=== PATIENT | female | born 1950 | race Caucasian/White ===

== ENCOUNTER → 2016-04-01 | Outpatient (CLI) | payer OTHER ==
--- NOTE | 2016-04-01 13:18 | XR ---
EXAMINATION TYPE: XR chest 2V DATE OF EXAM: 04/01/2016 11:51 AM COMPARISON: Chest x-ray February 13, 2016 HISTORY: Abnormal lung findings per order. Abnormal x-ray with fluid in lungs per patient. TECHNIQUE: Frontal and lateral views of the chest are obtained. FINDINGS: Low lung volumes with mild central vascular congestion is felt still present. There is no n ew focal air space opacity, pleural effusion, or pneumothorax seen bilaterally on current study. Poor visualization of right heart border is unchanged from 2010 study. The cardiac silhouette size is sta ble and mildly enlarged. Some atherosclerotic change in aortic knob is present. Postsurgical change l ower cervical spine is partially imaged. IMPRESSION: Low lung volumes redemonstrated unchanged from 2010 study. There is mild cardiomegaly wi th suspected mild central vascular congestion, CHF exacerbation cannot be excluded. Clinical correlat ion advised. No significant change from most recent x-ray noted.
== END | disposition home or self-care (01) ==
LOC: RADXRMAIN 11:37
PROVIDERS: ATTEND Family Medicine
DX: I51.7 Cardiomegaly (principal)
CPT/HCPCS: 71020

== ENCOUNTER → 2016-05-15 | Outpatient (CLI) | payer OTHER ==
--- NOTE | 2016-05-16 14:33 | MM ---
Reason for exam: screening (asymptomatic). Last mammogram was performed 1 year ago. History: Patient is postmenopausal and has history of endometrial cancer at age 23. Family history of breast cancer in sister at age 62. Took hormonal contraceptives for 2 years beginning at age 28. Physical Findings: A clinical breast exam by your physician is recommended on an annual basis and results should be correlated with mammographic findings. MG Screening Mammo w CAD Bilateral CC and MLO view(s) were taken. Prior study comparison: May 09, 2015, bilateral MG screening mammo w CAD. December 01, 2012, bilateral digital screening mammo w/CAD. There are scattered fibroglandular densities. No significant changes when compared with prior studies. ASSESSMENT: Benign, BI-RAD 2 RECOMMENDATION: Routine screening mammogram of both breasts in 1 year.
== END ==
LOC: RADMAMWWP 11:03
PROVIDERS: ATTEND Family Medicine
DX: Z12.31 Encounter for screening mammogram for malignant neoplasm of breast (principal)

== ENCOUNTER → 2018-02-13 | Outpatient (CLI) | payer MEDICARE ==
--- NOTE | 2018-02-13 16:57 | XR ---
EXAMINATION TYPE: XR chest 2V DATE OF EXAM: 02/13/2018 COMPARISON: 04/01/2016 HISTORY: Chest pain for months TECHNIQUE: Frontal and lateral views of the chest are obtained. FINDINGS: Minimal pulmonary vascular congestion is seen as appreciated on the prior exam in 2017. Ag ain there is mild cardiomegaly. No sizable pleural effusion or pneumothorax. No focal consolidation. Postsurgical changes of the cervical spine are partially visualized. IMPRESSION: Similar-appearing mild pulmonary vascular congestion and cardiomegaly in comparison to t he exam of 2017 suggest cardiogenic fluid overload/CHF exacerbation.
== END | disposition home or self-care (01) ==
LOC: RADXRMAIN 16:27
PROVIDERS: ATTEND Family Medicine
DX: R07.89 Other chest pain (principal)
CPT/HCPCS: 71046

== ENCOUNTER → 2018-07-02 | Outpatient (CLI) | payer MEDICARE ==
--- NOTE | 2018-07-03 13:31 | MM ---
Reason for exam: screening (asymptomatic). Last mammogram was performed 2 years and 2 months ago. History: Patient is postmenopausal and has history of endometrial cancer at age 23. Family history of breast cancer in sister at age 62. Took hormonal contraceptives for 2 years beginning at age 28. Physical Findings: A clinical breast exam by your physician is recommended on an annual basis and results should be correlated with mammographic findings. MG Screening Mammo w CAD Bilateral CC and MLO view(s) were taken. Prior study comparison: May 15, 2016, bilateral MG screening mammo w CAD. May 09, 2015, bilateral MG screening mammo w CAD. There are scattered fibroglandular densities. No suspicious abnormality. No significant changes when compared with prior studies. ASSESSMENT: Negative, BI-RAD 1 RECOMMENDATION: Routine screening mammogram of both breasts in 1 year.
== END | disposition home or self-care (01) ==
LOC: RADMAMWWP 12:53
PROVIDERS: ATTEND Family Medicine
DX: Z12.31 Encounter for screening mammogram for malignant neoplasm of breast (principal)
CPT/HCPCS: 77067

== ENCOUNTER → 2020-01-17 | Outpatient (CLI) | payer MEDICARE ==
--- NOTE | 2020-01-17 15:19 | XR ---
EXAMINATION TYPE: XR chest 2V DATE OF EXAM: 01/17/2020 COMPARISON: CXR from 02/13/2018. HISTORY: Cough. TECHNIQUE: Frontal and lateral views of the chest are obtained. FINDINGS: There is no focal air space opacity, pleural effusion, or pneumothorax seen. The cardiac silhouette size is stable and mildly enlarged. Surgical change cervical spine partially imaged.. IMPRESSION: Cardiomegaly without acute pulmonary process. No significant change from prior.
== END | disposition home or self-care (01) ==
LOC: RADXRMAIN 14:07
PROVIDERS: ATTEND Family Medicine
DX: I51.7 Cardiomegaly (principal)
CPT/HCPCS: 71046

== ENCOUNTER → 2020-02-21 | Outpatient (CLI) | payer MEDICARE ==
--- NOTE | 2020-02-21 12:46 | FL ---
MODIFIED SWALLOW / DEGLUTITION STUDY DATE OF EXAM: 02/21/2020 CLINICAL HISTORY: 69-year-old female R13.10, dysphagia, recent cervical fusion, trouble swallowing. TECHNIQUE: Deglutition study is performed utilizing thin liquid barium, honey and nectar thick liqui d barium, barium thick applesauce, and barium coated cracker. COMPARISON: None. Total fluoroscopy time: 1 minute 53 seconds. Total images: None. Real-time fluoroscopy support was provided to speech pathology. FINDINGS: Status post C3-C6 posterior cervical fusion. There is pronounced cervical kyphosis. Some prevertebral soft tissue thickening likely positional. The oral and pharyngeal phases show satisfactory initiation and propagation with all modalities teste d. Normal mastication is seen with solid modalities tested. There is no evidence of penetration or aspiration with any modality tested. Mild CP spasm is noted. No significant pharyngeal residue was appreciated. IMPRESSION: Normal oropharyngeal phase. Mild CP spasm. Please refer to speech therapist notes for further details if necessary.
== END | disposition home or self-care (01) ==
LOC: RADFLMAIN 11:34
PROVIDERS: ATTEND Otolaryngology
DX: R13.10 Dysphagia, unspecified (principal)
CPT/HCPCS: 74230

== ENCOUNTER → 2020-05-04 | Outpatient (CLI) | payer MEDICARE ==
--- NOTE | 2020-05-05 14:10 | MM ---
Reason for exam: screening (asymptomatic). Last mammogram was performed 1 year and 10 months ago. History: Patient is postmenopausal and has history of endometrial cancer at age 23. Family history of breast cancer in sister at age 62. Took hormonal contraceptives for 2 years beginning at age 28. Physical Findings: A clinical breast exam by your physician is recommended on an annual basis and results should be correlated with mammographic findings. MG Screening Mammo w CAD Bilateral CC and MLO view(s) were taken. Prior study comparison: July 02, 2018, bilateral MG screening mammo w CAD. May 15, 2016, bilateral MG screening mammo w CAD. There are scattered fibroglandular densities. There is no discrete abnormality. No significant changes when compared with prior studies. ASSESSMENT: Negative, BI-RAD 1 RECOMMENDATION: Routine screening mammogram of both breasts in 1 year.
== END | disposition home or self-care (01) ==
LOC: RADMAMWWP 09:57
PROVIDERS: ATTEND Family Medicine
DX: Z12.31 Encounter for screening mammogram for malignant neoplasm of breast (principal)
CPT/HCPCS: 77067

== ENCOUNTER → 2020-05-15 | Outpatient (CLI) | payer MEDICARE ==
--- NOTE | 2020-05-15 14:37 | XR ---
EXAMINATION TYPE: XR elbow limited LT DATE OF EXAM: 05/15/2020 CLINICAL HISTORY: Pain. TECHNIQUE: Frontal and lateral images of the left elbow are obtained. COMPARISON: None FINDINGS: There is no acute fracture/dislocation evident in the left elbow. No abnormal fat pad sig ns are seen. The overlying soft tissue appears unremarkable. IMPRESSION: As above.
== END ==
LOC: RADXRMAIN 14:14
PROVIDERS: ATTEND Family Medicine
DX: M25.522 Pain in left elbow (principal)

== ENCOUNTER → 2021-01-19 | Outpatient (CLI) | payer MEDICARE ==
[2021-01-19 15:17] LABS: HCT 42.5 % (37.2-46.3); HGB 13.2 g/dL (12.0-15.0); MCHC 31.1 g/dL (32.0-37.0); MCV 99.8 fL (80.0-97.0); Platelet Count 234 X 10*3/uL (140-440); RBC 4.26 X 10*6/uL (4.10-5.20); RDW 14.3 % (11.5-14.5); WBC 7.69 X 10*3/uL (4.50-10.00)
[2021-01-19 16:14] LABS: African American GFR (CKD) 56.2 (60.0-200.0); Anion Gap 11.4 mmol/L (4.00-12.00); BUN/Creat Ratio 20.43 Ratio (12.00-20.00); Blood Urea Nitrogen 23.5 mg/dL (9.0-27.0); Non-African American GFR(CKD) 48.5 (60.0-200.0); Potassium 5.3 mmol/L (3.5-5.5)
== END | disposition home or self-care (01) ==
LOC: LABWHC1 10:20
PROVIDERS: ATTEND Internal Medicine Cardiovascular Disease
DX: R60.0 Localized edema (principal)
CPT/HCPCS: 36415; 80048; 83880; 84443; 85027

== ENCOUNTER → 2021-02-06 | Outpatient (CLI) | payer MEDICARE ==
--- NOTE | 2021-02-06 15:57 | XR ---
EXAMINATION TYPE: XR knee limited LT DATE OF EXAM: 02/06/2021 CLINICAL HISTORY: Chronic pain. TECHNIQUE: Frontal and lateral views of the left knee are obtained. COMPARISON: Bilateral leg x-rays January 11, 2010 FINDINGS: There is no acute fracture/dislocation evident in left knee. Mild to moderate narrowing wi th mild spurring patellofemoral compartment. Mild narrowing medial tibiofemoral compartment. Focal c alcification near MCL insertion consistent with a Tim Stieda lesion noted. Meniscal calcificat ion laterally is seen. Overlying clothing material is present. IMPRESSION: As above.
== END | disposition home or self-care (01) ==
LOC: RADXRMAIN 15:27
PROVIDERS: ATTEND Family Medicine
DX: M17.12 Unilateral primary osteoarthritis, left knee (principal)

== ENCOUNTER → 2021-08-14 | Outpatient (CLI) | payer MEDICARE ==
--- NOTE | 2021-08-14 12:24 | XR ---
EXAMINATION TYPE: XR lumbar spine 2 or 3V DATE OF EXAM: 08/14/2021 CLINICAL HISTORY: Intervertebral disc degeneration. TECHNIQUE: Frontal and lateral images of the lumbar spine are obtained. COMPARISON: MRI lumbar spine 2013 FINDINGS: There are 5 lumbar type vertebral bodies identified. There is dextroconvex scoliosis cente red at L2-L3 level. There is grade 1 anterolisthesis L4 on L5 and slight grade 1 retrolisthesis L5 on S1. There is grade 1 retrolisthesis L1 on L2 and L2 on L3. Findings were prominent from prior MRI. T here is severe disc space narrowing with vacuum disc phenomenon at L5-S1 level with endplate sclerosi s. There is moderate to severe disc space narrowing L1-L2 level. Moderate multilevel anterior and lat eral spurring in the lower thoracic and upper lumbar spine. Moderate to severe overlying arterial vas cular calcification. IMPRESSION: As above.
== END | disposition home or self-care (01) ==
LOC: RADXRMAIN 11:30
PROVIDERS: ATTEND Family Medicine
DX: M51.37 Other intervertebral disc degeneration, lumbosacral region (principal)
CPT/HCPCS: 72100

== ENCOUNTER 2021-10-18 08:17 | Day surgery (SDC) | payer MEDICARE ==
--- NOTE | 2021-10-18 08:04 | P.GSHP ---
History of Present Illness H&P Date: 10/18/21 CHIEF COMPLAINT: Colon screen HISTORY OF PRESENT ILLNESS: The patient is a 70-year-old female who presents for colon screen. Lower endoscopy was offered for further evaluation and management. PAST MEDICAL HISTORY: Please see list. PAST SURGICAL HISTORY: Please see list. MEDICATIONS: Please see list. ALLERGIES: Please see list. SOCIAL HISTORY: No illicit drug use FAMILY HISTORY: No reports of Crohn disease or ulcerative colitis. REVIEW OF ORGAN SYSTEMS: CONSTITUTIONAL: No reports of fevers or chills. PHYSICAL EXAM: VITAL SIGNS: Stable GENERAL: Well-developed pleasant in no acute distress. HEENT: No scleral icterus. Extraocular movements grossly intact. Moist buccal mucosa. NECK: Supple without lymphadenopathy. CHEST: Unlabored respirations. Equal bilateral excursions. CARDIOVASCULAR: Regular rate and rhythm. Distal 2+ pulses. ABDOMEN: Soft, nontender, nondistended. MUSCULOSKELETAL: No clubbing, cyanosis, or edema. ASSESSMENT: 1. Colon screen. PLAN: 1. Recommend proceeding with a lower endoscopy Past Medical History Past Medical History: COPD, GERD/Reflux, Hyperlipidemia, Hypertension, Memory Impairment, Osteoarthritis (OA), Thyroid Disorder Additional Past Medical History / Comment(s): urinary incontinence, crushed tailbone-hard to walk, herniated discs History of Any Multi-Drug Resistant Organisms: None Reported Past Surgical History: Appendectomy, Section, Heart Catheterization Additional Past Surgical History / Comment(s): NECK FUSION, colonoscopy Past Anesthesia/Blood Transfusion Reactions: No Reported Reaction, Motion Sickness Smoking Status: Current every day smoker - Past Family History Mother Family Medical History: Cancer Father Family Medical History: Cancer Additional Family Medical History / Comment(s): PROSTATE Brother(s) Family Medical History: Cancer Additional Family Medical History / Comment(s): ESOPHAGUS CANCER Sister(s) Family Medical History: Cancer Additional Family Medical History / Comment(s): BREAST Medications and Allergies Home Medications Medication Instructions Recorded Confirmed Type Cholecalciferol [Vitamin D3] 2,000 unit PO DAILY 08/29/15 10/17/21 History Levothyroxine Sodium [Synthroid] 50 mcg PO DAILY 08/29/15 10/17/21 History Oxybutynin Chloride [Ditropan] 5 mg PO TID 08/29/15 10/17/21 History Pregabalin [Lyrica] 200 mg PO TID 08/29/15 10/17/21 History Simvastatin [Zocor] 40 mg PO HS 08/29/15 10/17/21 History Acetaminophen [Tylenol Arthritis] 650 mg PO BID PRN 10/24/15 10/17/21 History Aspirin EC [Ecotrin] 81 mg PO DAILY 10/24/15 10/17/21 History Donepezil HCl [Aricept] 10 mg PO HS 10/17/21 10/17/21 History Furosemide [Lasix] 20 mg PO DAILY 10/17/21 10/17/21 History Ginkgo Biloba [place] Extract [Ginkgo 40 mg PO DAILY 10/17/21 10/17/21 History Biloba] HYDROcodone/APAP 5-325MG [[place] 2 tab PO TID 10/17/21 10/17/21 History 5-325] Metoprolol Succinate (ER) [Toprol 12.5 mg PO HS 10/17/21 10/17/21 History Xl] Omeprazole 20 mg PO HS 10/17/21 10/17/21 History PARoxetine [Paxil] 60 mg PO DAILY 10/17/21 10/17/21 History Potassium Chloride [Klor-Con 8] 8 meq PO DAILY 10/17/21 10/17/21 History buPROPion HCL [buPROPion HCL SR] 150 mg PO Q12HR 10/17/21 10/17/21 History Allergies Allergy/AdvReac Type Severity Reaction Status Date / Time Penicillins Allergy Rash/Hives Verified 10/17/21 10:42 venom-honey bee Allergy Swelling Verified 10/17/21 10:03 [bee venom (honey bee)]
[~2021-10-18 08:17] MED LIST: LACTATED RINGERS 1,000 ML IV SCH
[2021-10-18 08:50] VITALS: TEMP 97.1
[2021-10-18] MEDS ORDERED: PROPOFOL 10 MG/ML 20 ML VIAL IV ONE (09:10)
[2021-10-18] MEDS ORDERED: LIDOCAINE 2% INJ 20 MG/ML (2 ML VIAL) ONE (09:10)
--- NOTE | 2021-10-18 09:35 | P.PCN ---
Date of Procedure: 10/18/21 Description of Procedure: PREOPERATIVE DIAGNOSIS: Personal history of colon polyps Colonoscopy screening POSTOPERATIVE DIAGNOSIS: Tubular adenoma transverse colon Internal hemorrhoids, grade 2 OPERATION: Colonoscopy to the ileocecal valve and appendiceal orifice, cecum Colonoscopy with hot snare polypectomy SURGEON: Lissa Yu MD. ANESTHESIA: MAC. INDICATIONS: The patient is an 70-year-old female who presents personal history of colon polyps. Last colonoscopy less than 5 years. Benefits and risks were described and informed consent was obtained. DESCRIPTION OF PROCEDURE: The patient had undergone Sutab prep. The patient had been brought into the operating room and laid in the left lateral decubitus position. After adequate intravenous sedation, the rectum was examined with 2% lidocaine jelly. External hemorrhoids were encountered. The rectal tone was within normal limits. No lesions were palpated in the rectal vault. An Olympus colonoscope was advanced until the cecum, ileocecal valve and appendiceal orifice were clearly viewed. The prep was excellent. No sigmoid diverticulosis was encountered. Colonic polyps were found and removed. No evidence of focal colitis was found. Retroflexion of the scope demonstrated grade 2 internal hemorrhoids without active bleeding or inflammation. The colon was desufflated. The patient had tolerated the procedure well. Withdrawal time was over 6 minutes. FINDINGS: Aronchick preparation quality scale 1 (1-5) Internal hemorrhoids, grade 2 External hemorrhoids, grade 2. No arteriovenous malformations. No sigmoid diverticulosis Removal of 1 polyps: - Snare polypectomy transverse colon, 12 mm flat villous adenoma polyp. No focal colitis. RECOMMENDATIONS: Repeat colonoscopy in 2 years, 2023 Plan - Discharge Summary Discharge Rx Participant: No New Discharge Prescriptions: Continue Cholecalciferol [Vitamin D3 (25 Mcg = 1000 Iu)] 2,000 unit PO DAILY Simvastatin [Zocor] 40 mg PO HS Oxybutynin Chloride [Ditropan] 5 mg PO TID Pregabalin [Lyrica] 200 mg PO TID Levothyroxine Sodium [Synthroid] 50 mcg PO DAILY Aspirin EC [Ecotrin Low Dose] 81 mg PO DAILY Acetaminophen [Tylenol Arthritis] 650 mg PO BID PRN PRN Reason: Pain Omeprazole 20 mg PO HS PARoxetine [Paxil] 60 mg PO DAILY HYDROcodone/APAP 5-325MG [Hy[place] 5-325] 2 tab PO TID Furosemide [Lasix] 20 mg PO DAILY Donepezil HCl [Aricept] 10 mg PO HS Metoprolol Succinate (ER) [Toprol XL] 12.5 mg PO HS buPROPion HCL [buPROPion HCL SR] 150 mg PO Q12HR Potassium Chloride [Klor-Con 8] 8 meq PO DAILY Ginkgo Biloba [place] Extract [Ginkgo Biloba] 40 mg PO DAILY Discharge Medication List Cholecalciferol [Vitamin D3 (25 Mcg = 1000 Iu)] 2,000 unit PO DAILY 08/29/15 [History] Levothyroxine Sodium [Synthroid] 50 mcg PO DAILY 08/29/15 [History] Oxybutynin Chloride [Ditropan] 5 mg PO TID 08/29/15 [History] Pregabalin [Lyrica] 200 mg PO TID 08/29/15 [History] Simvastatin [Zocor] 40 mg PO HS 08/29/15 [History] Acetaminophen [Tylenol Arthritis] 650 mg PO BID PRN 10/24/15 [History] Aspirin EC [Ecotrin Low Dose] 81 mg PO DAILY 10/24/15 [History] Donepezil HCl [Aricept] 10 mg PO HS 10/17/21 [History] Furosemide [Lasix] 20 mg PO DAILY 10/17/21 [History] Ginkgo Biloba [place] Extract [Ginkgo Biloba] 40 mg PO DAILY 10/17/21 [History] HYDROcodone/APAP 5-325MG [[place] 5-325] 2 tab PO TID 10/17/21 [History] Metoprolol Succinate (ER) [Toprol XL] 12.5 mg PO HS 10/17/21 [History] Omeprazole 20 mg PO HS 10/17/21 [History] PARoxetine [Paxil] 60 mg PO DAILY 10/17/21 [History] Potassium Chloride [Klor-Con 8] 8 meq PO DAILY 10/17/21 [History] buPROPion HCL [buPROPion HCL SR] 150 mg PO Q12HR 10/17/21 [History] Follow up Appointment(s)/Referral(s): Lissa Yu MD [STAFF PHYSICIAN] - As Needed Patient Instructions/Handouts: *[facility] - (Anesthesia) Endoscopy Discharge Instructions, Colonoscopy (DC), Colorectal Polyps (GEN) Activity/Diet/Wound Care/Special Instructions: Repeat colonoscopy in 3 years, 2024 Discharge Disposition: HOME SELF-CARE
[2021-10-18 09:51] VITALS: BP 136/70; PULSE 58; RESP 18
== END 2021-10-18 10:04 | disposition home or self-care (01) ==
LOC: ORWHC2ENDO 08:17
PROVIDERS: ATTEND Surgery Plastic and Reconstructive Surgery
DX: Z12.11 Encounter for screening for malignant neoplasm of colon (principal); K63.5 Polyp of colon; K64.1 Second degree hemorrhoids; Z86.010 Personal history of colon polyps; I10 Essential (primary) hypertension; E78.5 Hyperlipidemia, unspecified; J44.9 Chronic obstructive pulmonary disease, unspecified; F17.200 Nicotine dependence, unspecified, uncomplicated; E03.9 Hypothyroidism, unspecified; K21.9 Gastro-esophageal reflux disease without esophagitis; M19.90 Unspecified osteoarthritis, unspecified site; F41.9 Anxiety disorder, unspecified; F32.A Depression, unspecified; Z88.0 Allergy status to penicillin; Z91.030 Bee allergy status; Z90.49 Acquired absence of other specified parts of digestive tract; Z80.42 Family history of malignant neoplasm of prostate; Z80.3 Family history of malignant neoplasm of breast; Z80.0 Family history of malignant neoplasm of digestive organs; Z79.890 Hormone replacement therapy; Z79.899 Other long term (current) drug therapy; Z79.82 Long term (current) use of aspirin; Z79.891 Long term (current) use of opiate analgesic
CPT/HCPCS: 88305; 45385; J2704; J2001

== ENCOUNTER → 2021-10-31 | Outpatient (CLI) | payer MEDICARE ==
--- NOTE | 2021-11-01 18:50 | MM ---
Reason for Exam: Screening (asymptomatic). Last mammogram was performed 1 year(s) and 6 month(s) ago. Patient History: Menarche at age 16. First Full-Term at age 26. Postmenopausal. Endometrial cancer, age 23. Hormonal Contraceptives for 2 years from age 28 until age 30. Sister had breast cancer, age 62. Risk Values: Stephanie 5 year model risk: 3.1%. NCI Lifetime model risk: 9.3%. Prior Study Comparison: 05/15/2016 Bilateral Screening Mammogram, [facility]. 07/02/2018 Bilateral Screening Mammogram, [facility]. 05/04/2020 Bilateral Screening Mammogram, [facility]. Tissue Density: There are scattered fibroglandular densities. Findings: Analyzed By CAD. No significant change from prior exams. Overall Assessment: Negative, BI-RAD 1 Management: Screening Mammogram of both breasts in 1 year. 1. Patient should continue monthly self breast exams. 2. A clinical breast exam by your physician is recommended on an annual basis. 3. This exam should not preclude additional follow-up of suspicious palpable abnormalities. Electronically signed and approved by: Suha Doyle M.D. Radiologist
== END | disposition home or self-care (01) ==
LOC: RADMAMWWP 11:23
PROVIDERS: ATTEND Family Medicine
DX: Z12.31 Encounter for screening mammogram for malignant neoplasm of breast (principal)
CPT/HCPCS: 77063; 77067

== ENCOUNTER → 2023-01-07 | Outpatient (CLI) | payer MEDICARE ==
--- NOTE | 2023-01-07 15:51 | XR ---
EXAMINATION TYPE: XR chest 2V DATE OF EXAM: 01/07/2023 3:45 PM CLINICAL INDICATION:Female, 72 years old with history of R06.02 SHORTNESS OF BREATH; COMPARISON: Chest radiographs from 01/17/2020 TECHNIQUE: XR chest 2V Frontal and lateral views of the chest. FINDINGS: Lungs/Pleura: Prominent interstitial lung markings are seen scattered throughout the lungs. No eviden ce of focal consolidation, pneumothorax or pleural effusion. Pulmonary vascularity: Unremarkable. Heart/mediastinum: Cardiomediastinal silhouette is prominent in size. Musculoskeletal: No acute osseous pathology. There is fixation hardware in the lower cervical spine. IMPRESSION: No acute process similar exam to prior.
== END | disposition home or self-care (01) ==
LOC: RADXRMAIN 15:30
PROVIDERS: ATTEND Family Medicine
DX: R06.02 Shortness of breath (principal)
CPT/HCPCS: 71046

== ENCOUNTER → 2023-04-17 | Outpatient (CLI) | payer MEDICARE ==
--- NOTE | 2023-04-17 13:08 | MR ---
EXAMINATION TYPE: MR lumbar spine wo con DATE OF EXAM: 04/17/2023 10:29 AM CLINICAL INDICATION:Female, 72 years old with history of M47.817 RADICULOPATHY; PHH, Severe back pain x15 years travels down both legs COMPARISON: None TECHNIQUE: Multi planar, multi sequence imaging was performed utilizing: T1-weighted, T2-weighted, a nd turbo inversion recovery imaging of the lumbar spine. IV Contrast: cc . (None if empty) FINDINGS: Alignment: The lumbar vertebral bodies have preserved heights and with scoliosis alignment. Grade 2 a nterolisthesis of L4 and L5. Cord: The conus medullaris and the distal spinal cord appear unremarkabl e with regards to their signal intensity and morphology. Bones/Discs: Multilevel disc degeneration changes with osteophyte formation, disc space narrowing, Sc hmorl's nodes, and facet joint arthropathy. No abnormal inversion recovery signal to suggest bony dayna ma. Multilevel disc desiccation is present. Pseudoarthrosis of the spinous processes. T12-L1: Disc bulge and facet joint arthropathy result in mild spinal canal and mild to moderate left and moderate right neural foraminal stenosis. L1-L2: Disc bulge and facet joint arthropathy result in mild spinal canal and severe left and moderat e right neural foraminal stenosis. L2-L3: Disc bulge and facet joint arthropathy result in moderate spinal canal and severe left and mod erate right neural foraminal stenosis. L3-L4: Disc bulge and facet joint arthropathy result in severe spinal canal and moderate to severe bi lateral neural foraminal stenosis. L4-L5: Disc uncovering from grade 2 anterolisthesis and facet joint arthropathy with severe spinal ca nal stenosis and severe right and moderate to severe left bilateral neural foraminal stenosis. L5-S1: Large disc bulge is present centrally which results in mild spinal canal stenosis. Additionall y there is facet joint arthropathy with severe bilateral neural foraminal stenosis. No significant spinal canal or neural foraminal stenosis in the remainder of the visualized levels. Other findings: None. IMPRESSION: 1. Severe L3-L4 and L4-L5 spinal canal stenosis. At L4-L5 secondary to Grade 2 anterolisthesis of L4 and L5. 2. Severe disc degeneration with associated osteoarthritic changes with multilevel neural foraminal stenosis or neural foraminal stenosis worse at L5-S1 with bilateral severe, severe right L4-L5, moder ate to severe bilateral L3-L4, severe left L2-L3, severe left L1-L2. 3. Findings suggesting Baastrup's disease.
== END | disposition home or self-care (01) ==
LOC: RADMRIMAIN 09:09
PROVIDERS: ATTEND Orthopaedic Surgery Orthopaedic Surgery of the Spine
DX: M51.16 Intervertebral disc disorders with radiculopathy, lumbar region (principal); M47.27 Other spondylosis with radiculopathy, lumbosacral region; M48.061 Spinal stenosis, lumbar region without neurogenic claudication; M43.16 Spondylolisthesis, lumbar region; M99.73 Connective tissue and disc stenosis of intervertebral foramina of lumbar region; M41.86 Other forms of scoliosis, lumbar region; M62.830 Muscle spasm of back; M16.12 Unilateral primary osteoarthritis, left hip
CPT/HCPCS: 72148

== ENCOUNTER → 2023-06-09 | Outpatient (CLI) | payer MEDICARE ==
--- NOTE | 2023-06-09 14:26 | FL ---
COMPARISON: NONE DATE OF EXAM: 06/09/2023 HISTORY: Dysphagia A number of thin and thick substances were ingested under the care of the department of speech pathol ogy. There is no evidence of aspiration or penetration. There is no evidence of obstruction. FL TI ME- 1.0 RM3 NO DAP. IMPRESSION: 1. No evidence of aspiration or penetration.
== END | disposition home or self-care (01) ==
LOC: RADFLMAIN 11:03
PROVIDERS: ATTEND Otolaryngology
DX: R13.13 Dysphagia, pharyngeal phase (principal)
CPT/HCPCS: 74230

== ENCOUNTER → 2023-06-09 | Outpatient (CLI) | payer MEDICARE ==
--- NOTE | 2023-06-12 08:56 | MM ---
Reason for Exam: Screening (asymptomatic). Last mammogram was performed 1 year(s) and 7 month(s) ago. Patient History: Menarche at age 16. First Full-Term at age 26. Postmenopausal. Endometrial cancer, age 23. Hormonal Contraceptives for 2 years from age 28 until age 30. Sister had breast cancer, age 62. Sister had breast cancer, age 53. Risk Values: Stephanie 5 year model risk: 5.5%. NCI Lifetime model risk: 14.5%. Prior Study Comparison: 07/02/2018 Bilateral Screening Mammogram, [facility]. 05/04/2020 Bilateral Screening Mammogram, [facility]. 10/31/2021 Bilateral MG 3D screening mammo w/cad, [facility]. Tissue Density: There are scattered areas of fibroglandular density. Findings: Analyzed By CAD. There is no suspicious group of microcalcifications or new suspicious mass in either breast. Benign calcification. Overall Assessment: Benign, BI-RAD 2 Management: Screening Mammogram of both breasts in 1 year. . Patient should continue monthly self-breast exams. A clinical breast exam by your physician is recommended on an annual basis. This exam should not preclude additional follow-up of suspicious palpable abnormalities. Note on Stephanie scores and lifetime risk: 1. A Stephanie score greater than 3% is considered moderate risk. If this is the case, consider specialist referral to assess eligibility for a risk reducing agent. 2. If overall lifetime risk for the development of breast cancer is 20% or higher, the patient may qualify for future screening with alternating mammogram and breast MRI. Electronically signed and approved by: Villa Marinelli M.D. Radiologis
== END | disposition home or self-care (01) ==
LOC: RADMAMWWP 10:39
PROVIDERS: ATTEND Family Medicine
DX: Z12.31 Encounter for screening mammogram for malignant neoplasm of breast (principal); Z80.3 Family history of malignant neoplasm of breast; Z78.0 Asymptomatic menopausal state
CPT/HCPCS: 77063; 77067

== ENCOUNTER → 2023-12-04 | Outpatient (CLI) | payer MEDICARE ==
--- NOTE | 2023-12-15 22:57 | CTL ---
EXAMINATION TYPE: CT Low Dose Lung DATE OF EXAM ORDERED: 12/04/2023 HISTORY: 73-year-old female current smoker with 50 pack-year history. Lung cancer screening. Z12.2 E NCNTR SCREEN F, F17.[address] DLP: 78.[address] CTDI: 2.4 mGy Automated exposure control for dose reduction was used. SCREENING VISIT: Baseline COMPARISON: Radiograph 01/07/2023 TECHNIQUE: Low dose computed tomography scan was performed through the chest at 1 mm thick sections a nd reconstructed images in multiple planes at 1 mm and [address] DIAGNOSTIC QUALITY: Satisfactory FINDINGS: The heart is upper limits of normal in size without pericardial effusion. Scattered three-vessel nicolas nary artery calcifications are present. Ectatic ascending aorta 3.7 cm. Mild atherosclerotic arch calcifications. Conventional arch vessel br anching anatomy. No thoracic lymphadenopathy by CT size criteria. There is scattered mild groundglass change, possibly mosaic attenuation. No kristi consolidation or pl eural effusion. A few scattered pulmonary nodules measuring up to 7 mm, right upper lobe axial image 64, image 89, an d image 91. 4 mm pulmonary nodule left upper lobe, axial image 84. Visualized upper abdomen shows no gross abnormality. There is motion limitation in assessment. Bones: Moderate degenerative disc disease throughout the thoracic spine. No osseous destructive proce ss. IMPRESSION: 1. LungRADS Category 3 (probably benign, 1-2% chance of malignancy). A few scattered pulmonary nodule s measuring up to 7 mm on baseline screening. 2. Additional scattered groundglass change, possible mosaic attenuation. Consider small airways disea se or an interstitial pneumonitis such as NSIP or DIP. Consider pulmonary medicine evaluation if any chronic respiratory symptoms. 3. Scattered coronary artery calcifications. CT LUNG RAD AND CT CHEST RECOMMENDATION: Lung-Rad 3 Probably Benign: 6 month follow-up LDCT. S Modifier (other clinically significant findings): None [facility], , 12/15/2023 10:55 PM
== END | disposition home or self-care (01) ==
LOC: RADCTMAIN 14:08
PROVIDERS: ATTEND Family Medicine
DX: Z12.2 Encounter for screening for malignant neoplasm of respiratory organs (principal); F17.210 Nicotine dependence, cigarettes, uncomplicated; R91.8 Other nonspecific abnormal finding of lung field; I25.10 Atherosclerotic heart disease of native coronary artery without angina pectoris; I70.90 Unspecified atherosclerosis
CPT/HCPCS: 71271

== ENCOUNTER → 2024-01-02 | Outpatient (CLI) | payer MEDICARE ==
--- NOTE | 2024-01-02 10:41 | CT ---
EXAMINATION TYPE: CT brain wo con DATE OF EXAM: 01/02/2024 COMPARISON: 10/24/2015 HISTORY: memory deficit, dizziness CT DLP: 1064 mGycm Automated exposure control for dose reduction was used. FINDINGS: The ventricles, basal cisterns and sulci over the convexities are moderately enlarged consistent with moderate age-appropriate atrophy. There is been interval development of a small lacunar infarct in the region of the posterior limb of the internal capsule on the right. There is no mass effect or shift in midline structures. There is no acute intra or extra-axial hemorrhage. The posterior fossa is grossly normal. The intraorbital contents appear normal symmetric. Visualized paranasal sinuses and mastoid air cells are well aerated. Impression: 1. Moderate age-appropriate atrophy. 2. No acute bleed or mass effect. 3. 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
== END | disposition home or self-care (01) ==
LOC: RADCTMAIN 09:56
PROVIDERS: ATTEND Psychiatry & Neurology Neurology
CPT/HCPCS: 70450

== ENCOUNTER 2024-02-04 05:34 | Emergency (ER) | payer MEDICARE ==
[2024-02-04] MEDS: KETOROLAC 15 MG/ML 1 ML VIAL IVP STA (06:30)
[2024-02-04] MEDS: SODIUM CHLORIDE 0.9% 500 ML 500 ML IV STA (06:30)
[2024-02-04] MEDS: MORPHINE SULFATE 4 MG/ML SYRINGE IVP STA (06:30)
--- NOTE | 2024-02-04 06:31 | ED ---
Fall HPI - General Chief Complaint: Fall Stated Complaint: Fall Time Seen by Provider: 02/04/24 05:57 Source: patient, RN notes reviewed Mode of arrival: EMS Limitations: no limitations - History of Present Illness Initial Comments: This is a 73-year-old female who presents to the emergency department for a fall. Patient states that this morning she lost her balance and fell. Currently has pain over the left hip and right shoulder. She has been able to ambulate since she fell. Denies hitting her head or any loss of consciousness. Not taking any blood thinners. States that she does lose her balance every now and then and this is not abnormal for her. Denies any dizziness, chest pain, or shortness of breath. MD Complaint: fall - Related Data Home Medications Medication Instructions Recorded Confirmed Cholecalciferol [Vitamin D3 (25 2,000 unit PO DAILY 08/29/15 09/25/22 Mcg = 1000 Iu)] Levothyroxine Sodium [Synthroid] 50 mcg PO DAILY 08/29/15 09/25/22 Pregabalin [Lyrica] 200 mg PO TID 08/29/15 09/25/22 Simvastatin [Zocor] 40 mg PO HS 08/29/15 09/25/22 oxyBUTYnin chloride [Ditropan] 5 mg PO TID 08/29/15 09/25/22 Acetaminophen [Tylenol Arthritis] 650 mg PO BID PRN 10/24/15 09/25/22 Aspirin EC [Ecotrin Low Dose] 81 mg PO DAILY 10/24/15 09/25/22 Donepezil HCl [Aricept] 10 mg PO HS 10/17/21 09/25/22 Furosemide [Lasix] 20 mg PO DAILY 10/17/21 09/25/22 HYDROcodone/APAP 5-325MG [[place] 2 tab PO TID 10/17/21 09/25/22 5-325] Omeprazole 20 mg PO HS 10/17/21 09/25/22 PARoxetine [Paxil] 60 mg PO DAILY 10/17/21 09/25/22 Potassium Chloride [Klor-Con 8] 8 meq PO DAILY 10/17/21 09/25/22 buPROPion HCL [buPROPion HCL SR] 150 mg PO Q12HR 10/17/21 09/25/22 Metoprolol Succinate (ER) [Toprol 25 mg PO DAILY 09/27/22 09/27/22 Xl] Umeclidinium Brea [Incruse 1 puff INHALATION PRN 09/27/22 Ellipta] Allergies Allergy/AdvReac Type Severity Reaction Status Date / Time Penicillins Allergy Rash/Hives Verified 02/04/24 05:37 venom-honey bee Allergy Swelling Verified 02/04/24 05:37 [bee venom (honey bee)] Review of Systems ROS Statement: Those systems with pertinent positive or pertinent negative responses have been documented in the HPI. ROS Other: All systems not noted in ROS Statement are negative. Past Medical History Past Medical History: COPD, GERD/Reflux, Hyperlipidemia, Hypertension, Memory Impairment, Osteoarthritis (OA), Thyroid Disorder Additional Past Medical History / Comment(s): urinary incontinence, crushed tailbone, herniated discs History of Any Multi-Drug Resistant Organisms: None Reported Past Surgical History: Appendectomy, Section, Heart Catheterization Additional Past Surgical History / Comment(s): NECK FUSION, colonoscopy Past Anesthesia/Blood Transfusion Reactions: No Reported Reaction, Motion Sickness Past Psychological History: Anxiety, Depression Smoking Status: Former smoker Past Alcohol Use History: Rare Past Drug Use History: None Reported - Past Family History Mother Family Medical History: Cancer Father Family Medical History: Cancer Additional Family Medical History / Comment(s): PROSTATE Brother(s) Family Medical History: Cancer Additional Family Medical History / Comment(s): ESOPHAGUS CANCER Sister(s) Family Medical History: Cancer Additional Family Medical History / Comment(s): BREAST General Exam Limitations: no limitations General appearance: alert, in no apparent distress Head exam: Present: atraumatic, normocephalic, normal inspection Respiratory exam: Present: normal lung sounds bilaterally. Absent: respiratory distress, wheezes, rales, rhonchi, stridor Cardiovascular Exam: Present: regular rate, normal rhythm, normal heart sounds. Absent: systolic murmur, diastolic murmur, rubs, gallop, clicks Extremities exam: Present: other (No shortening or rotation of the left lower extremity. Range of motion limited by pain. 2+ DP and PT pulses. Mild tenderness over the right shoulder and clavicle. Full range of motion. 2+ radial pulses) Neurological exam: Present: alert, oriented X3, CN II-XII intact Psychiatric exam: Present: normal affect, normal mood Skin exam: Present: warm, dry, intact, normal color. Absent: rash Course Vital Signs 02/04/24 05:37 Temperature 96.8 F L Pulse Rate 42 L Respiratory 18 Rate Blood Pressure 135/66 O2 Sat by Pulse 96 Oximetry Medical Decision Making - Medical Decision Making This is a 73-year-old female who presents to the emergency department for a fall. Was pt. sent in by a medical professional or institution? @ -No Did you speak to anyone other than the patient for history? @ -No Did you review nursing and triage notes? @ -Yes, and I agree, it is accurate with regards to the patient's symptoms. Were old charts reviewed? @ -No Differential Diagnosis? @ -Differential Musculoskeletal Muscular strain, contusion, ligament sprain, fracture, arthritis, septic arthritis, bursitis, cellulitis, muscle spasm, nerve compression, DVT, arterial occlusion, herpes zoster, electrolyte abnormality, tumor.... This is not meant to be in all inclusive list EKG interpreted by me (3pts min.)? @ -Not obtained X-rays interpreted by me (1pt min.)? @ -X-ray of the left hip and AP pelvis obtained. My interpretation identifies no acute fractures. X-ray of the right shoulder obtained. My interpretation identifies no acute fractures. CT interpreted by me (1pt min.)? @ -Not obtained U/S interpreted by me (1pt. min.)? @ -Not obtained What testing was considered but not performed? (CT, X-rays, U/S, labs)? Why? @ -None What meds were considered but not given? Why? @ -None Did you discuss the management of the patient with other professionals? @ -No Did you reconcile home meds? @ -No Was smoking cessation discussed for >3mins.? @ -I discussed smoking cessation for greater than 3 minutes. The risk of smoking were discussed with the patient including but not limited to risks of cancer, stroke, coronary artery disease and COPD. Also discussed with patient were multiple methods of quitting smoking. Lastly we discussed the financial cost of smoking. Was critical care preformed (if so, how long)? @ -No Were there social determinants of health that impacted care today? How? (Homelessness, low income, unemployed, alcoholism, drug addiction, transportation, low edu. Level, literacy, decrease access to med. care, usp, rehab)? @ -No Was there de-escalation of care discussed even if they declined? (Discuss DNR or withdrawal of care, Hospice)? @ -No What co-morbidities impacted this encounter? (DM, HTN, Smoking, COPD, CAD, Cancer, CVA, Hep., AIDS, mental health diagnosis, sleep apnea, morbid obesity)? @ -Smoking, osteoarthritis Was patient admitted / discharged? @ -Discharged. X-rays of the left hip and AP pelvis as well as the right shoulder obtained revealing no acute fractures. Pain was managed in the emergency department. She was able to ambulate afterwards and overall felt much better. Advised ibuprofen and Tylenol as needed for pain relief. She does also state that she takes Vicodin at home, but has been without this and needs to follow-up with her PCP for a refill. Advised she do that as well. Patient discharged home in stable condition. Case discussed with ED attending Dr. Willams. Return precautions reviewed in depth, the patient is instructed to return to the emergency department with any new, worsening, or concerning symptoms. Patient verbalized understanding. Undiagnosed new problem with uncertain prognosis? @ -None Drug Therapy requiring intensive monitoring for toxicity (Heparin, Nitro, Insulin, Cardizem)? @ -None Were any procedures done? @ -None Diagnosis/symptom? @ -Fall, left hip pain, right shoulder pain Acute, or Chronic, or Acute on Chronic? @ -Acute Uncomplicated (without systemic symptoms) or Complicated (systemic symptoms)? @ -Uncomplicated Side effects of treatment? @ -None Exacerbation, Progression, or Severe Exacerbation] @ -Not applicable Poses a threat to life or bodily function? @ -No - Radiology Data Radiology results: report reviewed, image reviewed Disposition Clinical Impression: Fall, Left hip pain, Right shoulder pain Disposition: HOME SELF-CARE Instructions (If sedation given, give patient instructions): Fall Prevention for Older Adults (ED) Additional Instructions: Return to the emergency department with any new, worsening, or concerning symptoms. Follow up with your primary care provider to get a refill on your pain medication. Otherwise alternate with ibuprofen and Tylenol. Is patient prescribed a controlled substance at d/c from ED?: No Referrals: Maylin Yu MD [Primary Care Provider] - 1-2 days Time of Disposition: 08:15
--- NOTE | 2024-02-04 06:32 | XR ---
EXAMINATION TYPE: XR shoulder complete RT DATE OF EXAM: 02/04/2024 CLINICAL HISTORY: Fall with pain TECHNIQUE: Three views of the right shoulder are obtained. COMPARISON: None. FINDINGS: There is no acute fracture/dislocation evident in the right shoulder. Moderate narrowing a t the acromioclavicular joint. Glenohumeral joint is preserved. The visualized ribs are intact and un remarkable. IMPRESSION: There is no acute fracture or dislocation in the right shoulder. [facility], , 02/04/2024 6:30 AM
--- NOTE | 2024-02-04 06:34 | XR ---
EXAMINATION TYPE: XR Hip LT and AP Pelvis DATE OF EXAM: 02/04/2024 COMPARISON: NONE HISTORY: Fall with pain TECHNIQUE: A single AP view of the pelvis is obtained. Two views of the left hip are obtained. FINDINGS: There is no acute fracture/dislocation evident in the pelvis or left hip. Advanced degener ative change in the left hip is seen with marked superior joint space loss along with endplate sclero sis. Mild to moderate axial joint space loss right hip is seen. Pubic symphysis is intact. Overlying soft tissues are unremarkable IMPRESSION: There is no acute fracture or dislocation in the pelvis or left hip. [facility], , 02/04/2024 6:32 AM
[2024-02-04] MEDS: KETOROLAC 15 MG/ML 1 ML VIAL IM STA (06:44)
[2024-02-04] MEDS: MORPHINE SULFATE 4 MG/ML SYRINGE IM STA (06:45)
[2024-02-04] MEDS: traMADol 50 MG STARTER PACK 3 TAB BTL PO STA (08:27)
[2024-02-04 08:34] VITALS: BP 135/60; PULSE 44; RESP 19; TEMP 97.6
== END 2024-02-04 08:35 | disposition home or self-care (01) ==
LOC: EC 05:34
DX: M25.552 Pain in left hip (principal); M25.511 Pain in right shoulder; Z87.891 Personal history of nicotine dependence; Z88.0 Allergy status to penicillin; Z91.030 Bee allergy status; W01.0XXA Fall on same level from slipping, tripping and stumbling without subsequent striking against object, initial encounter
CPT/HCPCS: 73502; 73030; 99284; 96372 ×2; J2270; J1885

== ENCOUNTER 2024-02-10 16:32 | Inpatient (IN) | payer MEDICARE ==
--- NOTE | 2024-02-10 16:56 | ED ---
Arrhythmia/Palpitations HPI - General Chief Complaint: Arrhythmia/Palpitations Stated Complaint: heart rate low Time Seen by Provider: 02/10/24 16:50 Source: patient, RN notes reviewed Mode of arrival: wheelchair Limitations: no limitations - History of Present Illness Initial Comments: 73-year-old female with history of hypertension, hyperlipidemia, and COPD presenting to the ER for evaluation of bradycardia. Patient was at [facility] facing baster Dr. Garrett office today where they noted her heart rate was 37. Patient denies chest pain. States she does have shortness of breath but states this is chronic due to her COPD. She takes daily low-dose aspirin, denies blood thinners. She takes metoprolol daily however was told by Dr. Garrett today to discontinue the metoprolol, last dose was this morning. Patient notes that she was evaluated in the ER a week ago for a mechanical fall and noted her blood pressure to be in the 40s at this time. - Related Data Home Medications Medication Instructions Recorded Confirmed Levothyroxine Sodium [Synthroid] 50 mcg PO DAILY 08/29/15 02/10/24 Simvastatin [Zocor] 40 mg PO HS 08/29/15 02/10/24 oxyBUTYnin chloride [Ditropan] 5 mg PO DAILY 08/29/15 02/10/24 Acetaminophen [Tylenol Arthritis] 650 mg PO BID 10/24/15 02/10/24 Aspirin EC [Ecotrin Low Dose] 81 mg PO DAILY 10/24/15 02/10/24 Donepezil HCl [Aricept] 10 mg PO HS 10/17/21 02/10/24 Omeprazole 20 mg PO DAILY 10/17/21 02/10/24 buPROPion HCL [buPROPion HCL SR] 150 mg PO Q12HR 10/17/21 02/10/24 Albuterol Inhaler [Ventolin Hfa 2 puff INHALATION RT-Q6H PRN 02/10/24 02/10/24 Inhaler] Ascorbic Acid [Vitamin C] 1,000 mg PO DAILY 02/10/24 02/10/24 Cholecalciferol [Vitamin D3 (25 50 mcg PO DAILY 02/10/24 02/10/24 Mcg = 1000 Iu)] Cyanocobalamin (Vitamin B-12) 1,000 mcg PO DAILY 02/10/24 02/10/24 [Vitamin B-12] FLUoxetine HCL 40 mg PO DAILY 02/10/24 02/10/24 Ferrous Sulfate [Feosol] 325 mg PO BID 02/10/24 02/10/24 Furosemide [Lasix] 40 mg PO DAILY 02/10/24 02/10/24 HYDROcodone/APAP 10-325MG [[place] 1 tab PO BID PRN 02/10/24 02/10/24 10-325] Memantine [Namenda] 5 mg PO BID 02/10/24 02/10/24 Multivitamins, Thera [Multivitamin 1 tab PO DAILY 02/10/24 02/10/24 (formulary)] Naloxone HCl [Narcan] 4 mg NASAL ONCE PRN 02/10/24 02/10/24 Potassium Chloride [Klor-Con M10] 10 meq PO DAILY 02/10/24 02/10/24 Pregabalin [Lyrica] 200 mg PO TID 02/10/24 02/10/24 Allergies Allergy/AdvReac Type Severity Reaction Status Date / Time Penicillins Allergy Rash/Hives Verified 02/10/24 18:23 venom-honey bee Allergy Swelling Verified 02/10/24 18:23 [bee venom (honey bee)] Review of Systems ROS Statement: Those systems with pertinent positive or pertinent negative responses have been documented in the HPI. ROS Other: All systems not noted in ROS Statement are negative. Past Medical History Past Medical History: COPD, GERD/Reflux, Hyperlipidemia, Hypertension, Memory Impairment, Osteoarthritis (OA), Thyroid Disorder Additional Past Medical History / Comment(s): urinary incontinence, crushed ta ilbone, herniated discs History of Any Multi-Drug Resistant Organisms: None Reported Past Surgical History: Appendectomy, Section, Heart Catheterization Additional Past Surgical History / Comment(s): NECK FUSION, colonoscopy Past Anesthesia/Blood Transfusion Reactions: No Reported Reaction, Motion Sickness Past Psychological History: Anxiety, Depression Smoking Status: Former smoker Past Alcohol Use History: Rare Past Drug Use History: None Reported - Past Family History Mother Family Medical History: Cancer Father Family Medical History: Cancer Additional Family Medical History / Comment(s): PROSTATE Brother(s) Family Medical History: Cancer Additional Family Medical History / Comment(s): ESOPHAGUS CANCER Sister(s) Family Medical History: Cancer Additional Family Medical History / Comment(s): BREAST General Exam Limitations: no limitations General appearance: alert, in no apparent distress Head exam: Present: atraumatic, normocephalic, normal inspection Eye exam: Present: normal appearance, PERRL, EOMI. Absent: scleral icterus, conjunctival injection, periorbital swelling Neck exam: Present: normal inspection. Absent: tenderness, meningismus, lymphadenopathy Respiratory exam: Present: normal lung sounds bilaterally. Absent: respiratory distress, wheezes, rales, rhonchi, stridor Cardiovascular Exam: Present: normal rhythm, bradycardia, normal heart sounds. Absent: systolic murmur, diastolic murmur, rubs, gallop, clicks GI/Abdominal exam: Present: soft, normal bowel sounds. Absent: distended, tenderness, guarding, rebound, rigid Neurological exam: Present: alert, oriented X3 Psychiatric exam: Present: normal affect, normal mood Skin exam: Present: warm, dry, intact, normal color. Absent: rash Course Vital Signs 02/10/24 02/10/24 02/10/24 16:34 16:54 17:52 Temperature 97.6 F 97.7 F Pulse Rate 39 L 37 L 37 L Respiratory 18 16 14 Rate Blood Pressure 121/67 115/64 119/60 O2 Sat by Pulse 96 96 97 Oximetry 02/10/24 02/10/24 02/10/24 18:01 18:34 19:25 Temperature Pulse Rate 36 L 32 L 52 L Respiratory 14 14 19 Rate Blood Pressure 129/60 139/72 123/91 O2 Sat by Pulse 98 99 95 Oximetry EKG Findings - EKG Results: EKG: interpreted by ERMD (EKG reveals sinus bradycardia with nonspecific T wave abnormality. Ventricular rate 36 bpm, AL interval not calculated, QRS duration 89, QT/QTc 367/273) Medical Decision Making - Medical Decision Making Was pt. sent in by a medical professional or institution (, PA, LEAD TEACHER, urgent ca re, hospital, or longterm...) When possible be specific @ -Sent by Dr. Garrett's office for bradycardia Did you speak to anyone other than the patient for history (EMS, parent, family, police, friend...)? What history was obtained from this source @ -Daughter supplemented history Did you review nursing and triage notes (agree or disagree)? Why? @ -I reviewed and agree with nursing and triage notes Were old charts reviewed (outside hosp., previous admission, EMS record, old EKG, old radiological studies, urgent care reports/EKG's, longterm records)? Report findings @ -Vital signs reviewed from previous ER visit and was found to be 42 to 44 bpm Differential Diagnosis (chest pain, altered mental status, abdominal pain women, abdominal pain men, vaginal bleeding, weakness, fever, dyspnea, syncope, headache, dizziness, GI bleed, back pain, seizure, CVA, palpatations, mental health, musculoskeletal)? @ -Differential Palpitations Ventricular arrhythmias, atrial arrhythmias, myocardial infarction, anemia, thyrotoxicosis, electrolyte imbalance, hypokalemia, pulmonary embolism, pulmo nary disease, drugs, alcohol, anxiety, stress.... This is not meant to be an all-inclusive list. EKG interpreted by me (3pts min.). @ -As above X-rays interpreted by me (1pt min.). @ -Chest x-ray reveals no acute process CT interpreted by me (1pt min.). @ -None done U/S interpreted by me (1pt. min.). @ -None done What testing was considered but not performed or refused? (CT, X-rays, U/S, labs)? Why? @ -None What meds were considered but not given or refused? Why? @ -None Did you discuss the management of the patient with other professionals (professionals i.e. , PA, LEAD TEACHER, lab, RT, psych nurse, social director, line dancer, teacher, psychological operations officer, medical case worker)? Give summary @ -I spoke with David from [facility] who accepts admission with cardiology consultation, Dr. García was consulted by Dr. Trejo Was smoking cessation discussed for >3mins.? @ -No Was critical care preformed (if so, how long)? @ -Yes, 45 minutes Were there social determinants of health that impacted care today? How? (Homelessness, low income, unemployed, alcoholism, drug addiction, transportation, low edu. Level, literacy, decrease access to med. care, correction, rehab)? @ -No Was there de-escalation of care discussed even if they declined (Discuss DNR or withdrawal of care, Hospice)? DNR status @ -No What co-morbidities impacted this encounter? (DM, HTN, Smoking, COPD, CAD, Cancer, CVA, ARF, Chemo, Hep., AIDS, mental health diagnosis, sleep apnea, morbid obesity)? @ -None Was patient admitted / discharged? Hospital course, mention meds given and route, prescriptions, significant lab abnormalities, going to OR and other pertinent info. @ -Admitted. This is a 73-year-old female sent by Dr. Garrett's office for evaluation of bradycardia. Patient denies chest pain, is asymptomatic. Patient is bradycardic at 39 bpm, blood pressure 121/67, satting 96% on room air. EKG reveals sinus bradycardia with nonspecific ST changes. Lab work remarkable for hyperkalemia at 5.6, hyponatremia 130, TSH 5.28, creatinine 1.29, BUN 28. Chest x-ray reveals no acute process. Patient was started on IV dopamine drip per cardiology. She was also started on hyperkalemia protocol including calcium gluconate, dextrose, insulin, and Lokelma. Patient was admitted to [facility] with consultation to cardiology. Case was discussed with my ED attending Dr. Trejo. Undiagnosed new problem with uncertain prognosis? @ -No Drug Therapy requiring intensive monitoring for toxicity (Heparin, Nitro, Insulin, Cardizem)? @ -No Were any procedures done? @ -No Diagnosis/symptom? @ -Bradycardia, hyperkalemia Acute, or Chronic, or Acute on Chronic? @ -Acute Uncomplicated (without systemic symptoms) or Complicated (systemic symptoms)? @ -Uncomplicated Side effects of treatment? @ -No Exacerbation, Progression, or Severe Exacerbation? @ -No Poses a threat to life or bodily function? How? (Chest pain, USA, ND, pneumonia, PE, COPD, DKA, ARF, appy, cholecystitis, CVA, Diverticulitis, Homicidal, Suicidal, threat to staff... and all critical care pts) @ -Yes - Lab Data Result diagrams: 02/10/24 17:27 02/10/24 17:27 Lab Results 02/10/24 02/10/24 02/10/24 Range/Units 17:27 17: 17:27 WBC 9.4 (3.8-10.6) k/uL RBC 4.60 (3.80-5.40) m/uL Hgb 14.2 (11.4-16.0) gm/dL Hct 44.1 (34.0-46.0) % MCV 96.0 (80.0-100.0) fL MCH 31.0 (25.0-35.0) pg MCHC 32.3 (31.0-37.0) g/dL RDW 13.3 (11.5-15.5) % Plt Count 243 (150-450) k/uL MPV 9.0 Neutrophils % 62 % Lymphocytes % 27 % Monocytes % 6 % Eosinophils % 2 % Basophils % 0 % Neutrophils # 5.8 (1.3-7.7) k/uL Lymphocytes # 2.6 (1.0-4.8) k/uL Monocytes # 0.5 (0-1.0) k/uL Eosinophils # 0.2 (0-0.7) k/uL Basophils # 0.0 (0-0.2) k/uL PT 11.0 (10.0-12.5) sec INR 1.0 (<1.2) APTT 24.8 (22.0-30.0) sec Sodium 130 L (137-145) mmol/L Potassium 5.6 H (3.5-5.1) mmol/L Chloride 94 L (98-107) mmol/L Carbon Dioxide 29 (22-30) mmol/L Anion Gap 7 mmol/L BUN 28 H (7-17) mg/dL Creatinine 1.29 H (0.52-1.04) mg/dL Est GFR (CKD-EPI)AfAm 48 (>60 ml/min/1.73 sqM) Est GFR (CKD-EPI)NonAf 42 (>60 ml/min/1.73 sqM) Glucose 89 (74-99) mg/dL Plasma Lactic Acid Carlton (0.7-2.0) mmol/L Calcium 10.1 (8.4-10.2) mg/dL Magnesium 1.9 (1.6-2.3) mg/dL Total Bilirubin 0.4 (0.2-1.3) mg/dL AST 31 (14-36) U/L ALT 25 (4-34) U/L Alkaline Phosphatase 59 (38-126) U/L Troponin I (0.000-0.034) ng/mL Total Protein 8.6 H (6.3-8.2) g/dL Albumin 5.0 (3.5-5.0) g/dL TSH 5.280 H (0.465-4.680) mIU/L Free T4 0.95 (0.78-2.19) ng/dL 02/10/24 02/10/24 Range/Units 17:27 17:27 WBC (3.8-10.6) k/uL RBC (3.80-5.40) m/uL Hgb (11.4-16.0) gm/dL Hct (34.0-46.0) % MCV (80.0-100.0) fL MCH (25.0-35.0) pg MCHC (31.0-37.0) g/dL RDW (11.5-15.5) % Plt Count (150-450) k/uL MPV Neutrophils % % Lymphocytes % % Monocytes % % Eosinophils % % Basophils % % Neutrophils # (1.3-7.7) k/uL Lymphocytes # (1.0-4.8) k/uL Monocytes # (0-1.0) k/uL Eosinophils # (0-0.7) k/uL Basophils # (0-0.2) k/uL PT (10.0-12.5) sec INR (<1.2) APTT (22.0-30.0) sec Sodium (137-145) mmol/L Potassium (3.5-5.1) mmol/L Chloride (98-107) mmol/L Carbon Dioxide (22-30) mmol/L Anion Gap mmol/L BUN (7-17) mg/dL Creatinine (0.52-1.04) mg/dL Est GFR (CKD-EPI)AfAm (>60 ml/min/1.73 sqM) Est GFR (CKD-EPI)NonAf (>60 ml/min/1.73 sqM) Glucose (74-99) mg/dL Plasma Lactic Acid Carl[place] 1.1 (0.7-2.0) mmol/L Calcium (8.4-10.2) mg/dL Magnesium (1.6-2.3) mg/dL Total Bilirubin (0.2-1.3) mg/dL AST (14-36) U/L ALT (4-34) U/L Alkaline Phosphatase (38-126) U/L Troponin I <0.012 (0.000-0.034) ng/mL Total Protein (6.3-8.2) g/dL Albumin (3.5-5.0) g/dL TSH (0.465-4.680) mIU/L Free T4 (0.78-2.19) ng/dL Disposition Clinical Impression: Bradycardia, Hyperkalemia Disposition: ADMITTED IP TO THIS HOSP Referrals: Maylin Yu MD [Primary Care Provider] - 1-2 days Time of Disposition: 20:05
[2024-02-10 17:44] LABS: ALT 25 U/L (4-34); AST 31 U/L (14-36); African American GFR (CKD) 48 (>60 ml/min/1.73 sqM); Alkaline Phosphatase 59 U/L (38-126); Anion Gap 7 mmol/L; Blood Urea Nitrogen 28 mg/dL (7-17); Calcium 10.1 mg/dL (8.4-10.2); Carbon Dioxide 29 mmol/L (22-30); Chloride 94 mmol/L (98-107); Glucose 89 mg/dL (74-99); Magnesium 1.9 mg/dL (1.6-2.3); Non-African American GFR(CKD) 42 (>60 ml/min/1.73 sqM); Potassium 5.6 mmol/L (3.5-5.1); Sodium 130 mmol/L (137-145); Total Bilirubin 0.4 mg/dL (0.2-1.3); Total Protein 8.6 g/dL (6.3-8.2)
[2024-02-10 17:50] LABS: Basophils % (A) 0 %; Eosinophils # (A) 0.2 k/uL (0-0.7); Eosinophils % (A) 2 %; HCT 44.1 % (34.0-46.0); HGB 14.2 gm/dL (11.4-16.0); Lymphocytes # (A) 2.6 k/uL (1.0-4.8); Lymphocytes % (A) 27 %; MCHC 32.3 g/dL (31.0-37.0); Monocytes # (A) 0.5 k/uL (0-1.0); Monocytes % (A) 6 %; Neutrophils # (A) 5.8 k/uL (1.3-7.7); Neutrophils % (A) 62 %; Platelet Count 243 k/uL (150-450); RDW 13.3 % (11.5-15.5); WBC 9.4 k/uL (3.8-10.6)
[2024-02-10 18:02] LABS: Partial Thromboplastin Time 24.8 sec (22.0-30.0)
[2024-02-10] MEDS: HYDROcodone/APAP 5-325MG 1 EACH TAB PO STA (18:02)
--- NOTE | 2024-02-10 18:26 | XR ---
EXAMINATION TYPE: XR chest 2V DATE OF EXAM: 02/10/2024 6:03 PM COMPARISON: Prior chest radiograph, most recently dated 01/07/2023. CLINICAL INDICATION: Female, 73 years old with history of bradycardia; [facility] TECHNIQUE: XR chest 2V Frontal and lateral views of the chest. FINDINGS: Cardiac silhouette and bony vasculature appear prominent, possibly in part related to low lung volume s/technique factors. No acute focal consolidation. No pleural effusion. No pneumothorax. No acute osseous abnormality. Partially visualized cervical spinal fusion hardware. IMPRESSION: No acute cardiopulmonary disease/process. [facility], , 02/10/2024 6:23 PM
[2024-02-10] MEDS: DOPamine DRIP 800 MG in DEXTROSE/WATER 1 250ML.BAG IV ONE (18:42)
[2024-02-10 19:33] LABS: T4, Free (Free Thyroxine) 0.95 ng/dL (0.78-2.19)
[2024-02-10] MEDS ORDERED: NALOXONE 0.4 MG/ML 1 ML VIAL IV PRN (19:59)
--- NOTE | 2024-02-10 20:06 | P.CRDCN ---
History of Present Illness History of present illness: This is Dr. García dictating a consult on this patient The patient was interviewed and examined IMPRESSION / ASSESSMENT: Bradycardia with junctional rhythm, mildly elevated potassium, mildly elevated BUN/creatinine and a mildly elevated TSH Symptomatic bradycardia, twelve-lead EKG shows a junctional rhythm in the 30s Patient was on low-dose metoprolol which has been discontinued Hypertension Dyslipidemia PLAN: Stop oral potassium Continue simvastatin Increase the dose of levothyroxine to 75 mcg p.o. daily IV dopamine low-dose Wait 48 hours and if after that, upon stopping dopamine sheath remains bradycardic then she will need permanent pacing/conduction system pacing/BiV pacing Tentatively I will plan for Friday morning unless she responds and her heart rate normalizes Avoid EKG patches over the left pectoral area, daily Hibiclens bath HPI Called by Dr. Kim who is sending a patient from the office to the ER for low heart rate. This is a 73-year-old female who has been complaining of mild shortness of breath on exertion for the last several days. She did take a fall recently and hurt her hip She denies any chest pain no stroke syncopal spell She looks comfortable at this time. Her first twelve-lead EKG showed a junctional rhythm at 36 beats a minute narrow QRS Potassium is 5.6 sodium 130 BUN 28 and creatinine 1.29 TSH was 5.3 liver function tests are normal white count normal ROS: No fever chills or rigors, no cough, phlegm or expectoration, no nausea, vomiting or diarrhea, no hematuria, dysuria, no musculoskeletal complaints, no strokes or seizures, no skin lesions. EXAMINATION: Pulse rate in the 30s upon admission blood pressure 115/64 mmHg Afebrile Breath sounds are clear no rhonchi no crackles Heart sounds are soft No JVD REVIEW OF LABS, ECG & MEDICAL DATA TSH 5.3 Potassium 5.6 BUN/creatinine mildly elevated Home medications include oral potassium Zocor levothyroxine 50 mcg p.o. daily aspirin and Toprol XL Past Medical History Past Medical History: COPD, GERD/Reflux, Hyperlipidemia, Hypertension, Memory Impairment, Osteoarthritis (OA), Thyroid Disorder Additional Past Medical History / Comment(s): urinary incontinence, crushed tailbone, herniated discs History of Any Multi-Drug Resistant Organisms: None Reported Past Surgical History: Appendectomy, Section, Heart Catheterization Additional Past Surgical History / Comment(s): NECK FUSION, colonoscopy Past Anesthesia/Blood Transfusion Reactions: No Reported Reaction, Motion Sickness Past Psychological History: Anxiety, Depression Smoking Status: Former smoker Past Alcohol Use History: Rare Past Drug Use History: None Reported - Past Family History Mother Family Medical History: Cancer Father Family Medical History: Cancer Additional Family Medical History / Comment(s): PROSTATE Brother(s) Family Medical History: Cancer Additional Family Medical History / Comment(s): ESOPHAGUS CANCER Sister(s) Family Medical History: Cancer Additional Family Medical History / Comment(s): BREAST Medications and Allergies Home Medications Medication Instructions Recorded Confirmed Type Levothyroxine Sodium [Synthroid] 50 mcg PO DAILY 08/29/15 02/10/24 History Simvastatin [Zocor] 40 mg PO HS 08/29/15 02/10/24 History oxyBUTYnin chloride [Ditropan] 5 mg PO DAILY 08/29/15 02/10/24 History Acetaminophen [Tylenol Arthritis] 650 mg PO BID 10/24/15 02/10/24 History Aspirin EC [Ecotrin Low Dose] 81 mg PO DAILY 10/24/15 02/10/24 History Donepezil HCl [Aricept] 10 mg PO HS 10/17/21 02/10/24 History Omeprazole 20 mg PO DAILY 10/17/21 02/10/24 History buPROPion HCL [buPROPion HCL SR] 150 mg PO Q12HR 10/17/21 02/10/24 History Albuterol Inhaler [Ventolin Hfa 2 puff INHALATION RT-Q6H PRN 02/10/24 02/10/24 History Inhaler] Ascorbic Acid [Vitamin C] 1,000 mg PO DAILY 02/10/24 02/10/24 History Cholecalciferol [Vitamin D3 (25 50 mcg PO DAILY 02/10/24 02/10/24 History Mcg = 1000 Iu)] Cyanocobalamin (Vitamin B-12) 1,000 mcg PO DAILY 02/10/24 02/10/24 History [Vitamin B-12] FLUoxetine HCL 40 mg PO DAILY 02/10/24 02/10/24 History Ferrous Sulfate [Feosol] 325 mg PO BID 02/10/24 02/10/24 History Furosemide [Lasix] 40 mg PO DAILY 02/10/24 02/10/24 History HYDROcodone/APAP 10-325MG [[place] 1 tab PO BID PRN 02/10/24 02/10/24 History 10-325] Memantine [Namenda] 5 mg PO BID 02/10/24 02/10/24 History Multivitamins, Thera [Multivitamin 1 tab PO DAILY 02/10/24 02/10/24 History (formulary)] Naloxone HCl [Narcan] 4 mg NASAL ONCE PRN 02/10/24 02/10/24 History Potassium Chloride [Klor-Con M10] 10 meq PO DAILY 02/10/24 02/10/24 History Pregabalin [Lyrica] 200 mg PO TID 02/10/24 02/10/24 History Allergies Allergy/AdvReac Type Severity Reaction Status Date / Time Penicillins Allergy Rash/Hives Verified 02/10/24 18:23 venom-honey bee Allergy Swelling Verified 02/10/24 18:23 [bee venom (honey bee)] Physical Exam Vitals: Vital Signs Temp Pulse Resp BP Pulse Ox 02/10/24 19:25 52 L 19 123/91 95 02/10/24 18:34 32 L 14 139/72 99 02/10/24 18:01 36 L 14 129/60 98 02/10/24 17:52 97.7 F 37 L 14 119/60 97 02/10/24 16:54 37 L 16 115/64 96 02/10/24 16:34 97.6 F 39 L 18 121/67 96 Intake and Output 02/10/24 02/10/24 02/10/24 06:59 14:59 22:59 Other: Weight 89.811 kg Results 02/10/24 17:27 02/10/24 17:27 Cardiac Enzymes 02/10/24 02/10/24 Range/Units 17:27 17:27 AST 31 (14-36) U/L Troponin I <0.012 (0.000-0.034) ng/mL Coagulation 02/10/24 Range/Units 17:27 PT 11.0 (10.0-12.5) sec APTT 24.8 (22.0-30.0) sec CBC 02/10/24 Range/Units 17:27 WBC 9.4 (3.8-10.6) k/uL RBC 4.60 (3.80-5.40) m/uL Hgb 14.2 (11.4-16.0) gm/dL Hct 44.1 (34.0-46.0) % Plt Count 243 (150-450) k/uL Comprehensive Metabolic Panel 02/10/24 Range/Units 17:27 Sodium 130 L (137-145) mmol/L Potassium 5.6 H (3.5-5.1) mmol/L Chloride 94 L (98-107) mmol/L Carbon Dioxide 29 (22-30) mmol/L BUN 28 H (7-17) mg/dL Creatinine 1.29 H (0.52-1.04) mg/dL Glucose 89 (74-99) mg/dL Calcium 10.1 (8.4-10.2) mg/dL AST 31 (14-36) U/L ALT 25 (4-34) U/L Alkaline Phosphatase 59 (38-126) U/L Total Protein 8.6 H (6.3-8.2) g/dL Albumin 5.0 (3.5-5.0) g/dL Current Medications Generic Name Dose Route Start Last Admin Trade Name Freq PRN Reason Stop Dose Admin Acetaminophen 650 mg 02/10/24 19:59 Acetaminophen Tab 325 Mg Tab PO Q6HR PRN Mild Pain or Fever > 100.5 Dopamine HCl/Dextrose 800 mg/ 250 mls @ 5.052 mls/hr 02/10/24 17:28 02/10/24 18:42 IV Solution IV 02/11/24 17:27 3 mcg/kg/min .Q24H ONE 5.052 mls/hr Administration Protocol 3 MCG/KG/MIN Dextrose/Water 500 ml/ IV 500 mls @ 50 mls/hr 02/10/24 19:15 Solution IV 02/11/24 00:14 .Q10H JENNIFER Sodium Chloride 1,000 mls @ 50 mls/hr 02/12/24 20:15 Saline 0.9% IV .Q20H JENNIFER Sodium Chloride 1,000 mls @ 50 mls/hr 02/12/24 20:15 Saline 0.9% IV .Q20H JENNIFER Cefazolin Sodium 2 gm/ Sodium 50 mls @ 100 mls/hr 02/13/24 07:00 Chloride IVPB ONCE PRN Pre-Op Naloxone HCl 0.2 mg 02/10/24 19:59 Naloxone 0.4 Mg/Ml 1 Ml Vial IV Q2M PRN Opioid Reversal Intake and Output 02/10/24 02/10/24 02/10/24 06:59 14:59 22:59 Other: Weight 89.811 kg Patient Weight 02/11/24 06:59 Weight 89.811 kg 02/10/24 17:27 02/10/24 17:27
[2024-02-10] MEDS: DEXTROSE 50% SYRINGE 50 ML IVP ONE (20:45)
[2024-02-10] MEDS: INSULIN REGULAR 100 UNIT/ML VIAL (IV) IV ONE (20:47)
[2024-02-10] MEDS: CALCIUM GLUCONATE IN NACL 1 GM in SALINE 1 100ML.BAG IVPB ONE (20:48)
[2024-02-10] MEDS: SODIUM ZIRCONIUM CYCLOSILICATE 10 GM PACKET PO ONE (20:48)
[2024-02-10] MEDS: DEXTROSE 10% IN WATER 500 ML in EMPTY BAG 1 BAG IV SCH (20:49)
[2024-02-10 21:05] LABS: Glucose,Whole Blood 125 mg/dL (70-110)
[2024-02-10 21:35] LABS: African American GFR (CKD) 55 (>60 ml/min/1.73 sqM); Anion Gap 8 mmol/L; Blood Urea Nitrogen 27 mg/dL (7-17); Calcium 9.9 mg/dL (8.4-10.2); Carbon Dioxide 29 mmol/L (22-30); Chloride 94 mmol/L (98-107); Glucose 127 mg/dL (74-99); Non-African American GFR(CKD) 48 (>60 ml/min/1.73 sqM); Potassium 4.8 mmol/L (3.5-5.1); Sodium 131 mmol/L (137-145)
[2024-02-11] MEDS: ACETAMINOPHEN TAB 325 MG TAB PO PRN (06:11)
[2024-02-11] MEDS ORDERED: ALBUTEROL NEBULIZED 2.5 MG/3 ML INHALATION PRN (09:29)
--- NOTE | 2024-02-11 11:23 | P.PN ---
Subjective HISTORY OF PRESENT ILLNESS: This is a 73-year-old female who was sent to the hospital by her medical i d sales, Dr. Garrett, for bradycardia. Patient was on low-dose metoprolol which has since been discontinued. She was started on IV dopamine which is infusing at 3 mcg/kg/min. Telemetry reveals heart rate in the 50s. Patient currently denies chest pain or pressure. She denies shortness of breath. PHYSICAL EXAM: VITAL SIGNS: Reviewed. GENERAL: Well-developed in no acute distress. NECK: Supple. No JVD or thyromegaly LUNGS: Respirations even and unlabored. Lungs essentially clear to auscultation bilaterally. HEART: Bradycardic regular rate and rhythm. S1 and S2 heard. EXTREMITIES: Normal range of motion. No clubbing or cyanosis. Peripheral pulses intact. No lower extremity edema ASSESSMENT: Bradycardia, EKG revealing junctional rhythm Hyperkalemia, resolved Mildly elevated TSH, Synthroid dose adjusted Hypertension Hyperlipidemia PLAN: Continue IV dopamine Avoid any AV madelin blocking agents Obtain 2D echo to assess cardiac structure and function Continue telemetry monitoring Increase activity as tolerated to assess response in heartrate Patient tentatively boarded for pacemaker implantation on 02/13/[address] García Further recommendations pending patient course Nurse practitioner note has been reviewed by physician. Signing provider agrees with the documented findings, assessment, and plan of care documented by [employer] as a scribe. Objective - Vital Signs Vital signs: Vital Signs Temp 97.4 F L 02/11/24 07:47 Pulse 55 L 02/11/24 10:00 Resp 11 L 02/11/24 10:00 BP 140/76 02/11/24 10:00 Pulse Ox 93 L 02/11/24 10:00 FiO2 Intake & Output 02/10/24 02/11/24 02/11/24 18:59 06:59 18:59 Weight 89.811 kg - Labs CBC & Chem 7: 02/10/24 17:27 02/10/24 22:58 Labs: Abnormal Lab Results - Last 24 Hours (Table) 02/10/24 02/10/24 02/10/24 Range/Units 17:27 20:51 21:03 Sodium 130 L 131 L (137-145) mmol/L Potassium 5.6 H (3.5-5.1) mmol/L Chloride 94 L 94 L (98-107) mmol/L BUN 28 H 27 H (7-17) mg/dL Creatinine 1.29 H 1.15 H (0.52-1.04) mg/dL Glucose 127 H (74-99) mg/dL POC Glucose (mg/dL) 125 H (70-110) mg/dL Total Protein 8.6 H (6.3-8.2) g/dL TSH 5.280 H (0.465-4.680) mIU/L
--- NOTE | 2024-02-11 15:01 | CA ---
Transthoracic Echo Report Name: Cindy Naylor Age: 73 Gender: F : 1950 Exam Date: 02/11/2024 13:09 Exam Location: [place] [facility] Ht (in): 62 Wt (lb): 198 Ordering Physician: Beverly Roe Attending/Referring Phys: [id number], Bhupinder Casting Operator Yulissa Asencio RDCS Procedure CPT: Indications: LV function, bradycardia Cardiac Hx: Technical Quality: Fair Contrast 1: Total Dose (mL): Contrast 2: Total Dose (mL): MEASUREMENTS (Male / Female) Normal Values 2D ECHO LV Diastolic Volume MOD BP 110.9 cm??? 67 - 155 / 56 - 104 cm??? LV Systolic Volume MOD BP 43.8 cm??? 22 - 58 / 19 - 49 cm??? LV Ejection Fraction MOD BP 60.5 % >= 55 % LV Cardiac Index MOD BP 1722.5 cm???/min???m??? LV Diastolic Volume MOD 4C 109.4 cm??? LV Systolic Volume MOD 4C 41.2 cm??? LV Ejection Fraction MOD 4C 62.3 % LV Cardiac Index MOD 4C 1749.8 cm???/min???m??? LV Diastolic Length 4C 7.7 cm LV Systolic Length 4C 6.3 cm LV Diastolic Volume MOD 2C 109.9 cm??? LV Systolic Volume MOD 2C 46.7 cm??? LV Ejection Fraction MOD 2C 57.5 % LV Cardiac Index MOD 2C 1620.9 cm???/min???m??? LV Diastolic Length 2C 7.9 cm LV Systolic Length 2C 6.3 cm LA Volume 62.6 cm??? 18 - 58 / 22 - 52 cm??? LA Volume Index 30.9 cm???/m??? 16 - 28 cm???/m??? DOPPLER AV Peak Velocity 118.0 cm/s AV Peak Gradient 5.6 mmHg AV Mean Velocity 78.9 cm/s AV Mean Gradient 2.8 mmHg AV Velocity Time Integral 26.9 cm LVOT Peak Velocity 113.5 cm/s LVOT Peak Gradient 5.2 mmHg LVOT Velocity Time Integral 24.9 cm MV Area PHT 2.9 cm??? Mitral E Point Velocity 59.7 cm/s Mitral A Point Velocity 58.3 cm/s Mitral E to A Ratio 1.0 MV Deceleration Time 260.3 ms FINDINGS Left Ventricle Left ventricular ejection fraction is estimated at 55-60 %. Mildly increased left ventricular diastolic volume. Left ventricular wall thickness normal. No obvious regional wall motion abnormalities. Right Ventricle Normal right ventricular size and function. Unable to estimate the right ventricular systolic pressure. Right Atrium Normal right atrial size. Left Atrium Mildly increased left atrial volume. Mitral Valve Structurally normal mitral valve. No evidence for mitral valve prolapse. No mitral stenosis. Mild mitral regurgitation.mitral annular calcification. Aortic Valve Aortic valve not well visualized. No aortic valve stenosis or regurgitation. Tricuspid Valve Structurally normal tricuspid valve. No tricuspid stenosis. No tricuspid regurgitation. Pulmonic Valve Pulmonic valve not well visualized. Pericardium No pericardial effusion. Aorta Aortic root and proximal ascending aorta not well visualized. CONCLUSIONS Technically difficult study. Normal left ventricular size and systolic function Mild mitral regurgitation Previewed by: Dr. Yani Jones MD (Electronically Signed) Final Date: 11 February 2024 15:00
--- NOTE | 2024-02-11 15:42 | P.HPIM ---
History of Present Illness H&P Date: 02/11/24 Chief Complaint: Palpitations Patient is a 73 year old female with past medical history of COPD, GERD, hyperlipidemia, hypertension, hypothyroidism who was sent to the ED by her hoisting engine operator for evaluation of bradycardia. She mentions first noticing the bradycardia when she was at the hospital recently. Upon being discharged she went to her primary care provider. At her primary care provider's office her heart rate was 39-41. Her PCP advised her to see a hoisting engine operator. The next day the patient went to see her hoisting engine operator who she regularly follows up with. Her heart rate was still low in the 30s which is when her hoisting engine operator advised her to come into the ER. The patient also mentions experiencing palpitations intermittently along with chest pain. The chest pain is a 2/10 severity without any radiation. She also admits to experiencing dizziness due to which she had a fall a week ago and had presented to the ED for evaluation. She was discharged home from the ED as there was no fracture. She still complains of the pain on on her left hip from the fall. She denies any fever, headache, shortness of breath, coughing, abdominal pain, nausea, vomiting, dysuria, hematuria, hematochezia, melena. ED documentation reviewed. In the ED patient was treated with dextrose, calcium gluconate, [place], insulin, Lokelma. Vitals on admission T 97.6 F, [place] 39 bpm, RR 18, BP 121/67, O2 sat 96% on room air EKG bradycardia with junctional rhythm, rate 36 bpm, QTc 273 ms CXR shows no acute cardiopulmonary disease/process Labs on admission show sodium 130, potassium 5.6, BUN 28, creatinine 1.29, TSH 5.080, free T40.95, troponin I <0.012, lactic acid 1.1, magnesium 1.9, WBC 9.4, hemoglobin 14.2, platelet 243, PT 11, INR 1 Review of systems: Pertinent positives and negatives as discussed in HPI, a complete review of systems was performed and all other systems are negative. PMH: COPD, GERD, hyperlipidemia, hypertension, hypothyroidism, osteoarthritis PSH:appendectomy, section, heart catheterization FMH: Prostate cancer Social history: Tobacco: Former smoker, quit 2 months ago Alcohol: Denies use Recreational drugs: Denies use Travel: No recent travel history Sick contacts: None Physical examination: Vital signs reviewed General: nontoxic, no distress, appears at stated age Derm: warm, dry, intact Head: atraumatic, normocephalic, symmetric Eyes: EOMI, anicteric sclera Mouth: no lip lesion, mucus membranes moist Cardiovascular: S1 S2 reg, no murmur Lungs: CTA bilateral, no rhonchi, no rales, no accessory muscle use Abdominal: soft, non-tender to palpation Extremities: No cyanosis, clubbing, or pedal edema. Neuro: Alert, Oriented, Gross neurological examination did not reveal any focal deficits. Psych: well appearing, appropriate affect Assessment/Plan: Patient is a 73-year-old female with past medical history of COPD, GERD, hyperlipidemia, hypertension who was sent to the ED by her hoisting engine operator for the evaluation of bradycardia. She has been admitted with a diagnosis of irineo ycardia with junctional rhythm and is being treated with IV dopamine. On Friday if she remains bradycardic upon stopping dopamine she will need permanent pacing/conduction system pacing/BiV pacing. Active: #. Bradycardia with junctional rhythm Continue IV dopamine 3 mcg/kg/min On Friday if she remains bradycardic upon stopping dopamine she will need permanent pacing/conduction system pacing/BiV pacing Obtain echocardiogram Continue telemetry monitoring Cardiology is following #. Hypothyroidism TSH 5.080, free T4 0.95 Increase levothyroxine 75 mcg p.o. daily Chronic: #. Hyperlipidemia Continue simvastatin 40 mg p.o. at bedtime #. COPD, not in acute exacerbation Continue albuterol 2 puffs every 6 hours as needed #. Anxiety/depression Continue bupropion 150 mg p.o. every 12 hours, fluoxetine 40 mg p.o. daily #. Cognitive decline Continue donepezil 10 mg p.o. at bedtime, memantine 5 mg p.o. twice daily #. Overactive bladder Continue oxybutynin 5 mg p.o. daily #. GERD Pantoprazole 40 mg PO daily #. Neuropathy Continue pregabalin 200 mg p.o. 3 times daily Resolved: #. Hyperkalemia Insulin, calcium gluconate, Lokel[place] administered in the ED F: 0.9 normal saline at 75 mL per hr E: Replete as required N: Heart healthy diet, n.p.o. after midnight A: GI prophylaxis: Pantoprazole 40 mg PO daily The patient is admitted with an anticipated more than 2 midnight stay for evaluation of bradycardia CODE STATUS: Full Code Discussed with: Patient Anticipated discharge place: Home Past Medical History Past Medical History: COPD, GERD/Reflux, Hyperlipidemia, Hypertension, Memory Impairment, Osteoarthritis (OA), Thyroid Disorder Additional Past Medical History / Comment(s): urinary incontinence, crushed tailbone, herniated discs History of Any Multi-Drug Resistant Organisms: None Reported Past Surgical History: Appendectomy, Section, Heart Catheterization Additional Past Surgical History / Comment(s): NECK FUSION, colonoscopy Past Anesthesia/Blood Transfusion Reactions: No Reported Reaction, Motion Sickness Past Psychological History: Anxiety, Depression Smoking Status: Former smoker Past Alcohol Use History: Rare Past Drug Use History: None Reported - Past Family History Mother Family Medical History: Cancer Father Family Medical History: Cancer Additional Family Medical History / Comment(s): PROSTATE Brother(s) Family Medical History: Cancer Additional Family Medical History / Comment(s): ESOPHAGUS CANCER Sister(s) Family Medical History: Cancer Additional Family Medical History / Comment(s): BREAST Medications and Allergies Home Medications Medication Instructions Recorded Confirmed Type Levothyroxine Sodium [Synthroid] 50 mcg PO DAILY 08/29/15 02/10/24 History Simvastatin [Zocor] 40 mg PO HS 08/29/15 02/10/24 History oxyBUTYnin chloride [Ditropan] 5 mg PO DAILY 08/29/15 02/10/24 History Acetaminophen [Tylenol Arthritis] 650 mg PO BID 10/24/15 02/10/24 History Aspirin EC [Ecotrin Low Dose] 81 mg PO DAILY 10/24/15 02/10/24 History Donepezil HCl [Aricept] 10 mg PO HS 10/17/21 02/10/24 History Omeprazole 20 mg PO DAILY 10/17/21 02/10/24 History buPROPion HCL [buPROPion HCL SR] 150 mg PO Q12HR 10/17/21 02/10/24 History Albuterol Inhaler [Ventolin Hfa 2 puff INHALATION RT-Q6H PRN 02/10/24 02/10/24 History Inhaler] Ascorbic Acid [Vitamin C] 1,000 mg PO DAILY 02/10/24 02/10/24 History Cholecalciferol [Vitamin D3 (25 50 mcg PO DAILY 02/10/24 02/10/24 History Mcg = 1000 Iu)] Cyanocobalamin (Vitamin B-12) 1,000 mcg PO DAILY 02/10/24 02/10/24 History [Vitamin B-12] FLUoxetine HCL 40 mg PO DAILY 02/10/24 02/10/24 History Ferrous Sulfate [Feosol] 325 mg PO BID 02/10/24 02/10/24 History Furosemide [Lasix] 40 mg PO DAILY 02/10/24 02/10/24 History HYDROcodone/APAP 10-325MG [[place] 1 tab PO BID PRN 02/10/24 02/10/24 History 10-325] Memantine [Namenda] 5 mg PO BID 02/10/24 02/10/24 History Multivitamins, Thera [Multivitamin 1 tab PO DAILY 02/10/24 02/10/24 History (formulary)] Naloxone HCl [Narcan] 4 mg NASAL ONCE PRN 02/10/24 02/10/24 History Potassium Chloride [Klor-Con M10] 10 meq PO DAILY 02/10/24 02/10/24 History Pregabalin [Lyrica] 200 mg PO TID 02/10/24 02/10/24 History Allergies Allergy/AdvReac Type Severity Reaction Status Date / Time Penicillins Allergy Rash/Hives Verified 02/10/24 18:23 venom-honey bee Allergy Swelling Verified 02/10/24 18:23 [bee venom (honey bee)] Physical Exam Vitals: Vital Signs Temp Pulse Resp BP Pulse Ox 02/11/24 07:47 97.4 F L 48 L 18 139/66 96 02/11/24 06:45 48 L 16 133/66 98 02/11/24 05:00 60 16 139/63 96 02/11/24 03:58 48 L 15 121/60 94 L 02/11/24 02:48 50 L 16 125/59 95 02/11/24 00:58 51 L 15 124/60 95 02/10/24 23:06 52 L 15 127/61 95 02/10/24 21:29 53 L 18 149/59 95 02/10/24 19:25 52 L 19 123/91 95 02/10/24 18:34 32 L 14 139/72 99 02/10/24 18:01 36 L 14 129/60 98 02/10/24 17:52 97.7 F 37 L 14 119/60 97 02/10/24 16:54 37 L 16 115/64 96 02/10/24 16:34 97.6 F 39 L 18 121/67 96 Intake and Output 02/10/24 02/11/24 02/11/24 22:59 06:59 14:59 Other: Weight 89.811 kg Results CBC & Chem 7: 02/10/24 17:27 02/10/24 22:58 Labs: Abnormal Lab Results - Last 24 Hours (Table) 02/10/24 02/10/24 02/10/24 Range/Units 17:27 20:51 21:03 Sodium 130 L 131 L (137-145) mmol/L Potassium 5.6 H (3.5-5.1) mmol/L Chloride 94 L 94 L (98-107) mmol/L BUN 28 H 27 H (7-17) mg/dL Creatinine 1.29 H 1.15 H (0.52-1.04) mg/dL Glucose 127 H (74-99) mg/dL POC Glucose (mg/dL) 125 H (70-110) mg/dL Total Protein 8.6 H (6.3-8.2) g/dL TSH 5.280 H (0.465-4.680) mIU/L
[2024-02-11] MEDS: PREGABALIN 100 MG CAP PO SCH (18:18)
[2024-02-11] MEDS: ATORVASTATIN 20 MG TAB PO SCH (21:52)
[2024-02-11] MEDS: DONEPEZIL 10 MG TAB PO SCH (21:52)
[2024-02-11] MEDS: MEMANTINE 5 MG TAB PO SCH (21:52)
[2024-02-11] MEDS: buPROPion SR 150 MG TABLET.ER PO SCH (22:02)
[2024-02-12] MEDS: PANTOPRAZOLE 40 MG TABLET PO SCH (05:55)
[2024-02-12] MEDS: LEVOTHYROXINE 75 MCG TAB PO SCH (05:55)
[2024-02-12] MEDS: FLUoxetine HCL 20 MG CAP PO SCH (08:50)
[2024-02-12] MEDS: oxyBUTYnin chloride 5 MG TAB PO SCH (08:50)
--- NOTE | 2024-02-12 09:20 | P.PN ---
Subjective Progress Note Date: 02/12/24 Principal diagnosis: Hospital course: Patient is a 73 year old female with past medical history of COPD, GERD, hyperlipidemia, hypertension, hypothyroidism who was sent to the ED by her fitness attendant for evaluation of bradycardia. She mentions first noticing the bradycardia when she was at the hospital recently. Upon being discharged she went to her primary care provider. At her primary care provider's office her heart rate was 39-41. Her PCP advised her to see a fitness attendant. The next day the patient went to see her fitness attendant who she regularly follows up with. Her heart rate was still low in the 30s which is when her fitness attendant advised her to come into the ER. The patient also mentions experiencing palpitations intermittently along with chest pain. The chest pain is a 2/10 severity without any radiation. She also admits to experiencing dizziness due to which she had a fall a week ago and had presented to the ED for evaluation. She was discharged home from the ED as there was no fracture. She still complains of the pain on on her left hip from the fall. She denies any fever, headache, shortness of breath, coughing, abdominal pain, nausea, vomiting, dysuria, hematuria, hematochezia, melena. ED documentation reviewed. In the ED patient was treated with dextrose, calcium gluconate, [place], insulin, Lokelma. Vitals on admission T 97.6 F, [place] 39 bpm, RR 18, BP 121/67, O2 sat 96% on room air EKG bradycardia with junctional rhythm, rate 36 bpm, QTc 273 ms CXR shows no acute cardiopulmonary disease/process Labs on admission show sodium 130, potassium 5.6, BUN 28, creatinine 1.29, TSH 5.080, free T40.95, troponin I <0.012, lactic acid 1.1, magnesium 1.9, WBC 9.4, hemoglobin 14.2, platelet 243, PT 11, INR 1 02/12/24: Patient seen and examined at bedside today. No new complaints today. Vitals today show pulse 50 and BP 128/63. Echocardiogram shows EF 55-60% and normal left ventricular size and systolic function with mild MR. Review of systems: Pertinent positives and negatives as discussed in HPI, a complete review of systems was performed and all other systems are negative. Vitals: Signs Reviewed Physical examination: General: nontoxic, no distress, appears at stated age Derm: warm, dry, intact Head: atraumatic, normocephalic, symmetric Eyes: EOMI, anicteric sclera Mouth: no lip lesion, mucus membranes moist Cardiovascular: S1 S2 reg, no murmur Lungs: CTA bilateral, no rhonchi, no rales, no accessory muscle use Abdominal: soft, non-tender to palpation Extremities: No cyanosis, clubbing, or pedal edema. Neuro: Alert, Oriented, Gross neurological examination did not reveal any focal deficits. Psych: well appearing, appropriate affect Assessment/Plan: Patient is a 73-year-old female with past medical history of COPD, GERD, hyperlipidemia, hypertension who was sent to the ED by her fitness attendant for the evaluation of bradycardia. She has been admitted with a diagnosis of bradycardia with junctional rhythm and is being treated with IV dopamine. On Friday if she remains bradycardic upon stopping dopamine she will need permanent pacing/conduction system pacing/BiV pacing. Active: #. Bradycardia with junctional rhythm Echocardiogram 02/11/24 shows EF 55-60% and normal left ventricular size and systolic function with mild MR. On Friday if she remains bradycardic upon stopping dopamine she will need permanent pacing/conduction system pacing/BiV pacing Continue telemetry monitoring Cardiology is following #. Hypothyroidism TSH 5.080, free T4 0.95 Continue levothyroxine 75 mcg p.o. daily Chronic: #. Hyperlipidemia Continue atorvastatin 40 mg p.o. at bedtime #. COPD, not in acute exacerbation Continue albuterol 2 puffs every 6 hours as needed #. Anxiety/depression Continue bupropion 150 mg p.o. every 12 hours, fluoxetine 40 mg p.o. daily #. Cognitive decline Continue donepezil 10 mg p.o. at bedtime, memantine 5 mg p.o. twice daily #. Overactive bladder Continue oxybutynin 5 mg p.o. daily #. GERD Continue Pantoprazole 40 mg PO daily #. Neuropathy Continue pregabalin 200 mg p.o. 3 times daily Resolved: #. Hyperkalemia Insulin, calcium gluconate, Lokelma administered in the ED F: 0.9 normal saline at 75 mL per hr E: Replete as required N: Heart healthy diet, n.p.o. after midnight A: GI prophylaxis: Pantoprazole 40 mg PO daily Objective - Vital Signs Vital signs: Vital Signs Temp 97.9 F 02/11/24 23:00 Pulse 60 02/12/24 04:00 Resp 15 02/12/24 04:00 BP 154/84 02/12/24 04:00 Pulse Ox 96 02/12/24 04:00 FiO2 Intake & Output 02/11/24 02/12/24 02/12/24 18:59 06:59 18:59 Output Total 100 Balance -100 Weight 89.8 kg Output: Urine 100 - Labs CBC & Chem 7: 02/10/24 17:27 02/10/24 22:58
[2024-02-12 09:23] LABS: HCT 44.5 % (34.0-46.0); HGB 14.8 gm/dL (11.4-16.0); MCH 32.2 pg (25.0-35.0); MCHC 33.2 g/dL (31.0-37.0); Mean Platelet Volume 8.9; Platelet Count 206 k/uL (150-450); RBC 4.59 m/uL (3.80-5.40); RDW 13.6 % (11.5-15.5); WBC 7.6 k/uL (3.8-10.6)
[2024-02-12 09:38] LABS: African American GFR (CKD) 64 (>60 ml/min/1.73 sqM); Anion Gap 9 mmol/L; Blood Urea Nitrogen 25 mg/dL (7-17); Calcium 9.6 mg/dL (8.4-10.2); Carbon Dioxide 26 mmol/L (22-30); Chloride 100 mmol/L (98-107); Glucose 100 mg/dL (74-99); Non-African American GFR(CKD) 56 (>60 ml/min/1.73 sqM); Potassium 4.5 mmol/L (3.5-5.1); Sodium 135 mmol/L (137-145)
--- NOTE | 2024-02-12 13:44 | P.PN ---
Subjective HISTORY OF PRESENT ILLNESS: This is a 73-year-old female who was sent to the hospital by her associate programmer analyst, Dr. Garrett, for bradycardia. Patient was on low-dose metoprolol which has since been discontinued. She was started on IV dopamine which is infusing at 3 mcg/kg/min. Telemetry reveals heart rate in the 50s. Patient currently denies chest pain or pressure. She denies shortness of breath. 02/12/2024 Patient examined this morning at the bedside. Patient currently denies chest pain or pressure. She denies shortness of breath. She does report feeling slightly dizzy. Telemetry reveals sinus mechanism with a heart in the 50s. Her dopamine was discontinued yesterday for unknown reason. Patient states she has not been out of bed yet as she has generalized pain and is requesting [place]. Echocardiogram completed revealing ejection fraction 55 to 60%, with mild MR PHYSICAL EXAM: VITAL SIGNS: Reviewed. GENERAL: Well-developed in no acute distress. NECK: Supple. No JVD or thyromegaly LUNGS: Respirations even and unlabored. Lungs essentially clear to auscultation bilaterally. HEART: Bradycardic regular rate and rhythm. S1 and S2 heard. EXTREMITIES: Normal range of motion. No clubbing or cyanosis. Peripheral pulses intact. No lower extremity edema ASSESSMENT: Bradycardia, EKG revealing junctional rhythm Hyperkalemia, resolved Mildly elevated TSH, Synthroid dose adjusted Hypertension Hyperlipidemia PLAN: Dopamine discontinued yesterday Avoid any AV madelin blocking agents Continue telemetry monitoring Increase activity as tolerated to assess response in heart rate NPO at midnight Patient tentatively boarded for pacemaker implantation on 02/13/[address] García Further recommendations pending patient course Nurse practitioner note has been reviewed by physician. Signing provider agrees with the documented findings, assessment, and plan of care documented by INTERNAL GRINDER SET UP OPERATOR as a scribe. Objective - Vital Signs Vital signs: Vital Signs Temp 97.7 F 02/12/24 11:47 Pulse 49 L 02/12/24 11:47 Resp 16 02/12/24 11:47 BP 122/70 02/12/24 11:47 Pulse Ox 96 02/12/24 11:47 FiO2 Intake & Output 02/11/24 02/12/24 02/12/24 18:59 06:59 18:59 Intake Total 138 Output Total 100 300 Balance -100 -162 Weight 89.8 kg Intake: IV 20 Invasive Line 1 10 Invasive Line 2 10 Oral 118 Output: Urine 100 300 Other: Voiding Method External Catheter - Labs CBC & Chem 7: 02/12/24 08:58 02/12/24 08:58 Labs: Abnormal Lab Results - Last 24 Hours (Table) 02/12/24 Range/Units 08:58 Sodium 135 L (137-145) mmol/L BUN 25 H (7-17) mg/dL Glucose 100 H (74-99) mg/dL
[2024-02-12] MEDS: SODIUM CHLORIDE 0.9% 1,000 ML IV SCH ×2 (23:44)
[2024-02-12] MEDS: MELATONIN 3 MG TABLET PO PRN (23:50)
[2024-02-13 06:26] LABS: African American GFR (CKD) 59 (>60 ml/min/1.73 sqM); Anion Gap 5 mmol/L; Blood Urea Nitrogen 27 mg/dL (7-17); Calcium 9.2 mg/dL (8.4-10.2); Carbon Dioxide 27 mmol/L (22-30); Chloride 101 mmol/L (98-107); Glucose 78 mg/dL (74-99); Non-African American GFR(CKD) 51 (>60 ml/min/1.73 sqM); Potassium 4.6 mmol/L (3.5-5.1); Sodium 133 mmol/L (137-145)
[2024-02-13 07:41] LABS: HGB 12.9 gm/dL (11.4-16.0); MCH 31.6 pg (25.0-35.0); MCV 95.9 fL (80.0-100.0); Mean Platelet Volume 9.7; Platelet Count 191 k/uL (150-450); RBC 4.07 m/uL (3.80-5.40); RDW 13.7 % (11.5-15.5); WBC 7.2 k/uL (3.8-10.6)
[2024-02-13] MEDS ORDERED: HYDROmorphone 0.5 MG/0.5 ML SYRINGE IVP PRN (08:38)
[2024-02-13] MEDS: VANCOMYCIN 1,250 MG in SODIUM CHLORIDE 0.9% 250 ML IVPB ONE (09:30)
[2024-02-13] MEDS ORDERED: VANCOMYCIN IV PER PHARMACY 1 EACH MISC MISCELLANE PRN (10:37)
[2024-02-13] MEDS ORDERED: fentaNYL (PF) 50 MCG/ML 2 ML AMP ONE (10:43)
[2024-02-13] MEDS ORDERED: MIDAZOLAM 2 MG/2 ML VIAL ONE (10:43)
[2024-02-13] MEDS ORDERED: PROPOFOL 10 MG/ML 20 ML VIAL IV ONE (10:43)
[2024-02-13] MEDS ORDERED: ACETAMINOPHEN TAB 325 MG TAB PO PRN (11:00)
[2024-02-13] MEDS: LIDOCAINE 1% INJ 10MG/ML (20 ML MDV) SQ ONE (11:16)
--- NOTE | 2024-02-13 12:18 | P.PN ---
Subjective Progress Note Date: 02/13/24 Principal diagnosis: Hospital course: Patient is a 73 year old female with past medical history of COPD, GERD, hyperlipidemia, hypertension, hypothyroidism who was sent to the ED by her global logistics manager for evaluation of bradycardia. She mentions first noticing the bradycardia when she was at the hospital recently. Upon being discharged she went to her primary care provider. At her primary care provider's office her heart rate was 39-41. Her PCP advised her to see a global logistics manager. The next day the patient went to see her global logistics manager who she regularly follows up with. Her heart rate was still low in the 30s which is when her global logistics manager advised her to come into the ER. The patient also mentions experiencing palpitations intermittently along with chest pain. The chest pain is a 2/10 severity without any radiation. She also admits to experiencing dizziness due to which she had a fall a week ago and had presented to the ED for evaluation. She was discharged home from the ED as there was no fracture. She still complains of the pain on on her left hip from the fall. She denies any fever, headache, shortness of breath, coughing, abdominal pain, nausea, vomiting, dysuria, hematuria, hematochezia, melena. ED documentation reviewed. In the ED patient was treated with dextrose, calcium gluconate, [place], insulin, Lokelma. Vitals on admission T 97.6 F, [place] 39 bpm, RR 18, BP 121/67, O2 sat 96% on room air EKG bradycardia with junctional rhythm, rate 36 bpm, QTc 273 ms CXR shows no acute cardiopulmonary disease/process Labs on admission show sodium 130, potassium 5.6, BUN 28, creatinine 1.29, TSH 5.080, free T40.95, troponin I <0.012, lactic acid 1.1, magnesium 1.9, WBC 9.4, hemoglobin 14.2, platelet 243, PT 11, INR 1 02/12/24: Patient seen and examined at bedside today. No new complaints today. Vitals today show pulse 50 and BP 128/63. Echocardiogram shows EF 55-60% and normal left ventricular size and systolic function with mild MR. 02/13/24: Patient evaluated at bedside. She mentions feeling lightheaded. Denies palpitations. Labs today show WBC 7.2, hemoglobin 12.9, sodium 133, potassium 4.6, BUN 27, creatinine 1.09. She will undergo the Biventricular device implantation today. Review of systems: Pertinent positives and negatives as discussed in HPI, a complete review of systems was performed and all other systems are negative. Vitals: Signs Reviewed Physical examination: General: nontoxic, no distress, appears at stated age Derm: warm, dry, intact Head: atraumatic, normocephalic, symmetric Eyes: EOMI, anicteric sclera Mouth: no lip lesion, mucus membranes moist Cardiovascular: S1 S2 reg, no murmur Lungs: CTA bilateral, no rhonchi, no rales, no accessory muscle use Abdominal: soft, non-tender to palpation Extremities: No cyanosis, clubbing, or pedal edema. Neuro: Alert, Oriented, Gross neurological examination did not reveal any focal deficits. Psych: well appearing, appropriate affect Assessment/Plan: Patient is a 73-year-old female with past medical history of COPD, GERD, hyperlipidemia, hypertension who was sent to the ED by her global logistics manager for the evaluation of bradycardia. She has been admitted with a diagnosis of bradycardia with junctional rhythm and is being treated with IV dopamine. She will undergo Biventricular device implantation today. Active: #. Bradycardia with junctional rhythm Echocardiogram 02/11/24 shows EF 55-60% and normal left ventricular size and systolic function with mild MR. Biventricular device implant today Continue telemetry monitoring Cardiology is following #. Hypothyroidism TSH 5.080, free T4 0.95 Continue levothyroxine 75 mcg p.o. daily Chronic: #. Hyperlipidemia Continue atorvastatin 40 mg p.o. at bedtime #. COPD, not in acute exacerbation Continue albuterol 2 puffs every 6 hours as needed #. Anxiety/depression Continue bupropion 150 mg p.o. every 12 hours, fluoxetine 40 mg p.o. daily #. Cognitive decline Continue donepezil 10 mg p.o. at bedtime, memantine 5 mg p.o. twice daily #. Overactive bladder Continue oxybutynin 5 mg p.o. daily #. GERD Continue Pantoprazole 40 mg PO daily #. Neuropathy Continue pregabalin 200 mg p.o. 3 times daily Resolved: #. Hyperkalemia F: 0.9 normal saline at 75 mL per hr E: Replete as required N: Heart healthy diet, n.p.o. after midnight A: GI prophylaxis: Pantoprazole 40 mg PO daily Objective - Vital Signs Vital signs: Vital Signs Temp 98.2 F 02/12/24 20:40 Pulse 54 L 02/13/24 04:30 Resp 16 02/13/24 04:30 BP 165/70 02/13/24 04:30 Pulse Ox 96 02/13/24 04:30 FiO2 Intake & Output 02/12/24 02/13/24 02/13/24 18:59 06:59 18:59 Intake Total 258 Output Total 775 1 Balance -517 -1 Weight 99.1 kg Intake: IV 20 Invasive Line 1 10 Invasive Line 2 10 Oral 238 Output: Urine 775 Stool 1 Other: Voiding Method External Catheter External Catheter - Labs CBC & Chem 7: 02/13/24 05:41 02/13/24 05:41 Labs: Abnormal Lab Results - Last 24 Hours (Table) 02/12/24 02/13/24 Range/Units 08:58 05:41 Sodium 135 L 133 L (137-145) mmol/L BUN 25 H 27 H (7-17) mg/dL Creatinine 1.09 H (0.52-1.04) mg/dL Glucose 100 H (74-99) mg/dL
--- NOTE | 2024-02-13 13:08 | P.EPPROC ---
- EP Procedure Note Electrophysiology Procedure Note: Diagnosis Junctional rhythm/severe bradycardia, symptomatic, initially treated with intravenous dopamine After dopamine and low-dose beta-blockers were discontinued, heart rates did not increase beyond 50 to 55 bpm in the wakeful state Underlying sick sinus syndrome/chronotropic incompetence despite discontinuation of beta-blockers Hypertension Procedure Dual-chamber pacemaker implantation with conduction system pacing (left bundle pacing) Left upper extremity venogram Details Patient was brought to the EP lab in a fasting state. Written informed consent was obtained prior to the procedure. Conscious sedation provided by STATEMENT SERVICES REPRESENTATIVE. Left upper extremity venogram revealed a patent left axillary and left subclavian venous system IV antibiotics administered. Local anesthesia administered. A 4 cm incision made in the pectoral area. Subfascial pocket made. Venous accesses obtained Venous sheaths placed. Leads placed in the right heart. 2 sets of pacing cables were used; one for backup temporary pacing and the other for assessment of current of injury and signal analysis. A 52 cm atrial pacing lead was first positioned in the RV apex for temporary pacing during mapping and conduction system pacing Thresholds were interrogated and backup high output pacing was provided This atrial lead was then removed from the right ventricle and later positioned in the right atrial appendage as a permanent atrial lead A deflected sheath was prepped. A coronary sinus decapolar catheter was placed within this sheath. The catheter along with the sheath was then passed into the right heart, the catheter was prolapsed across the tricuspid valve, into the right ventricle and then further into the right ventricular outflow tract across the pulmonic valve into the pulmonary artery. This sheath was slid over this decapolar catheter into the RVOT. Thereafter the catheter last sheath assembly was withdrawn from the RVOT along the septum to the mid septal area. The sheath was appropriately to to map the right ventricular aspect of the septum. The decapolar catheter was withdrawn, the sheath flushed again and the screw-in pacing lead placed within the sheath. Further detailed unipolar pace-mapping of the septum was performed and once the appropriate based morphology was obtained on lead V1, the lead was screwed into the septum. The lead was screwed in 4-5 returns at a time while monitoring the current of injury, the pacing impedance changes and the paced QRS morphology. The stimulus to peak of V6 QRS was measured at each step. Once a QR or rSR pattern of paced QRS in lead V1 was obtained, a left bundle signal was sought. Impedance was measured and thres holds were measured. An impedance drop of 100-200 ohms but above 550 ohms was targeted along with an unchanged vector of the current of injury signal. The final positioning was based on the QRS morphology in lead V1 and a short stimulus to peak of the V6 QRS of less than 90 ms. The sheath was withdrawn, stability of the pacing lead deep in the septum was confirmed on CARTY and CYMRO views and the sheath was slipped and an adequate heel was provided for the lead. Unipolar and bipolar electrogram morphology obtained Atrial lead positioned in the right atrial appendage. Sensing, thresholds and impedances measured following positioning and securing the lead in the right atrial appendage Left bundle lead parameters: Unipolar paced QRS with a right bundle branch block morphology, typical with a QRS width of 150-155 ms, stimulus-V6 peak equals 88 ms Threshold 0.5 V at 0.4 ms, pacing impedance 798 ohms and R waves 20 mV Atrial lead parameters P waves 3.9 mV, pacing impedance 532 ohms and pacing threshold 0.75 V at 0.4. High output l test negative Device coater hand BackType dual-chamber pacemaker generator along with a 52 cm atrial lead, model 5076 and 3830-lead for left bundle pacing Dual-chamber pacemaker device connected to the leads and placed in the subfascial pocket along with an antibiotic pouch Patient tolerated the procedure well without acute complications Pacemaker programming: AAIR-DDDR 50-130
[2024-02-13] MEDS: ACETAMINOPHEN IV (For NPO) 1,000 MG in EMPTY BAG 1 BAG IVPB ONE (14:07)
[2024-02-13] MEDS: LOSARTAN 25 MG TAB PO SCH (14:07)
[2024-02-13] MEDS: ceFAZolin 1,000 MG in SODIUM CHLORIDE 0.9% IRRIG BTL 250 ML IRRIGATION ONE (18:25)
[2024-02-13] MEDS: LACTATED RINGERS 1,000 ML IV SCH (18:27)
[2024-02-14 06:44] LABS: HCT 42.7 % (34.0-46.0); HGB 13.5 gm/dL (11.4-16.0); Hypochromasia Slight; MCH 31.5 pg (25.0-35.0); MCHC 31.7 g/dL (31.0-37.0); MCV 99.4 fL (80.0-100.0); Mean Platelet Volume 8.2; Platelet Count 173 k/uL (150-450); RDW 13.3 % (11.5-15.5)
[2024-02-14 07:01] LABS: African American GFR (CKD) 66 (>60 ml/min/1.73 sqM); Anion Gap 7 mmol/L; Blood Urea Nitrogen 22 mg/dL (7-17); Calcium 9.2 mg/dL (8.4-10.2); Carbon Dioxide 26 mmol/L (22-30); Chloride 102 mmol/L (98-107); Glucose 89 mg/dL (74-99); Non-African American GFR(CKD) 57 (>60 ml/min/1.73 sqM); Potassium 4.9 mmol/L (3.5-5.1); Sodium 135 mmol/L (137-145)
--- NOTE | 2024-02-14 07:33 | XR ---
2 view chest HISTORY: Lead placement check COMPARISON: 02/10/2024 TECHNIQUE: PA and lateral views chest obtained. FINDINGS: There has been interval placement of a 2-lead cardiac pacemaker which appears to be in satisfactory p osition. The lungs are clear of consolidative, interstitial or masslike opacity. There is no pleural effusion, pleural thickening or pneumothorax. The heart, pulmonary vasculature, mediastinum and javid are within normal limits. The osseous structures and soft tissues of the thorax are intact. IMPRESSION: Dual-lead cardiac pacemaker lead tips appear to be in satisfactory position. There is no acute cardio pulmonary disease. [facility], , 02/14/2024 7:31 AM
[2024-02-14 09:30] VITALS: RESP 18; TEMP 97.8
--- NOTE | 2024-02-14 11:13 | P.PN ---
Subjective HISTORY OF PRESENT ILLNESS: This is a 73-year-old female who was sent to the hospital by her installers mechanical, Dr. Garrett, for bradycardia. Patient was on low-dose metoprolol which has since been discontinued. She was started on IV dopamine which is infusing at 3 mcg/kg/min. Telemetry reveals heart rate in the 50s. Patient currently denies chest pain or pressure. She denies shortness of breath. 02/12/2024 Patient examined this morning at the bedside. Patient currently denies chest pain or pressure. She denies shortness of breath. She does report feeling slightly dizzy. Telemetry reveals sinus mechanism with a heart in the 50s. Her dopamine was discontinued yesterday for unknown reason. Patient states she has not been out of bed yet as she has generalized pain and is requesting Decker. Echocardiogram completed revealing ejection fraction 55 to 60%, with mild MR 02/14/2024 Patient is status post dual-chamber pacemaker implantation with Dr. García. Postop day #1. Patient examined this morning the bedside. Patient currently denies chest pain or pressure. She denies shortness of breath. Device has been interrogated and reviewed by Dr. García with appropriate function. Chest x-ray completed revealing appropriate lead placement with no evidence of pneumothorax. PHYSICAL EXAM: VITAL SIGNS: Reviewed. GENERAL: Well-developed in no acute distress. NECK: Supple. No JVD or thyromegaly LUNGS: Respirations even and unlabored. Lungs essentially clear to auscultation bilaterally. HEART: Bradycardic regular rate and rhythm. S1 and S2 heard. EXTREMITIES: Normal range of motion. No clubbing or cyanosis. Peripheral pu lses intact. No lower extremity edema ASSESSMENT: Bradycardia, EKG revealing junctional rhythm, status post dual-chamber pacemaker implantation Hyperkalemia, resolved Mildly elevated TSH, Synthroid dose adjusted Hypertension Hyperlipidemia PLAN: Continue current cardiac medications Patient is stable for discharge home today from a cardiac standpoint She is to follow-up postdischarge with Dr. Garrett Nurse practitioner note has been reviewed by physician. Signing provider agrees with the documented findings, assessment, and plan of care documented by EMBOSSING MACHINE OPERATOR as a scribe. Objective - Vital Signs Vital signs: Vital Signs Temp 97.8 F 02/14/24 09:27 Pulse 57 L 02/14/24 09:27 Resp 18 02/14/24 09:27 BP 137/78 02/14/24 09:27 Pulse Ox 95 02/14/24 09:27 FiO2 Intake & Output 02/13/24 02/14/24 02/14/24 18:59 06:59 18:59 Intake Total 50 540 128 Output Total 1700 600 Balance -1650 -60 128 Weight 91.3 kg Intake: IV 50 10 Invasive Line 3 10 Oral 540 118 Output: Urine 1700 600 Other: Voiding Method External Catheter External Catheter External Catheter - Labs CBC & Chem 7: 02/14/24 06:23 02/14/24 06:23 Labs: Abnormal Lab Results - Last 24 Hours (Table) 02/14/24 Range/Units 06:23 Sodium 135 L (137-145) mmol/L BUN 22 H (7-17) mg/dL
[2024-02-14 12:30] VITALS: BP 139/68; PULSE 58
--- NOTE | 2024-02-14 12:44 | P.DS ---
Providers Date of admission: 02/10/24 21:22 Expected date of discharge: 02/14/24 Attending physician: William Salazar Consults: 02/10/24 19:29 Consult Physician Urgent Consulting Provider: Marco Antonio García Consult Reason/Comments: bradycardia Do you want consulting provider notified?: Already Contacted [facility] Course: Discharge diagnosis: Bradycardia with junctional rhythm Hypothyroidism Hyperlipidemia COPD, not in acute exacerbation Anxiety/depression Cognitive decline Overactive bladder GERD Neuropathy Hyperkalemia, resolved Hospital Course: Patient is a 73 year old female with past medical history of COPD, GERD, hyperlipidemia, hypertension, hypothyroidism who was sent to the ED by her geophysical drafter for evaluation of bradycardia. She mentions first noticing the bradycardia when she was at the hospital recently. Upon being discharged she went to her primary care provider. At her primary care provider's office her heart rate was 39-41. Her PCP advised her to see a geophysical drafter. The next day the patient went to see her geophysical drafter who she regularly follows up with. Her heart rate was still low in the 30s which is when her geophysical drafter advised her to come into the ER. The patient also mentions experiencing palpitations intermittently along with chest pain. The chest pain is a 2/10 severity without any radiation. She also admits to experiencing dizziness due to which she had a fall a week ago and had presented to the ED for evaluation. She was discharged home from the ED as there was no fracture. She still complains of the pain on on her left hip from the fall. She denies any fever, headache, shortness of breath, coughing, abdominal pain, nausea, vomiting , dysuria, hematuria, hematochezia, melena. Vitals on admission T 97.6 F, NV 39 bpm, RR 18, BP 121/67, O2 sat 96% on room air. EKG bradycardia with junctional rhythm, rate 36 bpm, QTc 273 ms. CXR shows no acute cardiopulmonary disease/process. Labs on admission show sodium 130, potassium 5.6, BUN 28, creatinine 1.29, TSH 5.080, free T40.95, troponin I <0.012, lactic acid 1.1, magnesium 1.9, WBC 9.4, hemoglobin 14.2, platelet 243, PT 11, INR 1. In the ED patient was treated with dextrose, calcium gluconate, Kingman, insulin, Lokelma. 02/12/24: Patient seen and examined at bedside today. No new complaints today. Vitals today show pulse 50 and BP 128/63. Echocardiogram shows EF 55-60% and normal left ventricular size and systolic function with mild MR. 02/13/24: Patient evaluated at bedside. She mentions feeling lightheaded. Denies palpitations. Labs today show WBC 7.2, hemoglobin 12.9, sodium 133, potassium 4.6, BUN 27, creatinine 1.09. She underwent Biventricular device implantation today. 02/14/24: Patient examined today. No new complaints today. Labs today show WBC 6, hemoglobin 13.5, sodium 135, BUN 22. Chest x-ray shows dual-lead cardiac pacemaker lead tips appear to be in satisfactory position, there is no acute cardiopulmonary disease. Patient seen at bedside today and is feeling good and excited about discharge. Patient will be discharged today and is given a script for Losartan 25 mg PO daily and Levothyroxine 75 mcg. Repeat TSH and T4 in 4-6 weeks. Potassium chloride is discontinued. Patient is given a handout of her discharge summary and discharge instructions. Patient is advised to follow-up with PCP in 1-2 days and geophysical drafter in 1 week. Vital signs are reviewed and stable General: nontoxic, no distress, appears at stated age Derm: warm, dry, intact Head: atraumatic, normocephalic, symmetric Eyes: EOMI, anicteric sclera Mouth: no lip lesion, mucus membranes moist Cardiovascular: S1 S2 reg, no murmur Lungs: CTA bilateral, no rhonchi, no rales, no accessory muscle use Abdominal: soft, non-tender to palpation Extremities: No cyanosis, clubbing, or pedal edema. Neuro: Alert, Oriented, Gross neurological examination did not reveal any focal deficits. Psych: well appearing, appropriate affect A total of 30 minutes of time were spent preparing this complex discharge summary. Patient was discharged on 02/14/24 at 1200. Patient Condition at Discharge: Stable Plan - Discharge Summary Discharge Rx Participant: No New Discharge Prescriptions: New Losartan [Cozaar] 25 mg PO DAILY #90 tab Levothyroxine Sodium [Synthroid] 75 mcg PO 0630 14 Days #14 tab Continue Simvastatin [Zocor] 40 mg PO HS oxyBUTYnin chloride [Ditropan] 5 mg PO DAILY Aspirin EC [Ecotrin Low Dose] 81 mg PO DAILY Acetaminophen [Tylenol Arthritis] 650 mg PO BID Omeprazole 20 mg PO DAILY Donepezil HCl [Aricept] 10 mg PO HS Ascorbic Acid [Vitamin C] 1,000 mg PO DAILY Memantine [Namenda] 5 mg PO BID Naloxone HCl [Narcan] 4 mg NASAL ONCE PRN PRN Reason: SUSPECTED OPIOID OVERDOSE HYDROcodone/APAP 10-325MG [Kingman 10-325] 1 tab PO BID PRN PRN Reason: Pain Albuterol Inhaler [Ventolin Hfa Inhaler] 2 puff INHALATION RT-Q6H PRN PRN Reason: Shortness Of Breath buPROPion HCL [buPROPion HCL SR] 150 mg PO Q12HR Cholecalciferol [Vitamin D3 (25 Mcg = 1000 Iu)] 50 mcg PO DAILY Cyanocobalamin (Vitamin B-12) [Vitamin B-12] 1,000 mcg PO DAILY Multivitamins, Thera [Multivitamin (formulary)] 1 tab PO DAILY Pregabalin [Lyrica] 200 mg PO TID Ferrous Sulfate [Iron (65 MG Elemental)] 325 mg PO BID FLUoxetine HCL 40 mg PO DAILY Discontinued Levothyroxine Sodium [Synthroid] 50 mcg PO DAILY Furosemide [Lasix] 40 mg PO DAILY Potassium Chloride [Klor-Con M10] 10 meq PO DAILY Discharge Medication List Simvastatin [Zocor] 40 mg PO HS 08/29/15 [History] oxyBUTYnin chloride [Ditropan] 5 mg PO DAILY 08/29/15 [History] Acetaminophen [Tylenol Arthritis] 650 mg PO BID 10/24/15 [History] Aspirin EC [Ecotrin Low Dose] 81 mg PO DAILY 10/24/15 [History] Donepezil HCl [Aricept] 10 mg PO HS 10/17/21 [History] Omeprazole 20 mg PO DAILY 10/17/21 [History] buPROPion HCL [buPROPion HCL SR] 150 mg PO Q12HR 10/17/21 [History] Albuterol Inhaler [Ventolin Hfa Inhaler] 2 puff INHALATION RT-Q6H PRN 02/10/24 [History] Ascorbic Acid [Vitamin C] 1,000 mg PO DAILY 02/10/24 [History] Cholecalciferol [Vitamin D3 (25 Mcg = 1000 Iu)] 50 mcg PO DAILY 02/10/24 [History] Cyanocobalamin (Vitamin B-12) [Vitamin B-12] 1,000 mcg PO DAILY 02/10/24 [History] FLUoxetine HCL 40 mg PO DAILY 02/10/24 [History] Ferrous Sulfate [Iron (65 MG Elemental)] 325 mg PO BID 02/10/24 [History] HYDROcodone/APAP 10-325MG [Kingman 10-325] 1 tab PO BID PRN 02/10/24 [History] Memantine [Namenda] 5 mg PO BID 02/10/24 [History] Multivitamins, Thera [Multivitamin (formulary)] 1 tab PO DAILY 02/10/24 [History] Naloxone HCl [Narcan] 4 mg NASAL ONCE PRN 02/10/24 [History] Pregabalin [Lyrica] 200 mg PO TID 02/10/24 [History] Losartan [Cozaar] 25 mg PO DAILY #90 tab 02/13/24 [Rx] Levothyroxine Sodium [Synthroid] 75 mcg PO 0630 14 Days #14 tab 02/14/24 [Rx] Follow up Appointment(s)/Referral(s): Maylin Yu MD [Primary Care Provider] - 1-2 days Julian Garrett MD [STAFF PHYSICIAN] - 1 Week Activity/Diet/Wound Care/Special Instructions: PATIENT EDUCATION MATERIAL Instructions following a heart rhythm device implant. 1. Keep dressing DRY for 5 DAYS. You may cover the area with Saran or Cling Wrap, prior to a shower. 2. The dressing will be removed in the Device [facility] at [facility]. Absorbable sutures were used to close the wound. 3. Avoid raising the left arm above the shoulder level. 4 week restriction 4. Avoid arm movements, like backscratching, rubbing the head, or pulling on a cord. 4 weeks restriction 5. Gentle range of motion movements of the shoulder, closest to the incision should be performed to avoid a frozen shoulder. (Pendulum exercises of the shoulder) 6. The opposite arm may be used freely. 7. Avoid driving for 7 days. 8. Avoid activities such as golfing, swimming, weed whacking, lifting more than 10 pounds weight, bowling, gymnastics and weight training/lifting. (6 weeks restriction) 9. Activities such as wood chopping with an axe, pull-ups in the gymnasium, power lifting, arc-welding, being close to home induction cooktops will always be a problem. 10. Arm sling is only a reminder not to raise the arm above the head. You do not need to keep the arm completely immobilized. Your free to move the arm and use it and for normal activities. In case of any problems, please call [facility], @ [phone], Attention: Device Clinic Device clinic follow-up in 7 days Follow-up with primary geophysical drafter in 1 months Losartan added for hypertension management in the setting of mildly elevated creatinine Discharge Disposition: HOME SELF-CARE
== END 2024-02-14 14:45 | disposition home or self-care (01) | DRG 243 ==
LOC: EC 16:32 → 3SCARD 21:22 → OBSVTOIN 21:22 → 3SCARD 22:59
PROVIDERS: ADMIT Hospitalist; ATTEND Hospitalist
PROC: 02H63JZ Insertion of Pacemaker Lead into Right Atrium, Percutaneous Approach (ICD-10-PCS; principal; 2024-02-13 11:50)
PROC: 0JH606Z Insertion of Pacemaker, Dual Chamber into Chest Subcutaneous Tissue and Fascia, Open Approach (ICD-10-PCS; principal; 2024-02-13 11:50)
PROC: 02HK3JZ Insertion of Pacemaker Lead into Right Ventricle, Percutaneous Approach (ICD-10-PCS; principal; 2024-02-13 11:50)
DX: I49.5 Sick sinus syndrome (principal); E87.1 Hypo-osmolality and hyponatremia; E78.5 Hyperlipidemia, unspecified; E03.9 Hypothyroidism, unspecified; E87.5 Hyperkalemia; F32.A Depression, unspecified; M19.90 Unspecified osteoarthritis, unspecified site; R94.4 Abnormal results of kidney function studies; F41.9 Anxiety disorder, unspecified; R32 Unspecified urinary incontinence; Z88.0 Allergy status to penicillin; G62.9 Polyneuropathy, unspecified; I10 Essential (primary) hypertension; R41.81 Age-related cognitive decline; I45.10 Unspecified right bundle-branch block; J44.9 Chronic obstructive pulmonary disease, unspecified; K21.9 Gastro-esophageal reflux disease without esophagitis; N32.81 Overactive bladder; Z91.81 History of falling; Z79.82 Long term (current) use of aspirin; Z79.890 Hormone replacement therapy; Z79.899 Other long term (current) drug therapy; Z87.891 Personal history of nicotine dependence; Z98.1 Arthrodesis status
CPT/HCPCS: 33208; 36415; 71046; 80048; 80053; 83605; 83735; 84132; 84439; 84443; 84484; 85025; 85027; 85610; 85730; 93005; 93306; 96365; 96366; 96368; 99291

== ENCOUNTER 2024-02-25 16:05 | Inpatient (IN) | payer MEDICARE ==
--- NOTE | 2024-02-25 17:04 | XR ---
EXAMINATION TYPE: XR chest 2V DATE OF EXAM: 02/25/2024 4:48 PM COMPARISON: 02/14/2024 CLINICAL INDICATION: Female, 73 years old with history of altered mental status, TECHNIQUE: XR chest 2V view(s) obtained. FINDINGS: The heart size is borderline prominent. The pulmonary vasculature is normal. The lungs are clear. Pacemaker overlies left chest. There appears to be some air within loops of bowel under the right diaphragm. Additional workup can b e performed if there is clinical concern for pneumoperitoneum IMPRESSION: 1. No acute pulmonary process. 2. Air in the right upper quadrant most likely within loops of bowel. If there is clinical symptoms of pneumoperitoneum, additional workup can be performed. [facility], , 02/25/2024 5:02 PM
[2024-02-25 17:33] LABS: Basophils % (A) 0 %; Eosinophils # (A) 0.2 k/uL (0-0.7); Eosinophils % (A) 1 %; HGB 12.8 gm/dL (11.4-16.0); Lymphocytes # (A) 0.5 k/uL (1.0-4.8); Lymphocytes % (A) 4 %; MCH 31.1 pg (25.0-35.0); MCHC 32.1 g/dL (31.0-37.0); MCV 96.9 fL (80.0-100.0); Mean Platelet Volume 9.3; Monocytes # (A) 0.5 k/uL (0-1.0); Monocytes % (A) 4 %; Neutrophils # (A) 12.7 k/uL (1.3-7.7); Neutrophils % (A) 89 %; Platelet Count 199 k/uL (150-450); RBC 4.13 m/uL (3.80-5.40); RDW 13.5 % (11.5-15.5); WBC 14.2 k/uL (3.8-10.6)
[2024-02-25 17:44] LABS: Partial Thromboplastin Time 26.7 sec (22.0-30.0); Prothrombin Time 11.4 sec (10.0-12.5)
[2024-02-25 17:45] LABS: ALT 31 U/L (4-34); AST 47 U/L (14-36); African American GFR (CKD) 41 (>60 ml/min/1.73 sqM); Alkaline Phosphatase 134 U/L (38-126); Anion Gap 10 mmol/L; Blood Urea Nitrogen 29 mg/dL (7-17); Calcium 9.2 mg/dL (8.4-10.2); Carbon Dioxide 23 mmol/L (22-30); Chloride 102 mmol/L (98-107); Glucose 134 mg/dL (74-99); Non-African American GFR(CKD) 36 (>60 ml/min/1.73 sqM); Potassium 5.1 mmol/L (3.5-5.1); Sodium 135 mmol/L (137-145); Total Bilirubin 0.7 mg/dL (0.2-1.3)
[2024-02-25] MEDS: SODIUM CHLORIDE 0.9% 1,000 ML IV STA ×2 (18:24→19:52)
[2024-02-25] MEDS: methylPREDNISolone SOD SUCCI 125 MG/2 ML VIAL IV STA (18:25)
[2024-02-25] MEDS: IPRATROPIUM-ALBUTEROL 3 ML NEB INHALATION STA (18:43)
--- NOTE | 2024-02-25 19:02 | CT ---
EXAMINATION TYPE: CT ChestAbdPelvis w con DATE OF EXAM: 02/25/2024 6:25 PM COMPARISON: None. CLINICAL INDICATION: Female, 73 years old with history of recent pacemaker placement, eval for pneumo perito, Recent pacemaker placement, eval for pneumoperitoneum. TECHNIQUE: Axial images at 5 mm thick sections. Reconstructed images in the coronal plane. Delayed images through the kidneys. Contrast used:80 ml mL of Isovue 300 with IV Contrast, (none if empty) Oral contrast used: (none if empty) CT DLP: 7.9 mGycm, Automated exposure control for dose reduction was used. FINDINGS: CT CHEST: Portion of the thyroid visualized is normal. There is minimal infiltrate in the anterior lateral right lung periphery measuring 0.7 cm. Series 207 and 16 No enlarged mediastinal or hilar adenopathy is evident. The ascending aorta diameter at the level of the main pulmonary artery is 3.4 cm. The main pulmonary artery diameter at the bifurcation is 3.[address] ABDOMEN: No pneumoperitoneum is evident. There is a small amount of bowel containing air anterior to the liver. Liver: Normal Spleen: Normal Pancreas: Normal Adrenal glands: The adrenal glands are normal. Gallbladder: Normal Kidneys: No masses are evident. No hydronephrosis is present. Multiple cysts are present bilaterall y. The largest are at the inferior pole right kidney measuring 4.7 cm and 3.9 cm. Additional smaller bilateral renal cortical cysts are present Delayed images were obtained through the kidneys, which r emain unremarkable. Aorta: Vascular calcification is within the aorta. Inferior vena cava: Normal. CT PELVIS: Loops of bowel within the abdomen and pelvis are normal. This study is without oral contrast limi ting bowel evaluation. Some fecal debris in the distal: Appendix: Not identified. No dilated tubular structure or inflammatory change is evident. Urinary bladder: Normal. Genitourinary structures: Uterus appears normal. Adnexa are unremarkable. Osseous structures: No suspicious lytic or sclerotic lesions. IMPRESSION: 1. No suspicious changes for acute pneumoperitoneum. There is some air present within the colon anter ior to the liver. 2. Multiple bilateral renal cysts 3. Small area of increased density anterior peripheral right lung. Follow-up exam in 6 months can be performed. [facility], , 02/25/2024 7:00 PM
[2024-02-25 20:13] LABS: Amphetamine Screen,Urine Not Detected (NotDetected); Appearance,Urine Cloudy (Clear); Bacteria,Urine Few /hpf; Barbiturate Screen,Urine Not Detected (NotDetected); Benzodiazepines Screen,Urine Detected (NotDetected); Bilirubin,Urine Negative (Negative); Blood,Urine Moderate (Negative); Cocaine Screen,Urine Not Detected (NotDetected); Color,Urine Light Yellow; Glucose,Urine (UA) Negative (Negative); Ketones,Urine Negative (Negative); Leukocyte Esterase,Urine Large (Negative); Methadone Screen, Urine Not Detected (NotDetected); Mucus,Urine Rare /hpf; Nitrite,Urine Negative (Negative); Opiate Screen,Urine Detected (NotDetected); Oxycodone Screen, Urine Not Detected (NotDetected); Phencyclidine Screen,Urine Not Detected (NotDetected); Protein,Urine 2+ (Negative); RBC,Urine 13 /hpf (0-5); Specific Gravity,Urine 1.031 (1.001-1.035); Squamous Epithelial Cell,Urine 2 /hpf (0-4); Tricyclic Antidepressant,Urine Not Detected (NotDetected); Urn Cannabinoid Scrn Not Detected (NotDetected); Urobilinogen,Urine <2.0 mg/dL (<2.0); WBC,Urine >182 /hpf (0-5)
[2024-02-25] MEDS ORDERED: NALOXONE 0.4 MG/ML 1 ML VIAL IV PRN (20:26)
[2024-02-25] MEDS ORDERED: ONDANSETRON 4 MG/2 ML VIAL IVP PRN (20:26)
--- NOTE | 2024-02-25 20:29 | ED ---
General Adult HPI - General Chief complaint: Weakness Stated complaint: infection Time Seen by Provider: 02/25/24 16:20 Source: patient, family, EMS, RN notes reviewed, old records reviewed Mode of arrival: EMS Limitations: no limitations - History of Present Illness Initial comments: Patient is a 73-year-old female who presents emergency department complaining of multiple complaints. Primarily is generalized body aches, weakness. States she recently had a pacemaker placed 1 week ago and is concerned for some form of infection. Denies any abdominal pain, chest pain. No known fevers. Denies any nausea or vomiting. Denies diarrhea. There is no obvious source of infection. Endorses some soreness at the site of the pacemaker placement but no obvious warmth, edema, redness, discharge. Presents for further evaluation at this time. - Related Data Home Medications Medication Instructions Recorded Confirmed Simvastatin [Zocor] 40 mg PO HS 08/29/15 02/25/24 oxyBUTYnin chloride [Ditropan] 5 mg PO DAILY 08/29/15 02/25/24 Acetaminophen [Tylenol Arthritis] 650 mg PO BID 10/24/15 02/25/24 Aspirin EC [Ecotrin Low Dose] 81 mg PO DAILY 10/24/15 02/25/24 Donepezil HCl [Aricept] 10 mg PO HS 10/17/21 02/25/24 Omeprazole 20 mg PO DAILY 10/17/21 02/25/24 buPROPion HCL [buPROPion HCL SR] 150 mg PO Q12HR 10/17/21 02/25/24 Albuterol Inhaler [Ventolin Hfa 2 puff INHALATION RT-Q6H PRN 02/10/24 02/25/24 Inhaler] Ascorbic Acid [Vitamin C] 1,000 mg PO DAILY 02/10/24 02/25/24 Cholecalciferol [Vitamin D3 (25 50 mcg PO DAILY 02/10/24 02/25/24 Mcg = 1000 Iu)] Cyanocobalamin (Vitamin B-12) 1,000 mcg PO DAILY 02/10/24 02/25/24 [Vitamin B-12] FLUoxetine HCL 40 mg PO DAILY 02/10/24 02/25/24 Ferrous Sulfate [Iron (65 MG 325 mg PO BID 02/10/24 02/25/24 Elemental)] HYDROcodone/APAP 10-325MG [[place] 1 tab PO BID PRN 02/10/24 02/25/24 10-325] Memantine [Namenda] 5 mg PO BID 02/10/24 02/25/24 Multivitamins, Thera [Multivitamin 1 tab PO DAILY 02/10/24 02/25/24 (formulary)] Naloxone HCl [Narcan] 4 mg NASAL ONCE PRN 02/10/24 02/25/24 Pregabalin [Lyrica] 200 mg PO TID 02/10/24 02/25/24 Levothyroxine Sodium [Synthroid] 75 mcg PO DAILY 02/25/24 02/25/24 Previous Rx's Medication Instructions Recorded Losartan [Cozaar] 25 mg PO DAILY #90 tab 02/13/24 Allergies Allergy/AdvReac Type Severity Reaction Status Date / Time Penicillins Allergy Rash/Hives Verified 02/25/24 20:33 venom-honey bee Allergy Swelling Verified 02/25/24 20:33 [bee venom (honey bee)] Review of Systems ROS Statement: Those systems with pertinent positive or pertinent negative responses have been documented in the HPI. Review of Systems: CONST: Denies fever EYES: Denies blurry vision ENT: Denies nasal congestion C/V: Denies Chest pain RESP: Denies shortness of breath GI: Denies abdominal pain : Denies dysuria SKIN: Denies rash. MSK: Denies joint pain. NEURO: Denies headache ROS Other: All systems not noted in ROS Statement are negative. Past Medical History Past Medical History: COPD, GERD/Reflux, Hyperlipidemia, Hypertension, Memory Impairment, Osteoarthritis (OA), Thyroid Disorder Additional Past Medical History / Comment(s): urinary incontinence, crushed tailbone, herniated discs History of Any Multi-Drug Resistant Organisms: None Reported Past Surgical History: Appendectomy, Section, Heart Catheterization, Pacemaker Additional Past Surgical History / Comment(s): NECK FUSION, colonoscopy Past Anesthesia/Blood Transfusion Reactions: No Reported Reaction, Motion Sickness Past Psychological History: Anxiety, Depression Smoking Status: Former smoker Past Alcohol Use History: Rare Past Drug Use History: None Reported - Past Family History Mother Family Medical History: Cancer Father Family Medical History: Cancer Additional Family Medical History / Comment(s): PROSTATE Brother(s) Family Medical History: Cancer Additional Family Medical History / Comment(s): ESOPHAGUS CANCER Sister(s) Family Medical History: Cancer Additional Family Medical History / Comment(s): BREAST General Exam - General Exam Comments Initial Comments: General: Appears in no acute distress. HEAD: Normal with no signs of head trauma. EYES: PERRLA, EOMI, conjunctiva normal, no discharge. ENT: Hearing grossly intact, normal oropharynx. RESPIRATORY: Clear breath sounds bilaterally. No wheezes, rales, or rhonchi. C/V: Regular rate and rhythm. S1 and S2 auscultated, no edema, peripheral pulses 2+ and intact throughout ABD: Abd is soft, nontender, nondistended EXT: Normal range of motion, no obvious deformity SKIN: No rashes or lesions observed on exposed skin. Pacemaker placement site is not erythematous. No obvious discharge. No obvious edema. No significant tenderness to palpation. Appears to be healing well. NEURO: Alert and oriented x 4. Generalized weakness. Limitations: no limitations Course Vital Signs 02/25/24 02/25/24 02/25/24 16:16 17:15 18:44 Temperature 99.3 F 99.4 F Pulse Rate 65 59 L 76 Respiratory 20 20 Rate Blood Pressure 109/69 115/74 O2 Sat by Pulse 91 L 92 L Oximetry 02/25/24 02/25/24 18:53 19:54 Temperature Pulse Rate 65 72 Respiratory 18 Rate Blood Pressure 136/85 O2 Sat by Pulse 95 Oximetry Medical Decision Making - Medical Decision Making Was pt. sent in by a medical professional or institution ([facility], CALL CENTER OPERATIONS MANAGER, urgent care, hospital, or [facility]...) When possible be specific @ -No Did you speak to anyone other than the patient for history (EMS, parent, family, police, friend...)? What history was obtained from this source @ -No Did you review nursing and triage notes (agree or disagree)? Why? @ -I reviewed and agree with nursing and triage notes Were old charts reviewed (outside hosp., previous admission, EMS record, old EKG, old radiological studies, urgent care reports/EKG's, [facility] records)? Report findings @ -No old charts were reviewed Differential Diagnosis (chest pain, altered mental status, abdominal pain women, abdominal pain men, vaginal bleeding, weakness, fever, dyspnea, syncope, headache, dizziness, GI bleed, back pain, seizure, CVA, palpatations, mental health, musculoskeletal)? @ -Dehydration, UTI, infection, sepsis. This list is not all inclusive. EKG interpreted by me (3pts min.). @ -As above X-rays interpreted by me (1pt min.). @ -Chest x-ray reveals possible air-filled bowels versus pneumoperitoneum. CT interpreted by me (1pt min.). @ -CT chest abdomen pelvis reveals no obvious acute process. Patient has a ri ght pulmonary nodule which is known to the patient. No evidence of pneumoperitoneum. Pacemaker site appears clean with no obvious infection. U/S interpreted by me (1pt. min.). @ -None done What testing was considered but not performed or refused? (CT, X-rays, U/S, labs)? Why? @ -None What meds were considered but not given or refused? Why? @ -None Did you discuss the management of the patient with other professionals (professionals i.e. , PA, CALL CENTER OPERATIONS MANAGER, lab, RT, psych nurse, social worker psychiatric, manager pacu, teacher, risk control officer, child welfare caseworker)? Give summary @ -With the admitting provider, KOBE Salas of [facility] who accepted the admission. Was smoking cessation discussed for >3mins.? @ -No Was critical care preformed (if so, how long)? @ -No Were there social determinants of health that impacted care today? How? (Homelessness, low income, unemployed, alcoholism, drug addiction, transportation, low edu. Level, literacy, decrease access to med. care, shelter, rehab)? @ -No Was there de-escalation of care discussed even if they declined (Discuss DNR or withdrawal of care, Hospice)? DNR status @ -No What co-morbidities impacted this encounter? (DM, HTN, Smoking, COPD, CAD, Cancer, CVA, ARF, Chemo, Hep., AIDS, mental health diagnosis, sleep apnea, morbid obesity)? @ -None Was patient admitted / discharged? Hospital course, mention meds given and route, prescriptions, significant lab abnormalities, going to OR and other pertinent info. @ -Patient presents with weakness, concern for infection. Recent pacemaker site does not appear infected. We will obtain broad workup. She was in agree ment this plan. Vitals within acceptable limits. Chronic COPD patient. Mild wheeze on exam and given a dose of steroids as well as a breathing treatment. Imaging including CT imaging unremarkable. Labs remarkable for leukocytosis of 14. Patient has a mild JUSTIN on CKD with a BUN of 29 and creatinine of 1.46. Troponin is indeterminate. Urinalysis positive for UTI. Viral swabs negative. Patient started on Rocephin. Discussed admission versus discharge and patient will be admitted to observation for IV hydration as well as IV antibiotics. Cardiology consulted due to the recent pacemaker placement. She was in agreement this plan. I spoke with the admitting team, KOBE Salas of [facility] accepted the admission. Undiagnosed new problem with uncertain prognosis? @ -No Drug Therapy requiring intensive monitoring for toxicity (Heparin, Nitro, Insulin, Cardizem)? @ -No Were any procedures done? @ -No Diagnosis/symptom? @ -Weakness, UTI, dehydration Acute, or Chronic, or Acute on Chronic? @ -Acute Uncomplicated (without systemic symptoms) or Complicated (systemic symptoms)? @ -Complicated Side effects of treatment? @ -No Exacerbation, Progression, or Severe Exacerbation? @ -No Poses a threat to life or bodily function? How? (Chest pain, [place], [place], pneumonia, PE, COPD, DKA, ARF, appy, cholecystitis, CVA, Diverticulitis, Homicidal, Suicidal, threat to staff... and all critical care pts) @ -Potentially, yes - Lab Data Result diagrams: 02/25/24 17:17 02/25/24 17:17 Lab Results 02/25/24 02/25/24 02/25/24 Range/Units 17:17 17:17 17:17 WBC 14.2 H (3.8-10.6) k/uL RBC 4.13 (3.80-5.40) m/uL Hgb 12.8 (11.4-16.0) gm/dL Hct 40.0 (34.0-46.0) % MCV 96.9 (80.0-100.0) fL MCH 31.1 (25.0-35.0) pg MCHC 32.1 (31.0-37.0) g/dL RDW 13.5 (11.5-15.5) % Plt Count 199 (150-450) k/uL MPV 9.3 Neutrophils % 89 % Lymphocytes % 4 % Monocytes % 4 % Eosinophils % 1 % Basophils % 0 % Neutrophils # 12.7 H (1.3-7.7) k/uL Lymphocytes # 0.5 L (1.0-4.8) k/uL Monocytes # 0.5 (0-1.0) k/uL Eosinophils # 0.2 (0-0.7) k/uL Basophils # 0.0 (0-0.2) k/uL PT 11.4 (10.0-12.5) sec INR 1.0 (<1.2) APTT 26.7 (22.0-30.0) sec Sodium (137-145) mmol/L Potassium (3.5-5.1) mmol/L Chloride (98-107) mmol/L Carbon Dioxide (22-30) mmol/L Anion Gap mmol/L BUN (7-17) mg/dL Creatinine (0.52-1.04) mg/dL Est GFR (CKD-EPI)AfAm (>60 ml/min/1.73 sqM) Est GFR (CKD-EPI)NonAf (>60 ml/min/1.73 sqM) Glucose (74-99) mg/dL Calcium (8.4-10.2) mg/dL Total Bilirubin (0.2-1.3) mg/dL AST (14-36) U/L ALT (4-34) U/L Alkaline Phosphatase (38-126) U/L Troponin I (0.000-0.034) ng/mL Total Protein (6.3-8.2) g/dL Albumin (3.5-5.0) g/dL Urine Color Urine Appearance (Clear) Urine pH (5.0-8.0) Ur Specific [place] (1.001-1.035) Urine Protein (Negative) Urine Glucose (UA) (Negative) Urine Ketones (Negative) Urine Blood (Negative) Urine Nitrite (Negative) Urine Bilirubin (Negative) Urine Urobilinogen (<2.0) mg/dL Ur Leukocyte Esterase (Negative) Urine RBC (0-5) /hpf Urine WBC (0-5) /hpf Ur Squamous Epith Cells (0-4) /hpf Urine Bacteria (None) /hpf Urine Mucus (None) /hpf Urine Opiates Screen Detected H (NotDetected) Ur Oxycodone Screen Not Detected (NotDetected) Urine Methadone Screen Not Detected (NotDetected) Ur Barbiturates Screen Not Detected (NotDetected) U Tricyclic Antidepress Not Detected (NotDetected) Ur Phencyclidine Scrn Not Detected (NotDetected) Ur Amphetamines Screen Not Detected (NotDetected) U Methamphetamines Scrn Not Detected (NotDetected) U Benzodiazepines Scrn Detected H (NotDetected) Urine Cocaine Screen Not Detected (NotDetected) U Marijuana (THC) Screen Not Detected (NotDetected) Influenza Type A (PCR) (Not Detectd) Influenza Type B (PCR) (Not Detectd) RSV (PCR) (Not Detectd) SARS-CoV-2 (PCR) (Not Detectd) 02/25/24 02/25/24 02/25/24 Range/Units 17:17 17:17 17:17 WBC (3.8-10.6) k/uL RBC (3.80-5.40) m/uL Hgb (11.4-16.0) gm/dL Hct (34.0-46.0) % MCV (80.0-100.0) fL MCH (25.0-35.0) pg MCHC (31.0-37.0) g/dL RDW (11.5-15.5) % Plt Count (150-450) k/uL MPV Neutrophils % % Lymphocytes % % Monocytes % % Eosinophils % % Basophils % % Neutrophils # (1.3-7.7) k/uL Lymphocytes # (1.0-4.8) k/uL Monocytes # (0-1.0) k/uL Eosinophils # (0-0.7) k/uL Basophils # (0-0.2) k/uL PT (10.0-12.5) sec INR (<1.2) APTT (22.0-30.0) sec Sodium 135 L (137-145) mmol/L Potassium 5.1 (3.5-5.1) mmol/L Chloride 102 (98-107) mmol/L Carbon Dioxide 23 (22-30) mmol/L Anion Gap 10 mmol/L BUN 29 H (7-17) mg/dL Creatinine 1.46 H (0.52-1.04) mg/dL Est GFR (CKD-EPI)AfAm 41 (>60 ml/min/1.73 sqM) Est GFR (CKD-EPI)NonAf 36 (>60 ml/min/1.73 sqM) Glucose 134 H (74-99) mg/dL Calcium 9.2 (8.4-10.2) mg/dL Total Bilirubin 0.7 (0.2-1.3) mg/dL AST 47 H (14-36) U/L ALT 31 (4-34) U/L Alkaline Phosphatase 134 H (38-126) U/L Troponin I 0.021 (0.000-0.034) ng/mL Total Protein 7.0 (6.3-8.2) g/dL Albumin 4.0 (3.5-5.0) g/dL Urine Color Light Yellow Urine Appearance Cloudy H (Clear) Urine pH 7.0 (5.0-8.0) Ur Specific [place] 1.031 (1.001-1.035) Urine Protein 2+ H (Negative) Urine Glucose (UA) Negative (Negative) Urine Ketones Negative (Negative) Urine Blood Moderate H (Negative) Urine Nitrite Negative (Negative) Urine Bilirubin Negative (Negative) Urine Urobilinogen <2.0 (<2.0) mg/dL Ur Leukocyte Esterase Large H (Negative) Urine RBC 13 H (0-5) /hpf Urine WBC >182 H (0-5) /hpf Ur Squamous Epith Cells 2 (0-4) /hpf Urine Bacteria Few H (None) /hpf Urine Mucus Rare H (None) /hpf Urine Opiates Screen (NotDetected) Ur Oxycodone Screen (NotDetected) Urine Methadone Screen (NotDetected) Ur Barbiturates Screen (NotDetected) U Tricyclic Antidepress (NotDetected) Ur Phencyclidine Scrn (NotDetected) Ur Amphetamines Screen (NotDetected) U Methamphetamines Scrn (NotDetected) U Benzodiazepines Scrn (NotDetected) Urine Cocaine Screen (NotDetected) U Marijuana (THC) Screen (NotDetected) Influenza Type A (PCR) (Not Detectd) Influenza Type B (PCR) (Not Detectd) RSV (PCR) (Not Detectd) SARS-CoV-2 (PCR) (Not Detectd) 02/25/24 Range/Units 18:26 WBC (3.8-10.6) k/uL RBC (3.80-5.40) m/uL Hgb (11.4-16.0) gm/dL Hct (34.0-46.0) % MCV (80.0-100.0) fL MCH (25.0-35.0) pg MCHC (31.0-37.0) g/dL RDW (11.5-15.5) % Plt Count (150-450) k/uL MPV Neutrophils % % Lymphocytes % % Monocytes % % Eosinophils % % Basophils % % Neutrophils # (1.3-7.7) k/uL Lymphocytes # (1.0-4.8) k/uL Monocytes # (0-1.0) k/uL Eosinophils # (0-0.7) k/uL Basophils # (0-0.2) k/uL PT (10.0-12.5) sec INR (<1.2) APTT (22.0-30.0) sec Sodium (137-145) mmol/L Potassium (3.5-5.1) mmol/L Chloride (98-107) mmol/L Carbon Dioxide (22-30) mmol/L Anion Gap mmol/L BUN (7-17) mg/dL Creatinine (0.52-1.04) mg/dL Est GFR (CKD-EPI)AfAm (>60 ml/min/1.73 sqM) Est GFR (CKD-EPI)NonAf (>60 ml/min/1.73 sqM) Glucose (74-99) mg/dL Calcium (8.4-10.2) mg/dL Total Bilirubin (0.2-1.3) mg/dL AST (14-36) U/L ALT (4-34) U/L Alkaline Phosphatase (38-126) U/L Troponin I (0.000-0.034) ng/mL Total Protein (6.3-8.2) g/dL Albumin (3.5-5.0) g/dL Urine Color Urine Appearance (Clear) Urine pH (5.0-8.0) Ur Specific [place] (1.001-1.035) Urine Protein (Negative) Urine Glucose (UA) (Negative) Urine Ketones (Negative) Urine Blood (Negative) Urine Nitrite (Negative) Urine Bilirubin (Negative) Urine Urobilinogen (<2.0) mg/dL Ur Leukocyte Esterase (Negative) Urine RBC (0-5) /hpf Urine WBC (0-5) /hpf Ur Squamous Epith Cells (0-4) /hpf Urine Bacteria (None) /hpf Urine Mucus (None) /hpf Urine Opiates Screen (NotDetected) Ur Oxycodone Screen (NotDetected) Urine Methadone Screen (NotDetected) Ur Barbiturates Screen (NotDetected) U Tricyclic Antidepress (NotDetected) Ur Phencyclidine Scrn (NotDetected) Ur Amphetamines Screen (NotDetected) U Methamphetamines Scrn (NotDetected) U Benzodiazepines Scrn (NotDetected) Urine Cocaine Screen (NotDetected) U Marijuana (THC) Screen (NotDetected) Influenza Type A (PCR) Not Detected (Not Detectd) Influenza Type B (PCR) Not Detected (Not Detectd) RSV (PCR) Not Detected (Not Detectd) SARS-CoV-2 (PCR) Not Detected (Not Detectd) - EKG Data -: EKG Interpreted by Me EKG Comments: 12-lead Electrocardiogram Interpretation Note EKG was reviewed and interpreted by myself. 12-lead ECG performed at 1704 is interpreted by me as revealing normal sinus rhythm at a rate of 88 beats per minute. [place] is normal. ND interval is 85 ms, QRS duration is 89 ms, QTc is 3 and 17 ms. Occasional pacemaker spikes present.. There were no ST or T wave abnormalities to suggest myocardial ischemia or injury. R wave progression across the precordium was satisfactory. By my interpretation this EKG is non- diagnostic for acute ischemia. Disposition Clinical Impression: UTI (urinary tract infection), Weakness, Dehydration Disposition: ADMITTED IP TO THIS HOSP Condition: Stable Time of Disposition: 20:29
[2024-02-25] MEDS: ACETAMINOPHEN TAB 325 MG TAB PO PRN (20:53)
[2024-02-26] MEDS ORDERED: IPRATROPIUM-ALBUTEROL 3 ML NEB INHALATION SCH
[2024-02-26] MEDS ORDERED: ALBUTEROL NEBULIZED 2.5 MG/3 ML INHALATION PRN (06:14)
[2024-02-26] MEDS: HEPARIN SODIUM,PORCINE 5,000 UNIT/ML 1 ML VIAL SQ SCH (06:20)
[2024-02-26] MEDS: LEVOTHYROXINE 75 MCG TAB PO SCH (06:31)
[2024-02-26] MEDS: HYDROcodone/APAP 10-325MG 1 EACH TAB PO PRN (06:31)
[2024-02-26] MEDS: IPRATROPIUM-ALBUTEROL 3 ML NEB INHALATION SCH (07:48)
[2024-02-26] MEDS: PREGABALIN 100 MG CAP PO SCH (08:28)
[2024-02-26] MEDS: CHOLECALCIFEROL 25 MCG (1000 IU) TABLET PO SCH (08:29)
[2024-02-26] MEDS: ASCORBIC ACID 500 MG TAB PO SCH (08:29)
[2024-02-26] MEDS: FLUoxetine HCL 20 MG CAP PO SCH (08:29)
[2024-02-26] MEDS: oxyBUTYnin chloride 5 MG TAB PO SCH (08:29)
[2024-02-26] MEDS: MULTIVITAMINS, THERA 1 EACH TAB PO SCH (08:29)
[2024-02-26] MEDS: LOSARTAN 25 MG TAB PO SCH (08:30)
[2024-02-26] MEDS: ACETAMINOPHEN TAB 325 MG TAB PO SCH (08:30)
[2024-02-26] MEDS: ASPIRIN 81 MG PO SCH (08:30)
[2024-02-26] MEDS: MEMANTINE 5 MG TAB PO SCH (08:30)
[2024-02-26] MEDS: PANTOPRAZOLE 40 MG TABLET PO SCH (08:30)
[2024-02-26] MEDS: CYANOCOBALAMIN 500 MCG TAB PO SCH (08:31)
[2024-02-26] MEDS: buPROPion SR 150 MG TABLET.ER PO SCH (08:31)
[2024-02-26] MEDS: FERROUS SULFATE 325 MG TAB PO SCH (08:31)
[2024-02-26 08:59] LABS: Chloride 99 mmol/L (96-109); Glucose 194 mg/dL (70-110); Potassium 4.1 mmol/L (3.5-5.5); Sodium 135 mmol/L (135-145)
[2024-02-26 09:00] LABS: ALT 45 U/L (8-44); AST 70 U/L (13-35); Albumin 3.7 g/dL (3.8-4.9); Albumin/Globulin Ratio 1.16 Ratio (1.60-3.17); Alkaline Phosphatase 141 U/L (41-126); Calcium 8.9 mg/dL (8.7-10.3); Carbon Dioxide 19.7 mmol/L (21.6-31.8); Globulin 3.2 g/dL (1.6-3.3); Total Bilirubin 0.2 mg/dL (0.3-1.2); Total Protein 6.9 g/dL (6.2-8.2)
[2024-02-26 10:54] LABS: Basophils # (A) 0.03 X 10*3/uL (0.00-0.10); Basophils % (A) 0.2 %; Eosinophils # (A) 0 X 10*3/uL (0.04-0.35); Eosinophils % (A) 0 %; HCT 38.1 % (37.2-46.3); Lymphocytes # (A) 0.66 X 10*3/uL (0.90-5.00); Lymphocytes % (A) 5.2 %; MCH 30.5 pg (27.0-32.0); MCHC 31.5 g/dL (32.0-37.0); MCV 96.9 FL (80.0-97.0); Mean Platelet Volume 12.1 FL (9.5-12.2); Monocytes % (A) 5.5 %; NRBC Per 100 WBC 0 X 10*3/uL (0.00-0.01); Neutrophils # (A) 11.33 X 10*3/uL (1.80-7.70); Neutrophils % (A) 88.5 %; Platelet Count 183 X 10*3/uL (140-440); RBC 3.93 X 10*6/uL (4.10-5.20); RBC Morphology Normal (Normal); RDW 14.1 % (11.5-14.5)
--- NOTE | 2024-02-26 12:37 | P.CRDCN ---
History of Present Illness Consult date: 02/27/24 Reason for Consult (text): Recent pacemaker, site pain History of present illness: This is a 73-year-old female patient of Dr. Bing Garrett with past medical history of hypothyroidism, hypertension, dyslipidemia, dementia, depression, chronic musculoskeletal pain, recently hospitalized with symptomatic bradycardia and sick sinus syndrome, underwent dual-chamber permanent pacemaker on 02/[address] García. Patient states that she came into the hospital because she could not walk. Her lower extremities were extremely weak. She does not know the underlying cause. She states she has shortness of breath which is chronic and she has had for years. Regarding pacemaker site, patient states that she did have more tenderness at the initial time of surgery but this has improved each day and to the point where she forgets that she is to use limited mobility on the left arm. No drainage from the wound. She denies fever or chills. Patient states that she did follow-up in the device clinic after her discharge from the hospital. Blood pressure 144/63, heart rate 56, pulse ox 94% on room air. Patient has been started on IV Solu-Medrol, nebulizer treatments and IV antibiotics. -EKG: Sinus rhythm, PACs, -Chest x-ray: No acute pulmonary process. Air in the right upper quadrant most likely loops of bowel. -CT of the chest abdomen pelvis revealed no suspicious changes for acute pneumoperitoneum. Some air present in the colon anterior to the liver. Multiple bilateral renal cysts. Small area of increased density anterior peripheral right lung. -Laboratory studies: WBC 12.8, hemoglobin 12. Sodium 135, potassium 4.1, BUN 26 creatinine 1.3. Total bilirubin 0.2, AST 70, ALT 45, alkaline phosphatase 141. -Home cardiac medications: Aspirin 81 mg daily, losartan 25 mg daily, simvastatin 40 mg at bedtime -Echocardiogram performed 02/11/2024 revealed technically difficult study. Normal LV size and systolic function. Mild mitral regurgitation. -Cardiac catheterization performed 02/19/2010 revealed minimal CAD. -Lexiscan Cardiolite stress test performed 05/17/2020 in the office revealed negative stress test by EKG criteria. Normal myocardial perfusion and function. Review Of Systems: At the time of my exam: CONSTITUTIONAL: Denies fever or chills. Notes generalized weakness. HEENT: Denies blurred vision, vision changes, or eye pain. Denies hemoptysis CARDIOVASCULAR: Denies chest pain. Denies orthopnea. Denies PND. Denies palpitations RESPIRATORY: Denies shortness of breath. GASTROINTESTINAL: Denies abdominal pain. Denies nausea or vomiting. HEMATOLOGIC: Denies bleeding disorders. GENITOURINARY: Denies any blood in urine. SKIN: Denies puritis. Denies rash. Physical examination: Gen: This is a obese 73-year-old female in no acute distress VS: reviewed HEENT: Head is atraumatic, normocephalic. Pupils equal, round. Sclerae is anicteric. NECK: Supple. No JVD. LUNGS: Left-sided rhonchi. No intercostal retractions. HEART: Regular rate and rhythm. No murmur. CEST WALL: Pacemaker noted to the left upper anterior chest wall. Mild edema and mild tenderness to the lateral area. No drainage, wound edges are well- approximated, no erythema. ABDOMEN: Soft No tenderness. EXTREMITIES: No pedal edema. No calf tenderness. NEUROLOGICAL: Patient is awake, alert and oriented x3. Assessment: Sick sinus syndrome status post permanent dual chamber pacemaker implantation 02/12 Tenderness at the pacemaker site Lower extremity weakness Hypertension Hypothyroidism Dyslipidemia Dementia Depression Chronic musculoskeletal pain Plan: Resume patient's home cardiac medications No need to repeat echocardiogram as this was done 02/10 Obtain blood culture x 215 minutes apart Monitor blood cultures Further recommendations to follow based upon clinical course Thank you kindly for this consultation. Nurse practitioner note has been reviewed, I agree with documented findings and plan of care. Patient was seen and examined. Past Medical History Past Medical History: COPD, GERD/Reflux, Hyperlipidemia, Hypertension, Memory Impairment, Osteoarthritis (OA), Thyroid Disorder Additional Past Medical History / Comment(s): urinary incontinence, crushed ta ilbone, herniated discs History of Any Multi-Drug Resistant Organisms: None Reported Past Surgical History: Appendectomy, Section, Heart Catheterization, Pacemaker Additional Past Surgical History / Comment(s): NECK FUSION, colonoscopy Past Anesthesia/Blood Transfusion Reactions: No Reported Reaction, Motion Sickness Type of Cardiac Device: Unknown Device Placement Date:: 02/13/24 Past Psychological History: Anxiety, Depression Smoking Status: Former smoker Past Alcohol Use History: Rare Additional Past Alcohol Use History / Comment(s): STARTED SMOKING AT AGE 18- SMOKES <1/2PPD Past Drug Use History: None Reported Additional Drug Use History / Comment(s): quit smoking 2023. - Past Family History Mother Family Medical History: Cancer Father Family Medical History: Cancer Additional Family Medical History / Comment(s): PROSTATE Brother(s) Family Medical History: Cancer Additional Family Medical History / Comment(s): ESOPHAGUS CANCER Sister(s) Family Medical History: Cancer Additional Family Medical History / Comment(s): BREAST Medications and Allergies Home Medications Medication Instructions Recorded Confirmed Type Simvastatin [Zocor] 40 mg PO HS 08/29/15 02/25/24 History oxyBUTYnin chloride [Ditropan] 5 mg PO DAILY 08/29/15 02/25/24 History Acetaminophen [Tylenol Arthritis] 650 mg PO BID 10/24/15 02/25/24 History Aspirin EC [Ecotrin Low Dose] 81 mg PO DAILY 10/24/15 02/25/24 History Donepezil HCl [Aricept] 10 mg PO HS 10/17/21 02/25/24 History Omeprazole 20 mg PO DAILY 10/17/21 02/25/24 History buPROPion HCL [buPROPion HCL SR] 150 mg PO Q12HR 10/17/21 02/25/24 History Albuterol Inhaler [Ventolin Hfa 2 puff INHALATION RT-Q6H PRN 02/10/24 02/25/24 History Inhaler] Ascorbic Acid [Vitamin C] 1,000 mg PO DAILY 02/10/24 02/25/24 History Cholecalciferol [Vitamin D3 (25 50 mcg PO DAILY 02/10/24 02/25/24 History Mcg = 1000 Iu)] Cyanocobalamin (Vitamin B-12) 1,000 mcg PO DAILY 02/10/24 02/25/24 History [Vitamin B-12] FLUoxetine HCL 40 mg PO DAILY 02/10/24 02/25/24 History Ferrous Sulfate [Iron (65 MG 325 mg PO BID 02/10/24 02/25/24 History Elemental)] HYDROcodone/APAP 10-325MG [[place] 1 tab PO BID PRN 02/10/24 02/25/24 History 10-325] Memantine [Namenda] 5 mg PO BID 02/10/24 02/25/24 History Multivitamins, Thera [Multivitamin 1 tab PO DAILY 02/10/24 02/25/24 History (formulary)] Naloxone HCl [Narcan] 4 mg NASAL ONCE PRN 02/10/24 02/25/24 History Pregabalin [Lyrica] 200 mg PO TID 02/10/24 02/25/24 History Losartan [Cozaar] 25 mg PO DAILY #90 tab 02/13/24 02/25/24 Rx Levothyroxine Sodium [Synthroid] 75 mcg PO DAILY 02/25/24 02/25/24 History Allergies Allergy/AdvReac Type Severity Reaction Status Date / Time Penicillins Allergy Rash/Hives Verified 02/25/24 20:33 venom-honey bee Allergy Swelling Verified 02/25/24 20:33 [bee venom (honey bee)] Physical Exam Vitals: Vital Signs Temp Pulse Pulse Resp BP BP Pulse Ox 02/26/24 08:45 56 L 18 02/26/24 07:58 60 02/26/24 07:50 56 L 94 L 02/26/24 07:21 97.8 F 56 L 18 144/63 94 L 02/26/24 02:00 98.0 F 62 14 148/72 95 02/26/24 00:34 98.0 F 62 12 130/72 93 L 02/25/24 22:39 98.2 F 68 18 136/68 94 L 02/25/24 19:54 72 18 136/85 95 02/25/24 18:53 65 02/25/24 18:44 76 02/25/24 17:15 99.4 F 59 L 20 115/74 92 L 02/25/24 16:16 99.3 F 65 20 109/69 91 L FiO2 02/26/24 08:45 02/26/24 07:58 02/26/24 07:50 21 02/26/24 07:21 02/26/24 02:00 02/26/24 00:34 02/25/24 22:39 02/25/24 19:54 02/25/24 18:53 02/25/24 18:44 02/25/24 17:15 02/25/24 16:16 Intake and Output 02/25/24 02/26/24 02/26/24 22:59 06:59 14:59 Intake Total 440 Output Total 400 Balance 40 Intake: Oral 440 Output: Urine 400 Other: Voiding Method External Catheter Bedpan External Catheter # Voids 2 # Bowel Movements 1 Weight 101.151 kg 101.151 kg Results 02/27/24 09:46 02/27/24 09:46 Cardiac Enzymes 02/25/24 02/25/24 02/26/24 Range/Units 17:17 17:17 05:36 AST 47 H 70 H (14-36) U/L Troponin I 0.021 (0.000-0.034) ng/mL Coagulation 02/25/24 Range/Units 17:17 PT 11.4 (10.0-12.5) sec APTT 26.7 (22.0-30.0) sec CBC 02/25/24 02/26/24 Range/Units 17:17 05:43 WBC 14.2 H 12.80 H (3.8-10.6) k/uL RBC 4.13 3.93 L (3.80-5.40) m/uL Hgb 12.8 12.0 (11.4-16.0) gm/dL Hct 40.0 38.1 (34.0-46.0) % Plt Count 199 183 (150-450) k/uL Comprehensive Metabolic Panel 02/25/24 02/26/24 Range/Units 17:17 05:36 Sodium 135 L 135 (137-145) mmol/L Potassium 5.1 4.1 (3.5-5.1) mmol/L Chloride 102 99 (98-107) mmol/L Carbon Dioxide 23 19.7 L (22-30) mmol/L BUN 29 H 26.0 (7-17) mg/dL Creatinine 1.46 H 1.3 (0.52-1.04) mg/dL Glucose 134 H 194 H (74-99) mg/dL Calcium 9.2 8.9 (8.4-10.2) mg/dL AST 47 H 70 H (14-36) U/L ALT 31 45 H (4-34) U/L Alkaline Phosphatase 134 H 141 H (38-126) U/L Total Protein 7.0 6.9 (6.3-8.2) g/dL Albumin 4.0 3.7 L (3.5-5.0) g/dL Current Medications Generic Name Dose Route Start Last Admin Trade Name Freq PRN Reason Stop Dose Admin Acetaminophen 650 mg 02/25/24 20:26 02/25/24 20:53 Acetaminophen Tab 325 Mg Tab PO 650 mg Q6HR PRN Administration Mild Pain or Fever > 100.5 Acetaminophen 650 mg 02/26/24 09:00 02/26/24 08:30 Acetaminophen Tab 325 Mg Tab PO 650 mg BID JENNIFER Administration Hydrocodone Bitart/Acetaminophen 1 each 02/26/24 06:04 02/26/24 06:31 Hydrocodone/Apap 10-325mg 1 Each Tab PO 1 each BID PRN Administration Moderate to Severe Pain (4-10) Albuterol Sulfate 2.5 mg 02/26/24 06:14 Albuterol Nebulized 2.5 Mg/3 Ml INHALATION RT-Q6H PRN Shortness Of Breath Albuterol/Ipratropium 3 ml 02/26/24 08:00 02/26/24 11:22 Ipratropium-Albuterol 3 Ml Neb INHALATION Not Given RT-QID JENNIFER Ascorbic Acid 1,000 mg 02/26/24 09:00 02/26/24 08:29 Ascorbic Acid 500 Mg Tab PO 1,000 mg DAILY JENNIFER Administration Aspirin 81 mg 02/26/24 09:00 02/26/24 08:30 Aspirin 81 Mg PO 81 mg DAILY JENNIFER Administration Atorvastatin Calcium 20 mg 02/26/24 21:00 Atorvastatin 20 Mg Tab PO HS JENNIFER Bupropion HCl 150 mg 02/26/24 09:00 02/26/24 08:31 Bupropion Sr 150 Mg Tablet.Er PO 150 mg Q12HR JENNIFER Administration Cholecalciferol 50 mcg 02/26/24 09:00 02/26/24 08:29 Cholecalciferol 25 Mcg (1000 Iu) Tablet PO 50 mcg DAILY JENNIFER Administration Cyanocobalamin 1,000 mcg 02/26/24 09:00 02/26/24 08:31 Cyanocobalamin 500 Mcg Tab PO 1,000 mcg DAILY JENNIFER Administration Donepezil HCl 10 mg 02/26/24 21:00 Donepezil 10 Mg Tab PO HS JENNIFER Ferrous Sulfate 325 mg 02/26/24 09:00 02/26/24 08:31 Ferrous Sulfate 325 Mg Tab PO 325 mg BID JENNIFER Administration Fluoxetine HCl 40 mg 02/26/24 09:00 02/26/24 08:29 Fluoxetine Hcl 20 Mg Cap PO 40 mg DAILY JENNIFER Administration Heparin Sodium (Porcine) 5,000 unit 02/26/24 00:00 02/26/24 08:32 Heparin Sodium,Porcine 5,000 Unit/Ml 1 Ml Vial SQ 5,000 unit Q8HR JENNIFER Administration Ceftriaxone Sodium 1 gm/ 50 mls @ 100 mls/hr 02/26/24 09:00 02/26/24 08:31 Sodium Chloride IVPB 100 mls/hr Q24HR JENNIFER Administration Protocol Levothyroxine Sodium 75 mcg 02/26/24 06:30 02/26/24 06:31 Levothyroxine 75 Mcg Tab PO 75 mcg DAILY@0630 JENNIFER Administration Losartan Potassium 25 mg 02/26/24 09:00 02/26/24 08:30 Losartan 25 Mg Tab PO 25 mg DAILY JENNIFER Administration Memantine 5 mg 02/26/24 09:00 02/26/24 08:30 Memantine 5 Mg Tab PO 5 mg BID JENNIFER Administration Multivitamins 1 each 02/26/24 09:00 02/26/24 08:29 Multivitamins, Thera 1 Each Tab PO 1 each DAILY JENNIFER Administration Naloxone HCl 0.2 mg 02/25/24 20:26 Naloxone 0.4 Mg/Ml 1 Ml Vial IV Q2M PRN Opioid Reversal Ondansetron HCl 4 mg 02/25/24 20:26 Ondansetron 4 Mg/2 Ml Vial IVP Q8HR PRN Nausea And Vomiting Oxybutynin Chloride 5 mg 02/26/24 09:00 02/26/24 08:29 Oxybutynin Chloride 5 Mg Tab PO 5 mg DAILY JENNIFER Administration Pantoprazole Sodium 40 mg 02/26/24 07:30 02/26/24 08:30 Pantoprazole 40 Mg Tablet PO 40 mg [id number] JENNIFER Administration Pregabalin 200 mg 02/26/24 09:00 02/26/24 08:28 Pregabalin 100 Mg Cap PO 200 mg TID JENNIFER Administration Intake and Output 02/25/24 02/26/24 02/26/24 22:59 06:59 14:59 Intake Total 440 Output Total 400 Balance 40 Intake: Oral 440 Output: Urine 400 Other: Voiding Method External Catheter Bedpan External Catheter # Voids 2 # Bowel Movements 1 Weight 101.151 kg 101.151 kg 02/26/24 05:43 02/26/24 05:36
--- NOTE | 2024-02-26 13:42 | P.HPIM ---
History of Present Illness H&P Date: 02/26/24 History of present illness; Patient is 71-year-old female with COPD, GERD, hyperlipidemia, hypertension, thyroid disorder, Alzheimers who presents with weakness. Her symptoms began Friday and have progressed to a point where she states she cannot stand by herself. Pacemaker placed 1 week ago and she is concerned for infection due to some soreness at site of pacemaker placement. She also has stated a long history of urinary incontinence for which she uses adult diapers and bedpan at baseline. She endorses chronic cough with some shortness of breath. Which she states is at her baseline. Patient reports absence of fever, chills, chest pain, palpitations, diaphoresis, abdominal pain, and dysuria. Overnight patient states she was disoriented and had 1 episode of urinary incontinence. She has no other complaints today. Labs in ER unremarkable for leukocytosis 14.2, sodium 135, BUN 29, creatinine 1.46, glucose 134, AST 47, ALP 134, troponin 0.021, UA significant for cloudy appearance, protein 2+, blood moderate, leukocyte esterase large, RBC 13, WBC> 182 with bacteria, viral panel negative UDS positive for benzodiazepine. EKG done in the ER independently interpreted showed heart rate of 88, no ST segment elevation or depression seen, no T-wave inversions seen. Chest x-ray done independently interpreted in the ER showed no acute process. Air noted in right upper quadrant likely loops of bowel. CT chest abdomen pelvis with contrast done independently interpreted showed no suspicious changes for acute pneumoperitoneum, some air present within colon anterior to the liver. Multiple bilateral renal cysts, small area of increased density in anterior peripheral right lung. Spoke with the ER physician, patient admission was accepted by internal medicine service for treatment. REVIEW OF SYSTEMS: Pertinent positives and negatives noted in HPI. PHYSICAL EXAMINATION: Vitals reviewed GENERAL: No acute distress. Well developed, well nourished. Obese HEENT: Pupils are round and equally reacting to light. EOMI. No scleral icterus. Normocephalic, atraumatic. CARDIOVASCULAR: S1 and S2 present. No murmurs, rubs, or gallops. PULMONARY: Diminished air movement bilaterally, no wheezing, rhonchi, or crackles. ABDOMEN: Soft, nontender, nondistended, normoactive bowel sounds. No palpable organomegaly. MUSCULOSKELETAL: No apparent joint swelling and deformities. EXTREMITIES: No apparent cyanosis, clubbing, or pedal edema. NEUROLOGICAL: The patient is alert and oriented x3, Gross neurological examination did not reveal any focal deficits. SKIN: No apparent rashes. Assessment and plan Patient is 71-year-old female with COPD, GERD, hyperlipidemia, hypertension, thyroid disorder, Alzheimers, who is treated for UTI, and JUSTIN. # Urinary tract infection #Leukocytosis # Lower extremity weakness #JUSTIN likely due to dehydration - UA with significant leukocyte esterase Continue Rocephin 1 g daily Continue IV NS at 75 mL/h PT OT evaluation pending Monitor BMP #Sick sinus syndrome, with permanent dual-chamber pacemaker implantation 1129- 24 #Chest wall tenderness at pacemaker insertion site No sign of infection Continue monitor # COPD not in acute exacerbation Begin DuoNeb, Ventolin Given Solu-Medrol CT chest with increased density in anterior peripheral right lung Continue to monitor Chronic Medical Conditions # Essential hypertension - Resume home Losartan #Hyperlidemia - Resume home simvastatin #Alzheimer's Restart home meds #Hypothyroidism - Resume home Synthroid #GERD - Resume home Pantoprazole #Anxiety/Depression - Resume home bupropion, fluoxetine F: IV Normal saline 75 mL/hr E: Replete as needed N: Heart healthy diet DVT ppx: Subq heparin every 8 hours Code status: Full code Anticipated discharge place: Subacute rehab Anticipated discharge time: 3 to 4 days Dictation was produced using [employer] dictation software. Please excuse any gra mmatical, word or spelling errors. Past Medical History Past Medical History: COPD, GERD/Reflux, Hyperlipidemia, Hypertension, Memory Impairment, Osteoarthritis (OA), Thyroid Disorder Additional Past Medical History / Comment(s): urinary incontinence, crushed tailbone, herniated discs History of Any Multi-Drug Resistant Organisms: None Reported Past Surgical History: Appendectomy, Section, Heart Catheterization, Pacemaker Additional Past Surgical History / Comment(s): NECK FUSION, colonoscopy Past Anesthesia/Blood Transfusion Reactions: No Reported Reaction, Motion Sickness Type of Cardiac Device: Unknown Device Placement Date:: 02/13/24 Past Psychological History: Anxiety, Depression Smoking Status: Former smoker Past Alcohol Use History: Rare Additional Past Alcohol Use History / Comment(s): STARTED SMOKING AT AGE 18- SMOKES <1/2PPD Past Drug Use History: None Reported Additional Drug Use History / Comment(s): quit smoking 2023. - Past Family History Mother Family Medical History: Cancer Father Family Medical History: Cancer Additional Family Medical History / Comment(s): PROSTATE Brother(s) Family Medical History: Cancer Additional Family Medical History / Comment(s): ESOPHAGUS CANCER Sister(s) Family Medical History: Cancer Additional Family Medical History / Comment(s): BREAST Medications and Allergies Home Medications Medication Instructions Recorded Confirmed Type Simvastatin [Zocor] 40 mg PO HS 08/29/15 02/25/24 History oxyBUTYnin chloride [Ditropan] 5 mg PO DAILY 08/29/15 02/25/24 History Acetaminophen [Tylenol Arthritis] 650 mg PO BID 10/24/15 02/25/24 History Aspirin EC [Ecotrin Low Dose] 81 mg PO DAILY 10/24/15 02/25/24 History Donepezil HCl [Aricept] 10 mg PO HS 10/17/21 02/25/24 History Omeprazole 20 mg PO DAILY 10/17/21 02/25/24 History buPROPion HCL [buPROPion HCL SR] 150 mg PO Q12HR 10/17/21 02/25/24 History Albuterol Inhaler [Ventolin Hfa 2 puff INHALATION RT-Q6H PRN 02/10/24 02/25/24 H istory Inhaler] Ascorbic Acid [Vitamin C] 1,000 mg PO DAILY 02/10/24 02/25/24 History Cholecalciferol [Vitamin D3 (25 50 mcg PO DAILY 02/10/24 02/25/24 History Mcg = 1000 Iu)] Cyanocobalamin (Vitamin B-12) 1,000 mcg PO DAILY 02/10/24 02/25/24 History [Vitamin B-12] FLUoxetine HCL 40 mg PO DAILY 02/10/24 02/25/24 History Ferrous Sulfate [Iron (65 MG 325 mg PO BID 02/10/24 02/25/24 History Elemental)] HYDROcodone/APAP 10-325MG [[place] 1 tab PO BID PRN 02/10/24 02/25/24 History 10-325] Memantine [Namenda] 5 mg PO BID 02/10/24 02/25/24 History Multivitamins, Thera [Multivitamin 1 tab PO DAILY 02/10/24 02/25/24 History (formulary)] Naloxone HCl [Narcan] 4 mg NASAL ONCE PRN 02/10/24 02/25/24 History Pregabalin [Lyrica] 200 mg PO TID 02/10/24 02/25/24 History Losartan [Cozaar] 25 mg PO DAILY #90 tab 02/13/24 02/25/24 Rx Levothyroxine Sodium [Synthroid] 75 mcg PO DAILY 02/25/24 02/25/24 History Allergies Allergy/AdvReac Type Severity Reaction Status Date / Time Penicillins Allergy Rash/Hives Verified 02/25/24 20:33 venom-honey bee Allergy Swelling Verified 02/25/24 20:33 [bee venom (honey bee)] Physical Exam Vitals: Vital Signs Temp Pulse Pulse Resp BP BP Pulse Ox 02/26/24 07:58 60 02/26/24 07:50 56 L 94 L 02/26/24 07:21 97.8 F 56 L 18 144/63 94 L 02/26/24 02:00 98.0 F 62 14 148/72 95 02/26/24 00:34 98.0 F 62 12 130/72 93 L 02/25/24 22:39 98.2 F 68 18 136/68 94 L 02/25/24 19:54 72 18 136/85 95 02/25/24 18:53 65 02/25/24 18:44 76 02/25/24 17:15 99.4 F 59 L 20 115/74 92 L 02/25/24 16:16 99.3 F 65 20 109/69 91 L FiO2 02/26/24 07:58 02/26/24 07:50 21 02/26/24 07:21 02/26/24 02:00 02/26/24 00:34 02/25/24 22:39 02/25/24 19:54 02/25/24 18:53 02/25/24 18:44 02/25/24 17:15 02/25/24 16:16 Intake and Output 02/25/24 02/26/24 02/26/24 22:59 06:59 14:59 Intake Total 440 Output Total 400 Balance 40 Intake: Oral 440 Output: Urine 400 Other: Voiding Method External Catheter Weight 101.151 kg 101.151 kg Results CBC & Chem 7: 02/26/24 05:43 02/26/24 05:36 Labs: Abnormal Lab Results - Last 24 Hours (Table) 02/25/24 02/25/24 02/25/24 Range/Units 17:17 17:17 17:17 WBC 14.2 H (3.8-10.6) k/uL Neutrophils # 12.7 H (1.3-7.7) k/uL Lymphocytes # 0.5 L (1.0-4.8) k/uL Sodium 135 L (137-145) mmol/L BUN 29 H (7-17) mg/dL Creatinine 1.46 H (0.52-1.04) mg/dL Glucose 134 H (74-99) mg/dL AST 47 H (14-36) U/L Alkaline Phosphatase 134 H (38-126) U/L Urine Appearance (Clear) Urine Protein (Negative) Urine Blood (Negative) Ur Leukocyte Esterase (Negative) Urine RBC (0-5) /hpf Urine WBC (0-5) /hpf Urine Bacteria (None) /hpf Urine Mucus (None) /hpf Urine Opiates Screen Detected H (NotDetected) U Benzodiazepines Scrn Detected H (NotDetected) 02/25/24 Range/Units 17:17 WBC (3.8-10.6) k/uL Neutrophils # (1.3-7.7) k/uL Lymphocytes # (1.0-4.8) k/uL Sodium (137-145) mmol/L BUN (7-17) mg/dL Creatinine (0.52-1.04) mg/dL Glucose (74-99) mg/dL AST (14-36) U/L Alkaline Phosphatase (38-126) U/L Urine Appearance Cloudy H (Clear) Urine Protein 2+ H (Negative) Urine Blood Moderate H (Negative) Ur Leukocyte Esterase Large H (Negative) Urine RBC 13 H (0-5) /hpf Urine WBC >182 H (0-5) /hpf Urine Bacteria Few H (None) /hpf Urine Mucus Rare H (None) /hpf Urine Opiates Screen (NotDetected) U Benzodiazepines Scrn (NotDetected) Thrombosis Risk Factor Assmnt - Choose All That Apply Any of the Below Risk Factors Present?: No Other Risk Factors: Yes Each Risk Factor Represents 2 Points: Age 61-74 years Other congenital or acquired thrombophilia - If yes, enter type in comment: No Thrombosis Risk Factor Assessment Total Risk Factor Score: 2 Thrombosis Risk Factor Assessment Level: Low Risk
[2024-02-26 15:38] VITALS: BMI 39.4
[2024-02-26] MEDS: ATORVASTATIN 20 MG TAB PO SCH (20:42)
[2024-02-26] MEDS: DONEPEZIL 10 MG TAB PO SCH (20:43)
[2024-02-27] MEDS: MELATONIN 5 MG TABLET PO SCH (00:52)
[2024-02-27 10:22] LABS: ALT 93 U/L (4-34); African American GFR (CKD) 56 (>60 ml/min/1.73 sqM); Albumin/Globulin Ratio 1.1; Anion Gap 10 mmol/L; Blood Urea Nitrogen 29 mg/dL (7-17); Calcium 9.2 mg/dL (8.4-10.2); Carbon Dioxide 22 mmol/L (22-30); Chloride 103 mmol/L (98-107); Globulin 3.6 g/dL; Non-African American GFR(CKD) 48 (>60 ml/min/1.73 sqM); Sodium 135 mmol/L (137-145)
[2024-02-27 10:27] LABS: AST 134 U/L (14-36); Albumin 3.9 g/dL (3.5-5.0); Alkaline Phosphatase 96 U/L (38-126); Glucose 139 mg/dL (74-99); Potassium 5.6 mmol/L (3.5-5.1); Total Bilirubin 0.9 mg/dL (0.2-1.3); Total Protein 7.5 g/dL (6.3-8.2)
[2024-02-27 10:32] LABS: Basophils # (A) 0.1 k/uL (0-0.2); Basophils % (A) 1 %; Eosinophils % (A) 0 %; HCT 41.5 % (34.0-46.0); HGB 12.5 gm/dL (11.4-16.0); Hypochromasia Marked; Lymphocytes # (A) 0.7 k/uL (1.0-4.8); Lymphocytes % (A) 6 %; MCH 31.5 pg (25.0-35.0); MCHC 30.2 g/dL (31.0-37.0); Macrocytosis Slight; Mean Platelet Volume 9.3; Monocytes # (A) 0.5 k/uL (0-1.0); Monocytes % (A) 4 %; Neutrophils # (A) 11.2 k/uL (1.3-7.7); Neutrophils % (A) 88 %; Platelet Count 212 k/uL (150-450); RBC 3.98 m/uL (3.80-5.40); RDW 13.7 % (11.5-15.5); WBC 12.8 k/uL (3.8-10.6)
[2024-02-27 10:34] LABS: MCV 104.4 fL (80.0-100.0)
[2024-02-27] MEDS: SODIUM ZIRCONIUM CYCLOSILICATE 10 GM PACKET PO ONE (12:22)
--- NOTE | 2024-02-27 16:32 | P.PN ---
Subjective Progress Note Date: 02/27/24 Patient is 71-year-old female with COPD, GERD, hyperlipidemia, hypertension, thyroid disorder, Alzheimers who presents with weakness. Her symptoms began Friday and have progressed to a point where she states she cannot stand by herself. Pacemaker placed 1 week ago and she is concerned for infection due to some soreness at site of pacemaker placement. She also has stated a long history of urinary incontinence for which she uses adult diapers and bedpan at baseline. She endorses chronic cough with some shortness of breath. Which she states is at her baseline. Patient reports absence of fever, chills, chest pain, palpitations, diaphoresis, abdominal pain, and dysuria. Overnight patient states she was disoriented and had 1 episode of urinary incontinence. She has no other complaints today. Labs in ER unremarkable for leukocytosis 14.2, sodium 135, BUN 29, creatinine 1.46, glucose 134, AST 47, ALP 134, troponin 0.021, UA significant for cloudy appearance, protein 2+, blood moderate, leukocyte esterase large, RBC 13, WBC> 182 with bacteria, viral panel negative UDS positive for benzodiazepine. EKG done in the ER independently interpreted showed heart rate of 88, no ST segment elevation or depression seen, no T-wave inversions seen. Chest x-ray done independently interpreted in the ER showed no acute process. Air noted in right upper quadrant likely loops of bowel. CT chest abdomen pelvis with contrast done independently interpreted showed no suspicious changes for acute pneumoperitoneum, some air present within colon anterior to the liver. Multiple bilateral renal cysts, small area of increased density in anterior peripheral right lung. 02/27/2024 Patient seen and examined at bedside. No acute events overnight. She remains afebrile. She continues to endorse lower abdominal pain. She also states her urination is improving. She continues on Rocephin 1 g daily. PT suggesting subacute rehab will continue to follow her. WBC remains stable. Today's labs WBC 12.8, hemoglobin 12.5, MCV 104.4, sodium 135, potassium 5.6, BUN 29, creatinine 1.14, glucose 139, AST 134, ALT 93. REVIEW OF SYSTEMS: Pertinent positives and negatives noted in HPI. PHYSICAL EXAMINATION: Vitals reviewed GENERAL: No acute distress. Well developed, well nourished. Obese HEENT: Pupils are round and equally reacting to light. EOMI. No scleral icterus. Normocephalic, atraumatic. CARDIOVASCULAR: S1 and S2 present. No murmurs, rubs, or gallops. PULMONARY: Diminished air movement bilaterally, no wheezing, rhonchi, or crackles. ABDOMEN: Soft, nontender, nondistended, normoactive bowel sounds. No palpable organomegaly. MUSCULOSKELETAL: No apparent joint swelling and deformities. EXTREMITIES: No apparent cyanosis, clubbing, or pedal edema. NEUROLOGICAL: The patient is alert and oriented x3, Gross neurological examination did not reveal any focal deficits. SKIN: No apparent rashes. Assessment and plan Patient is 71-year-old female with COPD, GERD, hyperlipidemia, hypertension, thyroid disorder, Alzheimers, who is treated for UTI, and JUSTIN. # Urinary tract infection #Leukocytosis # Lower extremity weakness #JUSTIN likely due to dehydration - UA with significant leukocyte esterase Continue Rocephin 1 g daily PT OT following Monitor BMP #Hyperkalemia Potassium 5.6 Given Lokelma Discontinued losartan Monitor CMP #Sick sinus syndrome, with permanent dual-chamber pacemaker implantation #Chest wall tenderness at pacemaker insertion site No sign of infection Continue monitor # COPD not in acute exacerbation Begin DuoNeb, Ventolin Given Solu-Medrol CT chest with increased density in anterior peripheral right lung Continue to monitor Chronic Medical Conditions # Essential hypertension - Resume home Losartan #Hyperlidemia - Resume home simvastatin #Alzheimer's Restart home meds #Hypothyroidism - Resume home Synthroid #GERD - Resume home Pantoprazole #Anxiety/Depression - Resume home bupropion, fluoxetine F: P.o. E: Replete as needed N: Heart healthy diet DVT ppx: Subq heparin every 8 hours Code status: Full code Anticipated discharge place: Subacute rehab Anticipated discharge time: 3 to 4 days Dictation was produced using [employer] dictation software. Please excuse any grammatical, word or spelling errors. Attestation I have seen and examined this patient with my resident , discussed the same with the resident/JOSE, and agree with the dictator's assessment and plan as written Dr. Cristian talbret Objective - Vital Signs Vital signs: Vital Signs Temp 98.0 F 02/27/24 13:12 Pulse 71 02/27/24 13:12 Resp 17 02/27/24 13:12 BP 150/75 02/27/24 13:12 Pulse Ox 98 02/27/24 13:12 FiO2 21 02/26/24 07:50 Intake & Output 02/26/24 02/27/24 02/27/24 18:59 06:59 18:59 Intake Total 360 220 240 Output Total 200 Balance 160 220 240 Weight 101.151 kg Intake: Intake, IV Titration 220 Amount Sodium Chloride 0.9% 1, 220 000 ml @ 75 mls/hr IV . [id number] STA Rx#:[id number] Oral 360 240 Output: Urine 200 Other: Voiding Method Bedpan Bedside Commode Bedside Commode External Catheter Bedpan Bedpan # Voids 3 2 # Bowel Movements 1 - Labs CBC & Chem 7: 02/28/24 05:17 02/28/24 05:17 Labs: Abnormal Lab Results - Last 24 Hours (Table) 02/27/24 02/27/24 Range/Units 09:46 09:46 WBC 12.8 H (3.8-10.6) k/uL MCV 104.4 H D (80.0-100.0) fL MCHC 30.2 L (31.0-37.0) g/dL Neutrophils # 11.2 H (1.3-7.7) k/uL Lymphocytes # 0.7 L (1.0-4.8) k/uL Sodium 135 L (137-145) mmol/L Potassium 5.6 H (3.5-5.1) mmol/L BUN 29 H (7-17) mg/dL Creatinine 1.14 H (0.52-1.04) mg/dL Glucose 139 H (74-99) mg/dL AST 134 H (14-36) U/L ALT 93 H (4-34) U/L
--- NOTE | 2024-02-28 09:12 | P.PN ---
Subjective Progress Note Date: 02/28/24 This is Malik Webb NP, I'm dictating on behalf of Dr. García's H&P and A&P. Patient was interviewed and examined. Patient is a pleasant 73-year-old female who presented to the hospital with lower extremity weakness and lower abdominal pain. We were consulted secondary to recent placement of a pacemaker. Patient reports that she still having some abdominal discomfort today. Blood cultures were taken yesterday and sent, results are still pending. Patient continues to appreciate some lower abdominal pain. She is on ceftriaxone per primary team and appears to be tolerating this well. The pacemaker incision site is evaluated today, and appears intact and well-approximated with no signs or symptoms of infection. GENERAL: Well-appearing, well-nourished and in no acute distress. NECK: Supple without JVD or thyromegaly. LUNGS: Breath sounds clear to auscultation bilaterally. Respiration equal and unlabored. No wheezes, rales or rhonchi. HEART: Regular rate and rhythm without murmurs, rubs or gallops. S1 and S2 heard. EXTREMITIES: Normal range of motion, no edema. No clubbing or cyanosis. Peripheral pulses intact and strong. VITALS: Temp 98.4, pulse 81, respirations 17, blood pressure 138/71, O2 saturation 93% on room air TELEMETRY: Patient is not on telemetry. LABS: White count 12.8, hemoglobin 12.5, platelets 212, sodium 135, potassium 4.6, BUN 29, creatinine 1.14 IMPRESSION: 1. Urinary tract infection 2. Sick sinus syndrome status post permanent dual-chamber pacemaker implantation 02/12 3. Lower extremity weakness 4. Hypertension 5. Hypothyroidism 6. Dyslipidemia 7. Dementia 8. Depression 9. Chronic musculoskeletal pain PLAN: Continue home cardiac medications. Blood cultures are pending, would wait for results before discharging patient. Lightly dressed pacemaker site to prevent food from contaminating the area. Further recommendations based on patient's clinical course. Objective - Vital Signs Vital signs: Vital Signs Temp 98.4 F 02/28/24 07:47 Pulse 81 02/28/24 07:47 Resp 17 02/28/24 07:47 BP 138/71 02/28/24 07:47 Pulse Ox 93 L 02/28/24 07:47 FiO2 21 12/12/24 07:50 Intake & Output 02/27/24 02/28/24 02/28/24 18:59 06:59 18:59 Intake Total 240 Balance 240 Intake: Oral 240 Other: Voiding Method Bedside Commode Bedside Commode Bedpan # Voids 4 3 1 - Labs CBC & Chem 7: 02/27/24 09:46 02/27/24 16:59 Labs: Abnormal Lab Results - Last 24 Hours (Table) 02/27/24 02/27/24 Range/Units 09:46 09:46 WBC 12.8 H (3.8-10.6) k/uL MCV 104.4 H D (80.0-100.0) fL MCHC 30.2 L (31.0-37.0) g/dL Neutrophils # 11.2 H (1.3-7.7) k/uL Lymphocytes # 0.7 L (1.0-4.8) k/uL Sodium 135 L (137-145) mmol/L Potassium 5.6 H (3.5-5.1) mmol/L BUN 29 H (7-17) mg/dL Creatinine 1.14 H (0.52-1.04) mg/dL Glucose 139 H (74-99) mg/dL AST 134 H (14-36) U/L ALT 93 H (4-34) U/L
[2024-02-28 09:47] LABS: ALT 77 U/L (8-44); AST 55 U/L (13-35); Albumin 3.5 g/dL (3.8-4.9); Alkaline Phosphatase 112 U/L (41-126); BUN/Creat Ratio 20.85 Ratio (12.00-20.00); Blood Urea Nitrogen 27.1 mg/dL (9.0-27.0); Calcium 9.1 mg/dL (8.7-10.3); Carbon Dioxide 24.5 mmol/L (21.6-31.8); Chloride 104 mmol/L (96-109); Globulin 2.7 g/dL (1.6-3.3); Glucose 81 mg/dL (70-110); Potassium 5.1 mmol/L (3.5-5.5); Sodium 138 mmol/L (135-145); Total Bilirubin <0.2 mg/dL (0.3-1.2); Total Protein 6.2 g/dL (6.2-8.2)
[2024-02-28 12:27] LABS: Basophils # (A) 0.05 X 10*3/uL (0.00-0.10); Basophils % (A) 0.5 %; Eosinophils # (A) 0.33 X 10*3/uL (0.04-0.35); Eosinophils % (A) 3.4 %; HCT 36.5 % (37.2-46.3); HGB 11.2 g/dL (12.0-15.0); Lymphocytes # (A) 1.24 X 10*3/uL (0.90-5.00); Lymphocytes % (A) 12.9 %; MCH 29.9 pg (27.0-32.0); MCHC 30.7 g/dL (32.0-37.0); MCV 97.6 FL (80.0-97.0); Mean Platelet Volume 11.7 FL (9.5-12.2); Monocytes # (A) 1.29 X 10*3/uL (0.20-1.00); Monocytes % (A) 13.4 %; NRBC Per 100 WBC 0 X 10*3/uL (0.00-0.01); Neutrophils # (A) 6.57 X 10*3/uL (1.80-7.70); Neutrophils % (A) 68.3 %; Platelet Count 259 X 10*3/uL (140-440); RBC 3.74 X 10*6/uL (4.10-5.20); RDW 14.4 % (11.5-14.5); WBC 9.62 X 10*3/uL (4.50-10.00)
--- NOTE | 2024-02-28 14:43 | XR ---
EXAMINATION TYPE: XR abdomen acute w cxr DATE OF EXAM: 02/28/2024 2:23 PM CLINICAL INDICATION: Female, 73 years old with history of abdo pain; [facility] COMPARISON: Chest radiograph 02/25/2024. TECHNIQUE: Two radiographic views of the abdomen (upright and supine) and a frontal chest radiograph were obtained. FINDINGS CHEST: Cardiomegaly. Left chest wall cardiac pacemaker device with leads overlying the right and right ventricle. Possible mild pulmonary vascular congestion versus technique-related due to low lung volumes. No siza ble pleural effusion. No pneumothorax. No acute focal consolidation. Nonobstructive bowel gas pattern. No obvious evidence of free air/pneumoperitoneum. Moderate diffuse colonic stool burden. Lumbosacral spine degenerative changes. IMPRESSION: 1. Cardiomegaly and possible mild pulmonary vascular congestive changes. 2. Nonobstructive bowel gas pattern. No evidence of free air. [facility], , 02/28/2024 2:40 PM
--- NOTE | 2024-02-28 18:08 | P.PN ---
Subjective Progress Note Date: 02/28/24 Patient is 71-year-old female with COPD, GERD, hyperlipidemia, hypertension, thyroid disorder, Alzheimers who presents with weakness. Her symptoms began Friday and have progressed to a point where she states she cannot stand by herself. Pacemaker placed 1 week ago and she is concerned for infection due to some soreness at site of pacemaker placement. She also has stated a long history of urinary incontinence for which she uses adult diapers and bedpan at baseline. She endorses chronic cough with some shortness of breath. Which she states is at her baseline. Patient reports absence of fever, chills, chest pain, palpitations, diaphoresis, abdominal pain, and dysuria. Overnight patient states she was disoriented and had 1 episode of urinary incontinence. She has no other complaints today. Labs in ER unremarkable for leukocytosis 14.2, sodium 135, BUN 29, creatinine 1.46, glucose 134, AST 47, ALP 134, troponin 0.021, UA significant for cloudy appearance, protein 2+, blood moderate, leukocyte esterase large, RBC 13, WBC> 182 with bacteria, viral panel negative UDS positive for benzodiazepine. EKG done in the ER independently interpreted showed heart rate of 88, no ST segment elevation or depression seen, no T-wave inversions seen. Chest x-ray done independently interpreted in the ER showed no acute process. Air noted in right upper quadrant likely loops of bowel. CT chest abdomen pelvis with contrast done independently interpreted showed no suspicious changes for acute pneumoperitoneum, some air present within colon anterior to the liver. Multiple bilateral renal cysts, small area of increased density in anterior peripheral right lung. 02/27/2024 Patient seen and examined at bedside. No acute events overnight. She remains afebrile. She continues to endorse lower abdominal pain. She also states her urination is improving. She continues on Rocephin 1 g daily. PT suggesting subacute rehab will continue to follow her. WBC remains stable. Today's labs WBC 12.8, hemoglobin 12.5, MCV 104.4, sodium 135, potassium 5.6, BUN 29, creatinine 1.14, glucose 139, AST 134, ALT 93. 02/28/2024 Patient seen and examined sitting up in chair. No events overnight. Patient states that her lower abdominal pain has worsened. No bowel movement today. She continues on Rocephin 1 g daily. Blood cultures pending. Leukocytosis improved. Mild cough. Chest/abdominal series significant for cardiomegaly and possible mild pulmonary vascular congestion, no obstructive bowel gas pattern or chest consolidation. Labs WBC 9.62, sodium 138, potassium 5.1, BUN 27.1, creatinine 1.3, AST 55 ALT 77. Procalcitonin 0.47. REVIEW OF SYSTEMS: Pertinent positives and negatives noted in HPI. PHYSICAL EXAMINATION: Vitals reviewed GENERAL: No acute distress. Well developed, well nourished. Obese HEENT: Pupils are round and equally reacting to light. EOMI. No scleral icterus. Normocephalic, atraumatic. CARDIOVASCULAR: S1 and S2 present. No murmurs, rubs, or gallops. PULMONARY: Diminished air movement bilaterally, no wheezing, rhonchi, or crackles. ABDOMEN: Soft, nontender, nondistended, normoactive bowel sounds. No palpable organomegaly. MUSCULOSKELETAL: No apparent joint swelling and deformities. EXTREMITIES: No apparent cyanosis, clubbing, or pedal edema. NEUROLOGICAL: The patient is alert and oriented x3, Gross neurological examination did not reveal any focal deficits. SKIN: No apparent rashes. Assessment and plan Patient is 71-year-old female with COPD, GERD, hyperlipidemia, hypertension, thyroid disorder, Alzheimers, who is treated for UTI, and JUSTIN. # Urinary tract infection #Leukocytosis, resolved #JUSTIN likely due to dehydration, resolved - UA with significant leukocyte esterase Continue Rocephin 1 g daily Blood cultures pending Monitor CBC and BMP # Lower extremity weakness PT OT following #Constipation with lower abdominal pain Abdominal series with no obstruction or free air, moderate stool burden Given lactulose 20 3 times daily Given Bentyl 10 g 3 times daily as needed #Sick sinus syndrome, with permanent dual-chamber pacemaker implantation #Chest wall tenderness at pacemaker insertion site No sign of infection Continue monitor #Hyperkalemia, resolved Potassium 5.6 Given Lokelma Discontinued losartan Monitor CMP # COPD not in acute exacerbation Begin DuoNeb, Ventolin Given Solu-Medrol CT chest with increased density in anterior peripheral right lung - Procalcitonin 0.47 WNL Continue to monitor Chronic Medical Conditions # Essential hypertension - Resume home Losartan #Hyperlidemia - Resume home simvastatin #Alzheimer's Restart home meds #Hypothyroidism - Resume home Synthroid #GERD - Resume home Pantoprazole #Anxiety/Depression - Resume home bupropion, fluoxetine F: P.o. E: Replete as needed N: Heart healthy diet DVT ppx: Subq heparin every 8 hours Code status: Full code Anticipated discharge place: Pending clinical course Anticipated discharge time: 3 to 4 days Dictation was produced using [employer] dictation software. Please excuse any grammatical, word or spelling errors. Attestation I have seen and examined this patient with my resident , discussed the same with the resident/JOSE, and agree with the dictator's assessment and plan as written Dr. Cristian talbert Objective - Vital Signs Vital signs: Vital Signs Temp 97.4 F L 02/28/24 14:27 Pulse 79 02/28/24 14:27 Resp 18 02/28/24 14:27 BP 128/79 02/28/24 14:27 Pulse Ox 94 L 02/28/24 14:27 FiO2 21 02/26/24 07:50 Intake & Output 02/27/24 02/28/24 02/28/24 18:59 06:59 18:59 Intake Total 240 Balance 240 Intake: Oral 240 Other: Voiding Method Bedside Commode Bedside Commode Bedside Commode Bedpan # Voids 4 3 1 - Labs CBC & Chem 7: 02/28/24 05:17 02/28/24 05:17 Labs: Abnormal Lab Results - Last 24 Hours (Table) 02/28/24 02/28/24 Range/Units 05:17 05:17 RBC 3.74 L (4.10-5.20) X 10*6/uL Hgb 11.2 L (12.0-15.0) g/dL Hct 36.5 L (37.2-46.3) % MCV 97.6 H (80.0-97.0) FL MCHC 30.7 L (32.0-37.0) g/dL Immature Gran # 0.14 H (0.00-0.04) X 10*3/uL Monocytes # 1.29 H (0.20-1.00) X 10*3/uL BUN 27.1 H (9.0-27.0) mg/dL Est GFR (CKD-EPI) 44 L (>=60) BUN/Creatinine Ratio 20.85 H (12.00-20.00) Ratio Total Bilirubin <0.2 L (0.3-1.2) mg/dL AST 55 H (13-35) U/L ALT 77 H (8-44) U/L Albumin 3.5 L (3.8-4.9) g/dL Albumin/Globulin Ratio 1.30 L (1.60-3.17) Ratio
[2024-02-28] MEDS: LACTULOSE 20 GM/30 ML CUP PO SCH (18:20)
[2024-02-29] MEDS: DICYCLOMINE 10 MG CAP PO PRN (07:50)
--- NOTE | 2024-02-29 09:41 | P.PN ---
Subjective Progress Note Date: 02/29/24 This is Malik Webb NP, I'm dictating on behalf of Dr. García's H&P and A&P. Patient was interviewed and examined. Patient is a pleasant 73-year-old female who presented to the hospital with UTI, weakness, and dehydration. Patient reports that she is doing okay today. Blood cultures show no growth after 24 hours. The pacemaker site is well-approximated and intact with no signs or symptoms of infection. GENERAL: Well-appearing, well-nourished and in no acute distress. NECK: Supple without JVD or thyromegaly. LUNGS: Breath sounds clear to auscultation bilaterally. Respiration equal and unlabored. No wheezes, rales or rhonchi. HEART: Regular rate and rhythm without murmurs, rubs or gallops. S1 and S2 heard. EXTREMITIES: Normal range of motion, no edema. No clubbing or cyanosis. Peripheral pulses intact and strong. VITALS: Temp 97.3, pulse 82, respirations 16, blood pressure 167/79, O2 saturation 95% on room air TELEMETRY: No telemetry LABS: White count 9.6, hemoglobin 11.2, platelets 259, sodium 138, potassium 5.1, BUN 27, creatinine 1.3 IMPRESSION: 1. Urinary tract infection 2. Sick sinus syndrome status post permanent dual-chamber pacemaker implantation 02/12 3. Lower extremity weakness 4. Hypertension 5. Hypothyroidism 6. Dyslipidemia 7. Dementia 8. Depression 9. Chronic musculoskeletal pain PLAN: May cover pacemaker site with a loose gauze to prevent food or fluids from contaminating the site. Majority of symptoms are likely from urinary tract infection. No further recommendations from a cardiology standpoint. Objective - Vital Signs Vital signs: Vital Signs Temp 97.3 F L 02/29/24 07:42 Pulse 82 02/29/24 07:42 Resp 16 02/29/24 07:42 BP 167/79 02/29/24 07:42 Pulse Ox 95 02/29/24 07:42 FiO2 21 02/26/24 07:50 Intake & Output 02/28/24 02/29/24 02/29/24 18:59 06:59 18:59 Intake Total 590 Balance 590 Intake: Oral 590 Other: Voiding Method Bedside Commode Bedside Commode Bedside Commode # Voids 1 1 1 - Labs CBC & Chem 7: 02/28/24 05:17 02/28/24 05:17 Labs: Abnormal Lab Results - Last 24 Hours (Table) 02/28/24 02/28/24 Range/Units 05:17 05:17 RBC 3.74 L (4.10-5.20) X 10*6/uL Hgb 11.2 L (12.0-15.0) g/dL Hct 36.5 L (37.2-46.3) % MCV 97.6 H (80.0-97.0) FL MCHC 30.7 L (32.0-37.0) g/dL Immature Gran # 0.14 H (0.00-0.04) X 10*3/uL Monocytes # 1.29 H (0.20-1.00) X 10*3/uL BUN 27.1 H (9.0-27.0) mg/dL Est GFR (CKD-EPI) 44 L (>=60) BUN/Creatinine Ratio 20.85 H (12.00-20.00) Ratio Total Bilirubin <0.2 L (0.3-1.2) mg/dL AST 55 H (13-35) U/L ALT 77 H (8-44) U/L Albumin 3.5 L (3.8-4.9) g/dL Albumin/Globulin Ratio 1.30 L (1.60-3.17) Ratio Microbiology - Last 24 Hours (Table) 02/27/24 13:00 Blood Culture - Preliminary Blood 02/27/24 12:52 Blood Culture - Preliminary Blood
[2024-02-29 10:00] LABS: BUN/Creat Ratio 18.33 Ratio (12.00-20.00); Chloride 100 mmol/L (96-109); Glucose 82 mg/dL (70-110); Potassium 4.9 mmol/L (3.5-5.5); Sodium 137 mmol/L (135-145)
[2024-02-29 10:01] LABS: ALT 90 U/L (8-44); AST 73 U/L (13-35); Albumin 3.5 g/dL (3.8-4.9); Albumin/Globulin Ratio 1.21 Ratio (1.60-3.17); Alkaline Phosphatase 141 U/L (41-126); Calcium 9.1 mg/dL (8.7-10.3); Globulin 2.9 g/dL (1.6-3.3); Total Bilirubin <0.2 mg/dL (0.3-1.2); Total Protein 6.4 g/dL (6.2-8.2)
--- NOTE | 2024-02-29 13:05 | P.PN ---
Subjective Progress Note Date: 02/29/24 Patient is 71-year-old female with COPD, GERD, hyperlipidemia, hypertension, thyroid disorder, Alzheimers who presents with weakness. Her symptoms began Friday and have progressed to a point where she states she cannot stand by herself. Pacemaker placed 1 week ago and she is concerned for infection due to some soreness at site of pacemaker placement. She also has stated a long history of urinary incontinence for which she uses adult diapers and bedpan at baseline. She endorses chronic cough with some shortness of breath. Which she states is at her baseline. Patient reports absence of fever, chills, chest pain, palpitations, diaphoresis, abdominal pain, and dysuria. Overnight patient states she was disoriented and had 1 episode of urinary incontinence. She has no other complaints today. Labs in ER unremarkable for leukocytosis 14.2, sodium 135, BUN 29, creatinine 1.46, glucose 134, AST 47, ALP 134, troponin 0.021, UA significant for cloudy appearance, protein 2+, blood moderate, leukocyte esterase large, RBC 13, WBC> 182 with bacteria, viral panel negative UDS positive for benzodiazepine. EKG done in the ER independently interpreted showed heart rate of 88, no ST segment elevation or depression seen, no T-wave inversions seen. Chest x-ray done independently interpreted in the ER showed no acute process. Air noted in right upper quadrant likely loops of bowel. CT chest abdomen pelvis with contrast done independently interpreted showed no suspicious changes for acute pneumoperitoneum, some air present within colon anterior to the liver. Multiple bilateral renal cysts, small area of increased density in anterior peripheral right lung. 02/27/2024 Patient seen and examined at bedside. No acute events overnight. She remains afebrile. She continues to endorse lower abdominal pain. She also states her urination is improving. She continues on Rocephin 1 g daily. PT suggesting subacute rehab will continue to follow her. WBC remains stable. Today's labs WBC 12.8, hemoglobin 12.5, MCV 104.4, sodium 135, potassium 5.6, BUN 29, creatinine 1.14, glucose 139, AST 134, ALT 93. 02/27. Patient seen and examined. States abdominal pain has improved. REVIEW OF SYSTEMS: Pertinent positives and negatives noted in HPI. PHYSICAL EXAMINATION: Vitals reviewed GENERAL: No acute distress. Well developed, well nourished. Obese HEENT: Pupils are round and equally reacting to light. EOMI. No scleral icterus. Normocephalic, atraumatic. CARDIOVASCULAR: S1 and S2 present. No murmurs, rubs, or gallops. PULMONARY: Diminished air movement bilaterally, no wheezing, rhonchi, or crackles. ABDOMEN: Soft, nontender, nondistended, normoactive bowel sounds. No palpable organomegaly. MUSCULOSKELETAL: No apparent joint swelling and deformities. EXTREMITIES: No apparent cyanosis, clubbing, or pedal edema. NEUROLOGICAL: The patient is alert and oriented x3, Gross neurological examination did not reveal any focal deficits. SKIN: No apparent rashes. Assessment and plan Patient is 71-year-old female with COPD, GERD, hyperlipidemia, hypertension, thyroid disorder, Alzheimers, who is treated for UTI, and JUSTIN. # Urinary tract infection #Leukocytosis # Lower extremity weakness #JUSTIN likely due to dehydration - UA with significant leukocyte esterase Continue Rocephin 1 g daily PT OT following Monitor BMP #Hyperkalemia Monitor BMP, hyperkalemia resolved #Sick sinus syndrome, with permanent dual-chamber pacemaker implantation #Chest wall tenderness at pacemaker insertion site No sign of infection Continue monitor Cardiology signed off # COPD not in acute exacerbation Begin DuoNeb, Ventolin Given Solu-Medrol CT chest with increased density in anterior peripheral right lung Continue to monitor Chronic Medical Conditions # Essential hypertension - Resume home Losartan #Hyperlidemia - Resume home simvastatin #Alzheimer's Restart home meds #Hypothyroidism - Resume home Synthroid #GERD - Resume home Pantoprazole #Anxiety/Depression - Resume home bupropion, fluoxetine F: P.o. E: Replete as needed N: Heart healthy diet DVT ppx: Subq heparin every 8 hours Code status: Full code Anticipated discharge place: Subacute rehab Anticipated discharge time:1days Dictation was produced using [employer] dictation software. Please excuse any grammatical, word or spelling errors. Objective - Vital Signs Vital signs: Vital Signs Temp 97.3 F L 02/29/24 07:42 Pulse 70 02/29/24 11:32 Resp 16 02/29/24 07:42 BP 167/79 02/29/24 07:42 Pulse Ox 95 02/29/24 07:42 FiO2 21 02/26/24 07:50 Intake & Output 02/28/24 02/29/24 02/29/24 18:59 06:59 18:59 Intake Total 590 Balance 590 Intake: Oral 590 Other: Voiding Method Bedside Commode Bedside Commode Bedside Commode # Voids 1 1 1 # Bowel Movements 1 - Labs CBC & Chem 7: 02/28/24 05:17 02/29/24 03:43 Labs: Abnormal Lab Results - Last 24 Hours (Table) 02/29/24 Range/Units 03:43 Anion Gap 13.00 H (4.00-12.00) mmol/L Est GFR (CKD-EPI) 48 L (>=60) Total Bilirubin <0.2 L (0.3-1.2) mg/dL AST 73 H (13-35) U/L ALT 90 H (8-44) U/L Alkaline Phosphatase 141 H (41-126) U/L Albumin 3.5 L (3.8-4.9) g/dL Albumin/Globulin Ratio 1.21 L (1.60-3.17) Ratio Microbiology - Last 24 Hours (Table) 02/27/24 13:00 Blood Culture - Preliminary Blood 02/27/24 12:52 Blood Culture - Preliminary Blood
[2024-02-29 14:15] LABS: Basophils # (A) 0.08 X 10*3/uL (0.00-0.10); Basophils % (A) 0.7 %; Eosinophils # (A) 0.62 X 10*3/uL (0.04-0.35); Eosinophils % (A) 5.1 %; HGB 11.7 g/dL (12.0-15.0); Lymphocytes # (A) 1.88 X 10*3/uL (0.90-5.00); Lymphocytes % (A) 15.4 %; MCH 31.4 pg (27.0-32.0); MCHC 31.6 g/dL (32.0-37.0); MCV 99.2 FL (80.0-97.0); Monocytes # (A) 1.16 X 10*3/uL (0.20-1.00); Monocytes % (A) 9.5 %; NRBC Per 100 WBC 0.02 X 10*3/uL (0.00-0.01); Platelet Count 275 X 10*3/uL (140-440); RBC 3.73 X 10*6/uL (4.10-5.20); RDW 14.7 % (11.5-14.5); WBC 12.22 X 10*3/uL (4.50-10.00)
[2024-03-01 08:44] LABS: Basophils # (A) 0.12 X 10*3/uL (0.00-0.10); Basophils % (A) 0.8 %; Eosinophils # (A) 0.53 X 10*3/uL (0.04-0.35); Eosinophils % (A) 3.5 %; HCT 36.5 % (37.2-46.3); HGB 11.4 g/dL (12.0-15.0); Lymphocytes # (A) 1.77 X 10*3/uL (0.90-5.00); Lymphocytes % (A) 11.7 %; MCHC 31.2 g/dL (32.0-37.0); MCV 96.1 FL (80.0-97.0); Mean Platelet Volume 11.1 FL (9.5-12.2); Monocytes # (A) 1.02 X 10*3/uL (0.20-1.00); Monocytes % (A) 6.7 %; NRBC Per 100 WBC 0 X 10*3/uL (0.00-0.01); Neutrophils # (A) 11.18 X 10*3/uL (1.80-7.70); Neutrophils % (A) 73.8 %; Platelet Count 332 X 10*3/uL (140-440); RDW 14.5 % (11.5-14.5); WBC 15.15 X 10*3/uL (4.50-10.00)
[2024-03-01 08:58] LABS: ALT 62 U/L (8-44); AST 39 U/L (13-35); Albumin 3.5 g/dL (3.8-4.9); Albumin/Globulin Ratio 1.17 Ratio (1.60-3.17); Alkaline Phosphatase 130 U/L (41-126); Blood Urea Nitrogen 12.5 mg/dL (9.0-27.0); Calcium 9.2 mg/dL (8.7-10.3); Carbon Dioxide 23.8 mmol/L (21.6-31.8); Chloride 101 mmol/L (96-109); Glucose 89 mg/dL (70-110); Potassium 4.7 mmol/L (3.5-5.5); Sodium 138 mmol/L (135-145); Total Bilirubin 0.2 mg/dL (0.3-1.2); Total Protein 6.5 g/dL (6.2-8.2)
[2024-03-01] MEDS: LOSARTAN 25 MG TAB PO SCH (09:43)
--- NOTE | 2024-03-01 11:42 | P.PN ---
Subjective HISTORY OF PRESENT ILLNESS: This is a 73-year-old female patient of Dr. Bing Garrett with past medical history of hypothyroidism, hypertension, dyslipidemia, dementia, depression, chronic musculoskeletal pain, recently hospitalized with symptomatic bradycardia and sick sinus syndrome, underwent dual-chamber permanent pacemaker on 02/[address] García. Patient states that she came into the hospital because she could not walk. Her lower extremities were extremely weak. She does not know the underlying cause. She states she has shortness of breath which is chronic and she has had for years. Regarding pacemaker site, patient states that she did have more tenderness at the initial time of surgery but this has improved each day and to the point where she forgets that she is to use limited mobility on the left arm. No drainage from the wound. She denies fever or chills. Patient states that she did follow-up in the device clinic after her discharge from the hospital. Blood pressure 144/63, heart rate 56, pulse ox 94% on room air. Pat ient has been started on IV Solu-Medrol, nebulizer treatments and IV antibiotics. -EKG: Sinus rhythm, PACs, -Chest x-ray: No acute pulmonary process. Air in the right upper quadrant most likely loops of bowel. -CT of the chest abdomen pelvis revealed no suspicious changes for acute pneumoperitoneum. Some air present in the colon anterior to the liver. Multiple bilateral renal cysts. Small area of increased density anterior peripheral right lung. -Laboratory studies: WBC 12.8, hemoglobin 12. Sodium 135, potassium 4.1, BUN 26 creatinine 1.3. Total bilirubin 0.2, AST 70, ALT 45, alkaline phosphatase 141. -Home cardiac medications: Aspirin 81 mg daily, losartan 25 mg daily, simvastatin 40 mg at bedtime -Echocardiogram performed 02/11/2024 revealed technically difficult study. Normal LV size and systolic function. Mild mitral regurgitation. -Cardiac catheterization performed 02/19/2010 revealed minimal CAD. -Lexiscan Cardiolite stress test performed 05/17/2020 in the office revealed n egative stress test by EKG criteria. Normal myocardial perfusion and function. 03/01/2024 Patient examined this morning at the bedside. Patient currently denies chest pain or pressure. She denies shortness of breath. Vital signs are stable. Blood pressures are on the higher side with systolic in the 150s. Blood cultures are negative. PHYSICAL EXAM: VITAL SIGNS: Reviewed. GENERAL: Well-developed in no acute distress. NECK: Supple. No JVD or thyromegaly LUNGS: Respirations even and unlabored. Lungs essentially clear to auscultation bilaterally. HEART: Regular rate and rhythm. S1 and S2 heard. EXTREMITIES: Normal range of motion. No clubbing or cyanosis. Peripheral pulses intact. No lower extremity edema ASSESSMENT: Urinary tract infection Sick sinus syndrome status post permanent dual chamber pacemaker implantation 02/12 Acute renal failure, resolved Lower extremity weakness Hypertension Hypothyroidism Dyslipidemia Dementia Depression Chronic musculoskeletal pain PLAN: Continue current cardiac medications Resume home dose of losartan Patient is currently stable from a cardiac standpoint with no further inpatient recommendations We will sign off. Please reconsult if needed. Patient to follow-up postdischarge with Dr. Garrett Nurse practitioner note has been reviewed by physician. Signing provider agrees with the documented findings, assessment, and plan of care documented by [employer] as a scribe. Objective - Vital Signs Vital signs: Vital Signs Temp 98.1 F 03/01/24 07:11 Pulse 68 03/01/24 11:14 Resp 16 03/01/24 08:00 BP 157/84 03/01/24 07:11 Pulse Ox 96 03/01/24 07:11 FiO2 21 02/26/24 07:50 Intake & Output 02/29/24 03/01/24 03/01/24 18:59 06:59 18:59 Other: Voiding Method Bedside Commode Bedside Commode Bedside Commode Diaper Diaper Incontinent Incontinent # Voids 2 1 # Bowel Movements 2 3 1 - Labs CBC & Chem 7: 03/01/24 05:09 03/01/24 05:09 Labs: Abnormal Lab Results - Last 24 Hours (Table) 02/29/24 03/01/24 03/01/24 Range/Units 03:43 05:09 05:09 WBC 12.22 H 15.15 H (4.50-10.00) X 10*3/uL RBC 3.73 L 3.80 L (4.10-5.20) X 10*6/uL Hgb 11.7 L 11.4 L (12.0-15.0) g/dL Hct 37.0 L 36.5 L (37.2-46.3) % MCV 99.2 H (80.0-97.0) FL MCHC 31.6 L 31.2 L (32.0-37.0) g/dL RDW 14.7 H (11.5-14.5) % Immature Gran # 0.28 H 0.53 H (0.00-0.04) X 10*3/uL Neutrophils # 8.20 H 11.18 H (1.80-7.70) X 10*3/uL Monocytes # 1.16 H 1.02 H (0.20-1.00) X 10*3/uL Eosinophils # 0.62 H 0.53 H (0.04-0.35) X 10*3/uL Basophils # 0.12 H (0.00-0.10) X 10*3/uL NRBC/100 WBC Diff 0.02 H (0.00-0.01) X 10*3/uL Anion Gap 13.20 H (4.00-12.00) mmol/L Total Bilirubin 0.2 L (0.3-1.2) mg/dL AST 39 H (13-35) U/L ALT 62 H (8-44) U/L Alkaline Phosphatase 130 H (41-126) U/L Albumin 3.5 L (3.8-4.9) g/dL Albumin/Globulin Ratio 1.17 L (1.60-3.17) Ratio Microbiology - Last 24 Hours (Table) 02/27/24 13:00 Blood Culture - Preliminary Blood 02/27/24 12:52 Blood Culture - Preliminary Blood
--- NOTE | 2024-03-01 17:49 | P.PN ---
Subjective Progress Note Date: 03/01/24 Patient is 71-year-old female with COPD, GERD, hyperlipidemia, hypertension, thyroid disorder, Alzheimers who presents with weakness. Her symptoms began Friday and have progressed to a point where she states she cannot stand by herself. Pacemaker placed 1 week ago and she is concerned for infection due to some soreness at site of pacemaker placement. She also has stated a long history of urinary incontinence for which she uses adult diapers and bedpan at baseline. She endorses chronic cough with some shortness of breath. Which she states is at her baseline. Patient reports absence of fever, chills, chest pain, palpitations, diaphoresis, abdominal pain, and dysuria. Overnight patient states she was disoriented and had 1 episode of urinary incontinence. She has no other complaints today. Labs in ER unremarkable for leukocytosis 14.2, sodium 135, BUN 29, creatinine 1.46, glucose 134, AST 47, ALP 134, troponin 0.021, UA significant for cloudy appearance, protein 2+, blood moderate, leukocyte esterase large, RBC 13, WBC> 182 with bacteria, viral panel negative UDS positive for benzodiazepine. EKG done in the ER independently interpreted showed heart rate of 88, no ST segment elevation or depression seen, no T-wave inversions seen. Chest x-ray done independently interpreted in the ER showed no acute process. Air noted in right upper quadrant likely loops of bowel. CT chest abdomen pelvis with contrast done independently interpreted showed no suspicious changes for acute pneumoperitoneum, some air present within colon anterior to the liver. Multiple bilateral renal cysts, small area of increased density in anterior peripheral right lung. 02/27/2024 Patient seen and examined at bedside. No acute events overnight. She remains afebrile. She continues to endorse lower abdominal pain. She also states her urination is improving. She continues on Rocephin 1 g daily. PT suggesting subacute rehab will continue to follow her. WBC remains stable. Today's labs WBC 12.8, hemoglobin 12.5, MCV 104.4, sodium 135, potassium 5.6, BUN 29, creatinine 1.14, glucose 139, AST 134, ALT 93. 02/27. Patient seen and examined. States abdominal pain has improved. Patient seen and examined at bedside. States she is having regular bowel movements now, continues to endorse lower abdominal pain. Repeat UA. Blood cultures negative thus far. Today's labs WBC 15.1, sodium 138, potassium 4.7. REVIEW OF SYSTEMS: Pertinent positives and negatives noted in HPI. PHYSICAL EXAMINATION: Vitals reviewed GENERAL: No acute distress. Well developed, well nourished. Obese HEENT: Pupils are round and equally reacting to light. EOMI. No scleral icterus. Normocephalic, atraumatic. CARDIOVASCULAR: S1 and S2 present. No murmurs, rubs, or gallops. PULMONARY: Diminished air movement bilaterally, no wheezing, rhonchi, or crackles. ABDOMEN: Soft, nontender, nondistended, normoactive bowel sounds. No palpable organomegaly. MUSCULOSKELETAL: No apparent joint swelling and deformities. EXTREMITIES: No apparent cyanosis, clubbing, or pedal edema. NEUROLOGICAL: The patient is alert and oriented x3, Gross neurological examination did not reveal any focal deficits. SKIN: No apparent rashes. Assessment and plan Patient is 71-year-old female with COPD, GERD, hyperlipidemia, hypertension, thyroid disorder, Alzheimers, who is treated for UTI, and JUSTIN. # Urinary tract infection #Leukocytosis # Lower extremity weakness #JUSTIN likely due to dehydration - UA with significant leukocyte esterase Continue Rocephin 1 g daily PT OT following Blood cultures negative thus far Repeat UA pending Monitor BMP #Hyperkalemia Monitor BMP, hyperkalemia resolved #Sick sinus syndrome, with permanent dual-chamber pacemaker implantation 1129- [id number] #Chest wall tenderness at pacemaker insertion site No sign of infection Continue monitor Cardiology signed off # COPD not in acute exacerbation Begin DuoNeb, Ventolin Given Solu-Medrol CT chest with increased density in anterior peripheral right lung Continue to monitor Chronic Medical Conditions # Essential hypertension - Resume home Losartan #Hyperlidemia - Resume home simvastatin #Alzheimer's Restart home meds #Hypothyroidism - Resume home Synthroid #GERD - Resume home Pantoprazole #Anxiety/Depression - Resume home bupropion, fluoxetine F: P.o. E: Replete as needed N: Heart healthy diet DVT ppx: Subq heparin every 8 hours Code status: Full code Anticipated discharge place: Subacute rehab Anticipated discharge time: 1days Dictation was produced using [employer] dictation software. Please excuse any grammatical, word or spelling errors. Objective - Vital Signs Vital signs: Vital Signs Temp 98.2 F 03/01/24 11:51 Pulse 72 03/01/24 15:51 Resp 16 03/01/24 11:51 BP 120/73 03/01/24 11:51 Pulse Ox 94 L 03/01/24 11:51 FiO2 21 02/26/24 07:50 Intake & Output 02/29/24 03/01/24 03/01/24 18:59 06:59 18:59 Other: Voiding Method Bedside Commode Bedside Commode Bedside Commode Diaper Diaper Incontinent Incontinent # Voids 2 1 # Bowel Movements 2 3 1 - Labs CBC & Chem 7: 03/01/24 05:09 03/01/24 05:09 Labs: Abnormal Lab Results - Last 24 Hours (Table) 03/01/24 03/01/24 Range/Units 05:09 05:09 WBC 15.15 H (4.50-10.00) X 10*3/uL RBC 3.80 L (4.10-5.20) X 10*6/uL Hgb 11.4 L (12.0-15.0) g/dL Hct 36.5 L (37.2-46.3) % MCHC 31.2 L (32.0-37.0) g/dL Immature Gran # 0.53 H (0.00-0.04) X 10*3/uL Neutrophils # 11.18 H (1.80-7.70) X 10*3/uL Monocytes # 1.02 H (0.20-1.00) X 10*3/uL Eosinophils # 0.53 H (0.04-0.35) X 10*3/uL Basophils # 0.12 H (0.00-0.10) X 10*3/uL Anion Gap 13.20 H (4.00-12.00) mmol/L Total Bilirubin 0.2 L (0.3-1.2) mg/dL AST 39 H (13-35) U/L ALT 62 H (8-44) U/L Alkaline Phosphatase 130 H (41-126) U/L Albumin 3.5 L (3.8-4.9) g/dL Albumin/Globulin Ratio 1.17 L (1.60-3.17) Ratio Microbiology - Last 24 Hours (Table) 02/27/24 13:00 Blood Culture - Preliminary Blood 02/27/24 12:52 Blood Culture - Preliminary Blood
[2024-03-01 18:31] LABS: Appearance,Urine Clear (Clear); Bilirubin,Urine Negative (Negative); Blood,Urine Negative (Negative); Color,Urine Colorless; Glucose,Urine (UA) Negative (Negative); Ketones,Urine Negative (Negative); Leukocyte Esterase,Urine Negative (Negative); Nitrite,Urine Negative (Negative); Protein,Urine Trace (Negative); Specific Gravity,Urine 1.006 (1.001-1.035); Urobilinogen,Urine <2.0 mg/dL (<2.0)
[2024-03-02 08:58] LABS: ALT 47 U/L (8-44); AST 29 U/L (13-35); Albumin 3.5 g/dL (3.8-4.9); Albumin/Globulin Ratio 1.25 Ratio (1.60-3.17); Alkaline Phosphatase 113 U/L (41-126); Blood Urea Nitrogen 14.5 mg/dL (9.0-27.0); Calcium 9.1 mg/dL (8.7-10.3); Carbon Dioxide 26.3 mmol/L (21.6-31.8); Chloride 101 mmol/L (96-109); Globulin 2.8 g/dL (1.6-3.3); Glucose 88 mg/dL (70-110); Potassium 4.4 mmol/L (3.5-5.5); Sodium 139 mmol/L (135-145); Total Bilirubin 0.2 mg/dL (0.3-1.2); Total Protein 6.3 g/dL (6.2-8.2)
[2024-03-02 09:19] LABS: Basophils # (A) 0.07 X 10*3/uL (0.00-0.10); Basophils % (A) 0.4 %; Eosinophils # (A) 0.55 X 10*3/uL (0.04-0.35); Eosinophils % (A) 3.3 %; HCT 32.9 % (37.2-46.3); HGB 10.6 g/dL (12.0-15.0); Lymphocytes # (A) 2.09 X 10*3/uL (0.90-5.00); Lymphocytes % (A) 12.6 %; MCH 30.1 pg (27.0-32.0); MCHC 32.2 g/dL (32.0-37.0); MCV 93.5 FL (80.0-97.0); Monocytes # (A) 1.16 X 10*3/uL (0.20-1.00); NRBC Per 100 WBC 0 X 10*3/uL (0.00-0.01); Neutrophils # (A) 12.09 X 10*3/uL (1.80-7.70); Neutrophils % (A) 73.2 %; Platelet Count 365 X 10*3/uL (140-440); RBC 3.52 X 10*6/uL (4.10-5.20); RDW 14.3 % (11.5-14.5); WBC 16.54 X 10*3/uL (4.50-10.00)
[2024-03-02] MEDS ORDERED: LACTULOSE 20 GM/30 ML CUP PO PRN (10:32)
--- NOTE | 2024-03-02 11:30 | P.PN ---
Subjective Progress Note Date: 03/02/24 Patient is 71-year-old female with COPD, GERD, hyperlipidemia, hypertension, thyroid disorder, Alzheimers who presents with weakness. Her symptoms began Friday and have progressed to a point where she states she cannot stand by herself. Pacemaker placed 1 week ago and she is concerned for infection due to some soreness at site of pacemaker placement. She also has stated a long history of urinary incontinence for which she uses adult diapers and bedpan at baseline. She endorses chronic cough with some shortness of breath. Which she states is at her baseline. Patient reports absence of fever, chills, chest pain, palpitations, diaphoresis, abdominal pain, and dysuria. Overnight patient states she was disoriented and had 1 episode of urinary incontinence. She has no other complaints today. Labs in ER unremarkable for leukocytosis 14.2, sodium 135, BUN 29, creatinine 1.46, glucose 134, AST 47, ALP 134, troponin 0.021, UA significant for cloudy appearance, protein 2+, blood moderate, leukocyte esterase large, RBC 13, WBC> 182 with bacteria, viral panel negative UDS positive for benzodiazepine. EKG done in the ER independently interpreted showed heart rate of 88, no ST segment elevation or depression seen, no T-wave inversions seen. Chest x-ray done independently interpreted in the ER showed no acute process. Air noted in right upper quadrant likely loops of bowel. CT chest abdomen pelvis with contrast done independently interpreted showed no suspicious changes for acute pneumoperitoneum, some air present within colon anterior to the liver. Multiple bilateral renal cysts, small area of increased density in anterior peripheral right lung. 02/27/2024 Patient seen and examined at bedside. No acute events overnight. She remains afebrile. She continues to endorse lower abdominal pain. She also states her urination is improving. She continues on Rocephin 1 g daily. PT suggesting subacute rehab will continue to follow her. WBC remains stable. Today's labs WBC 12.8, hemoglobin 12.5, MCV 104.4, sodium 135, potassium 5.6, BUN 29, creatinine 1.14, glucose 139, AST 134, ALT 93. 02/27. Patient seen and examined. States abdominal pain has improved. Patient seen and examined at bedside. States she is having regular bowel movements now, continues to endorse lower abdominal pain. Repeat UA. Blood cultures negative thus far. Today's labs WBC 15.1, sodium 138, potassium 4.7. 03/02/2024 Patient seen and examined at the side. Patient states he is to have regular bowel movements, with diarrhea. She continues to endorse lower abdominal pain which has not improved. Today's labs WBC 16.54 hemoglobin 10.6, sodium 139, potassium 4.4, UA negative. REVIEW OF SYSTEMS: Pertinent positives and negatives noted in HPI. PHYSICAL EXAMINATION: Vitals reviewed GENERAL: No acute distress. Well developed, well nourished. Obese HEENT: Pupils are round and equally reacting to light. EOMI. No scleral icterus. Normocephalic, atraumatic. CARDIOVASCULAR: S1 and S2 present. No murmurs, rubs, or gallops. PULMONARY: Diminished air movement bilaterally, no wheezing, rhonchi, or crackles. ABDOMEN: Soft, nontender, nondistended, normoactive bowel sounds. No palpable organomegaly. MUSCULOSKELETAL: No apparent joint swelling and deformities. EXTREMITIES: No apparent cyanosis, clubbing, or pedal edema. NEUROLOGICAL: The patient is alert and oriented x3, Gross neurological examination did not reveal any focal deficits. SKIN: No apparent rashes. Assessment and plan Patient is 71-year-old female with COPD, GERD, hyperlipidemia, hypertension, thyroid disorder, Alzheimers, who is treated for UTI, and JUSTIN. # Urinary tract infection #Leukocytosis # Lower extremity weakness #JUSTIN likely due to dehydration - UA with significant leukocyte esterase Continue Rocephin 1 g daily PT OT following Blood cultures negative thus far Repeat UA unremarkable Monitor BMP # COPD not in acute exacerbation, chronic cough Begin DuoNeb, Ventolin Given Solu-Medrol CT chest with increased density in anterior peripheral right lung - repeat CXR #Hyperkalemia Monitor BMP, hyperkalemia resolved #Sick sinus syndrome, with permanent dual-chamber pacemaker implantation 9 #Chest wall tenderness at pacemaker insertion site No sign of infection Continue monitor Cardiology signed off Chronic Medical Conditions # Essential hypertension - Resume home Losartan #Hyperlidemia - Resume home simvastatin #Alzheimer's Restart home meds #Hypothyroidism - Resume home Synthroid #GERD - Resume home Pantoprazole #Anxiety/Depression - Resume home bupropion, fluoxetine F: P.o. E: Replete as needed N: Heart healthy diet DVT ppx: Subq heparin every 8 hours Code status: Full code Anticipated discharge place: Home with home health services Anticipated discharge time: 1 to 2 days Dictation was produced using [employer] dictation software. Please excuse any grammatical, word or spelling errors. Objective - Vital Signs Vital signs: Vital Signs Temp 98.4 F 03/02/24 06:56 Pulse 72 03/02/24 07:58 Resp 18 03/02/24 06:56 BP 148/73 03/02/24 06:56 Pulse Ox 93 L 03/02/24 06:56 FiO2 21 02/26/24 07:50 Intake & Output 03/01/24 03/02/24 03/02/24 18:59 06:59 18:59 Intake Total 500 Balance 500 Intake: Oral 500 Other: Voiding Method Bedside Commode Bedside Commode Bedside Commode Diaper Diaper Diaper Incontinent Incontinent Incontinent # Voids 1 # Bowel Movements 1 1 - Labs CBC & Chem 7: 03/02/24 04:38 03/02/24 04:38 Labs: Abnormal Lab Results - Last 24 Hours (Table) 03/01/24 03/02/24 03/02/24 Range/Units 18:19 04:38 04:38 WBC 16.54 H (4.50-10.00) X 10*3/uL RBC 3.52 L (4.10-5.20) X 10*6/uL Hgb 10.6 L (12.0-15.0) g/dL Hct 32.9 L (37.2-46.3) % Immature Gran # 0.58 H (0.00-0.04) X 10*3/uL Neutrophils # 12.09 H (1.80-7.70) X 10*3/uL Monocytes # 1.16 H (0.20-1.00) X 10*3/uL Eosinophils # 0.55 H (0.04-0.35) X 10*3/uL Total Bilirubin 0.2 L (0.3-1.2) mg/dL ALT 47 H (8-44) U/L Albumin 3.5 L (3.8-4.9) g/dL Albumin/Globulin Ratio 1.25 L (1.60-3.17) Ratio Urine Protein Trace H (Negative) Microbiology - Last 24 Hours (Table) 02/27/24 13:00 Blood Culture - Preliminary Blood 02/27/24 12:52 Blood Culture - Preliminary Blood
--- NOTE | 2024-03-02 12:00 | XR ---
EXAMINATION TYPE: XR chest 1V portable DATE OF EXAM: 03/02/2024 11:51 AM COMPARISON: Chest radiographs from 02/25/2024, CT chest abdomen pelvis 02/25/2024 TECHNIQUE: XR chest 1V portable Portable AP radiograph of the chest. CLINICAL INDICATION:Female, 73 years old with history of cough, sputum production; FINDINGS: Lungs/Pleura: There is no evidence of pleural effusion, focal consolidation, or pneumothorax. Pulmonary vascularity: Unremarkable. Heart/mediastinum: Cardiomediastinal silhouette is unremarkable. Atherosclerotic calcifications are seen in the aorta. Two lead cardiac conduction device overlying the left hemithorax with lead tips pr ojecting over the right ventricle and right atrium. Musculoskeletal: No acute osseous pathology. Partial visualization of cervical fusion hardware. IMPRESSION: No acute cardiopulmonary disease/process. [facility], , 03/02/2024 11:57 AM
--- NOTE | 2024-03-02 12:02 | XR ---
EXAMINATION TYPE: XR abdomen 1V DATE OF EXAM: 03/02/2024 COMPARISON: CT chest abdomen and pelvis 02/25/2024, acute abdominal series 02/28/2024. HISTORY: Abdominal pain TECHNIQUE: Single supine KUB image of the abdomen is obtained FINDINGS: Small bowel demonstrates no evidence for dilatation or air fluid levels. Gas and fecal material is seen in non-distended colon. No convincing evidence for pneumoperitoneum. Pelvic phleboliths. The lung bases are clear. Prior visualization of cardiac pacemaker leads. No acute osseous abnormality. Osteoarthritic changes of both hips with flattening of the left femoral head. Multiple level degenerative changes of the visualized spine. Mild dextrocurvature of the lumba r spine. IMPRESSION: Overall nonobstructive bowel gas pattern. [facility], , 03/02/2024 12:00 PM
[2024-03-02] MEDS ORDERED: ALBUTEROL NEBULIZED 2.5 MG/3 ML INHALATION PRN (15:18)
[2024-03-03 08:26] LABS: Basophils # (A) 0.1 k/uL (0-0.2); Basophils % (A) 0 %; Eosinophils # (A) 0.5 k/uL (0-0.7); Eosinophils % (A) 3 %; HCT 34.2 % (34.0-46.0); HGB 11.1 gm/dL (11.4-16.0); Lymphocytes # (A) 1.6 k/uL (1.0-4.8); Lymphocytes % (A) 10 %; MCH 31.2 pg (25.0-35.0); MCHC 32.5 g/dL (31.0-37.0); Mean Platelet Volume 7.8; Monocytes # (A) 0.6 k/uL (0-1.0); Monocytes % (A) 4 %; Neutrophils # (A) 13.5 k/uL (1.3-7.7); Neutrophils % (A) 81 %; Platelet Count 357 k/uL (150-450); RBC 3.57 m/uL (3.80-5.40); RDW 13.7 % (11.5-15.5); WBC 16.7 k/uL (3.8-10.6)
[2024-03-03 08:42] LABS: ALT 40 U/L (4-34); AST 33 U/L (14-36); African American GFR (CKD) 72 (>60 ml/min/1.73 sqM); Albumin 3.4 g/dL (3.5-5.0); Albumin/Globulin Ratio 1.2; Alkaline Phosphatase 110 U/L (38-126); Anion Gap 6 mmol/L; Blood Urea Nitrogen 13 mg/dL (7-17); Calcium 9.1 mg/dL (8.4-10.2); Carbon Dioxide 29 mmol/L (22-30); Chloride 100 mmol/L (98-107); Globulin 2.9 g/dL; Glucose 92 mg/dL (74-99); Non-African American GFR(CKD) 63 (>60 ml/min/1.73 sqM); Potassium 4.6 mmol/L (3.5-5.1); Sodium 135 mmol/L (137-145); Total Bilirubin 0.3 mg/dL (0.2-1.3); Total Protein 6.3 g/dL (6.3-8.2)
[2024-03-03] MEDS: polyethylene glycoL 3350 17 GM POWD.PACK PO SCH (10:24)
--- NOTE | 2024-03-03 12:29 | P.CONS ---
History of Present Illness - Reason for Consult Consult date: 03/03/24 Abdominal pain, leukocytosis Requesting physician: Surjit Davis - Chief Complaint Weakness, inability to stand. - History of Present Illness This a pleasant 73-year-old female who presented to the emergency department with multiple complaints including that she was unable to stand up that her legs were so weak, generalized bodyaches with concern for an infection. Past medical history includes COPD, GERD, hyperlipidemia, hypertension, memory impairment, thyroid disorder, coronary artery disease with recent pacemaker placement. Patient has chronic pain and is on [place] at home. States she takes daily. States that when she came into the hospital she was starting to have some abdominal pain. She had not had a bowel movement in 4 to 5 days. She states that is not normal for her. She was given some laxative and was able to have a bowel movement this morning. Abdominal pain improved some. She denies any nausea or vomiting. She has had multiple imaging done of the abdomen without any acute findings. Patient's had leukocytosis since admission, with slight elevation today of 16.7. She has been afebrile. Urinalysis normal. Chest x- ray reports no acute cardiopulmonary disease/process. Patient had EGD and colonoscopy in September 2022. Upper endoscopy with findings of mild gastritis and colonoscopy normal. Review of Systems REVIEW OF SYSTEMS: CARDIOPULMONARY: No chest pain or shortness of breath. Gastrointestinal: Abdominal pain with constipation, now improving. Bowel movement today. No nausea or vomiting. No hematemesis, coffee-ground emesis. No rectal bleeding, or melena. GENITOURINARY: No dysuria or hematuria. MUSCULOSKELETAL: Reports normal range of motion., Joint pain. SKIN: No rashes. No jaundice. ENDOCRINE: No chills, fevers. No excessive weight gain or loss. No polydipsia or polyuria. PSYCHIATRIC: Unremarkable. NEUROLOGY: No change in mental status. Denies dizziness, headache. Patient s tates weakness in bilateral lower extremities. ENT: Vision unremarkable. CONSTITUTIONAL: No recent weight loss. No fever, chills, night sweats. Past Medical History Past Medical History: COPD, GERD/Reflux, Hyperlipidemia, Hypertension, Memory Impairment, Osteoarthritis (OA), Thyroid Disorder Additional Past Medical History / Comment(s): urinary incontinence, crushed tailbone, herniated discs History of Any Multi-Drug Resistant Organisms: None Reported Past Surgical History: Appendectomy, Section, Heart Catheterization, Pacemaker Additional Past Surgical History / Comment(s): NECK FUSION, colonoscopy Past Anesthesia/Blood Transfusion Reactions: No Reported Reaction, Motion Sickness Type of Cardiac Device: Unknown Device Placement Date:: 02/13/24 Past Psychological History: Anxiety, Depression Smoking Status: Former smoker Past Alcohol Use History: Rare Additional Past Alcohol Use History / Comment(s): STARTED SMOKING AT AGE 18- SMOKES <1/2PPD Past Drug Use History: None Reported Additional Drug Use History / Comment(s): quit smoking 2023. - Past Family History Mother Family Medical History: Cancer Father Family Medical History: Cancer Additional Family Medical History / Comment(s): PROSTATE Brother(s) Family Medical History: Cancer Additional Family Medical History / Comment(s): ESOPHAGUS CANCER Sister(s) Family Medical History: Cancer Additional Family Medical History / Comment(s): BREAST Medications and Allergies Home Medications Medication Instructions Recorded Confirmed Type Simvastatin [Zocor] 40 mg PO HS 08/29/15 02/25/24 History oxyBUTYnin chloride [Ditropan] 5 mg PO DAILY 08/29/15 02/25/24 History Acetaminophen [Tylenol Arthritis] 650 mg PO BID 10/24/15 02/25/24 History Aspirin EC [Ecotrin Low Dose] 81 mg PO DAILY 10/24/15 02/25/24 History Donepezil HCl [Aricept] 10 mg PO HS 10/17/21 02/25/24 History Omeprazole 20 mg PO DAILY 10/17/21 02/25/24 History buPROPion HCL [buPROPion HCL SR] 150 mg PO Q12HR 10/17/21 02/25/24 History Albuterol Inhaler [Ventolin Hfa 2 puff INHALATION RT-Q6H PRN 02/10/24 02/25/24 History Inhaler] Ascorbic Acid [Vitamin C] 1,000 mg PO DAILY 02/10/24 02/25/24 History Cholecalciferol [Vitamin D3 (25 50 mcg PO DAILY 02/10/24 02/25/24 History Mcg = 1000 Iu)] Cyanocobalamin (Vitamin B-12) 1,000 mcg PO DAILY 02/10/24 02/25/24 History [Vitamin B-12] FLUoxetine HCL 40 mg PO DAILY 02/10/24 02/25/24 History Ferrous Sulfate [Iron (65 MG 325 mg PO BID 02/10/24 02/25/24 History Elemental)] HYDROcodone/APAP 10-325MG [[place] 1 tab PO BID PRN 02/10/24 02/25/24 History 10-325] Memantine [Namenda] 5 mg PO BID 02/10/24 02/25/24 History Multivitamins, Thera [Multivitamin 1 tab PO DAILY 02/10/24 02/25/24 History (formulary)] Naloxone HCl [Narcan] 4 mg NASAL ONCE PRN 02/10/24 02/25/24 History Pregabalin [Lyrica] 200 mg PO TID 02/10/24 02/25/24 History Losartan [Cozaar] 25 mg PO DAILY #90 tab 02/13/24 02/25/24 Rx Levothyroxine Sodium [Synthroid] 75 mcg PO DAILY 02/25/24 02/25/24 History Allergies Allergy/AdvReac Type Severity Reaction Status Date / Time Penicillins Allergy Rash/Hives Verified 02/25/24 20:33 venom-honey bee Allergy Swelling Verified 02/25/24 20:33 [bee venom (honey bee)] Physical Exam Vitals: Vital Signs Temp Pulse Pulse Resp BP Pulse Ox 03/03/24 07:02 98.5 F 65 18 160/71 92 L 03/03/24 02:00 98.2 F 74 14 146/84 93 L 03/02/24 19:51 98.2 F 66 12 147/72 93 L 03/02/24 12:07 98.3 F 67 18 135/72 94 L 03/02/24 11:30 68 03/02/24 11:17 66 Intake and Output 03/02/24 03/03/24 03/03/24 22:59 06:59 14:59 Intake Total 50 540 Balance 50 540 Intake: Intake, IV Titration 50 Amount cefTRIAXone 1 gm In 50 Sodium Chloride 0.9% 50 ml @ 100 mls/hr IVPB Q24HR [facility] Rx#:[id number] Oral 540 Other: Voiding Method Bedside Commode Diaper Incontinent # Voids 1 # Bowel Movements 1 General appearance: The patient is alert, oriented, appears in no acute distress. HET: Head is normocephalic and atraumatic. Conjunctiva pink. Sclera anicteric. Neck: Supple without lymphadenopathy. Trachea midline. Heart: Regular. Lungs: Equal expansion, normal respiratory effort. Abdomen: Soft, mild lower abdominal tenderness, nondistended. Skin: No rashes. No jaundice. Extremities: Normal skin color and turgor. No pedal edema. Neurological: No focal deficits. Alert and oriented x3. Results CBC & Chem 7: 03/03/24 08:11 03/03/24 08:11 Labs: Abnormal Lab Results - Last 24 Hours (Table) 03/03/24 03/03/24 Range/Units 08:11 08:11 WBC 16.7 H (3.8-10.6) k/uL RBC 3.57 L (3.80-5.40) m/uL Hgb 11.1 L (11.4-16.0) gm/dL Neutrophils # 13.5 H (1.3-7.7) k/uL Sodium 135 L (137-145) mmol/L ALT 40 H (4-34) U/L Albumin 3.4 L (3.5-5.0) g/dL Comments: CT chest abdomen pelvis with contrast reports leukocytosis no suspicious changes for acute pneumoperitoneum. Some air present within the colon anterior to the liver. Multiple bilateral renal cysts. Small area of increased density anterior peripheral right lung. Follow-up exam in 6 months can be performed. Acute abdominal series reports cardiomegaly and possible mild pulmonary vascular congestion changes. Nonobstructive bowel gas pattern. No evidence of free air. Abdominal x-ray reports no acute cardiopulmonary disease/process Acute abdominal series reports cardiomegaly and possible mild pulmonary vascular congestive changes. Nonobstructive bowel gas pattern. No evidence of free air. Assessment and Plan (1) Abdominal pain Narrative/Plan: 73-year-old female presented with multiple complaints to the emergency department but her main complaint was lower extremity weakness. She also had complaints of abdominal pain and constipation since she came into the hospital. Had been 4 to 5 days prior to her bowel movement this morning. She was given lactulose and then subsequently had a bowel movement today. Denies any blood or black stool in her bowels. Denies any nausea or vomiting. Also presenting with leukocytosis unclear etiology. Abdominal pain appears secondary to constipation, multiple images with no acute findings. Recommend treat constipation which is likely secondary to opioid use. Discussed importance with patient for regular bowel regimen. Recent EGD and colonoscopy in September 2022 with out any acute findings. Current Visit: Yes Status: Acute Code(s): R10.9 - UNSPECIFIED ABDOMINAL PAIN SNOMED Code(s): 52719500 (2) Constipation Current Visit: Yes Status: Acute Code(s): K59.00 - CONSTIPATION, UNSPECIFIED SNOMED Code(s): 37050195 (3) Opioid use Current Visit: Yes Status: Acute Code(s): F11.90 - OPIOID USE, UNSPECIFIED, UNCOMPLICATED SNOMED Code(s): 19952000 (4) Leukocytosis Narrative/Plan: Unclear etiology of leukocytosis, consider consultation to infectious disease or general surgery if still concerned with abdominal pain and leukocytosis. Current Visit: Yes Status: Acute Code(s): D72.829 - ELEVATED WHITE BLOOD CELL COUNT, UNSPECIFIED SNOMED Code(s): 344160036 Plan: 1. Continue symptomatic and supportive care 2. Discontinue lactulose as could cause secondary cramping 3. Start MiraLAX daily, can Titrate to twice a day. Recommend discharge on MiraLAX for opioid-induced constipation 4. May continue Bentyl 5. No further gastroenterology workup planned. Patient had recent EGD and colonoscopy September 2022 with findings of mild gastritis with a normal colonoscopy 6. Consider consultation to infectious disease for leukocytosis, possibly general surgery Thank you for this consultation, we will continue to follow. Dr. Danna Garrett I agree with the dictator's note, documented as a scribe by Lynn Mckeon.
--- NOTE | 2024-03-03 19:34 | P.PN ---
Subjective Progress Note Date: 03/03/24 Patient is 71-year-old female with COPD, GERD, hyperlipidemia, hypertension, thyroid disorder, Alzheimers who presents with weakness. Her symptoms began Friday and have progressed to a point where she states she cannot stand by herself. Pacemaker placed 1 week ago and she is concerned for infection due to some soreness at site of pacemaker placement. She also has stated a long history of urinary incontinence for which she uses adult diapers and bedpan at baseline. She endorses chronic cough with some shortness of breath. Which she states is at her baseline. Patient reports absence of fever, chills, chest pain, palpitations, diaphoresis, abdominal pain, and dysuria. Overnight patient states she was disoriented and had 1 episode of urinary incontinence. She has no other complaints today. Labs in ER unremarkable for leukocytosis 14.2, sodium 135, BUN 29, creatinine 1.46, glucose 134, AST 47, ALP 134, troponin 0.021, UA significant for cloudy appearance, protein 2+, blood moderate, leukocyte esterase large, RBC 13, WBC> 182 with bacteria, viral panel negative UDS positive for benzodiazepine. EKG done in the ER independently interpreted showed heart rate of 88, no ST segment elevation or depression seen, no T-wave inversions seen. Chest x-ray done independently interpreted in the ER showed no acute process. Air noted in right upper quadrant likely loops of bowel. CT chest abdomen pelvis with contrast done independently interpreted showed no suspicious changes for acute pneumoperitoneum, some air present within colon anterior to the liver. Multiple bilateral renal cysts, small area of increased density in anterior peripheral right lung. 02/27/2024 Patient seen and examined at bedside. No acute events overnight. She remains afebrile. She continues to endorse lower abdominal pain. She also states her urination is improving. She continues on Rocephin 1 g daily. PT suggesting subacute rehab will continue to follow her. WBC remains stable. Today's labs WBC 12.8, hemoglobin 12.5, MCV 104.4, sodium 135, potassium 5.6, BUN 29, creatinine 1.14, glucose 139, AST 134, ALT 93. 02/27. Patient seen and examined. States abdominal pain has improved. Patient seen and examined at bedside. States she is having regular bowel movements now, continues to endorse lower abdominal pain. Repeat UA. Blood cultures negative thus far. Today's labs WBC 15.1, sodium 138, potassium 4.7. 03/02/2024 Patient seen and examined at the side. Patient states he is to have regular bowel movements, with diarrhea. She continues to endorse lower abdominal pain which has not improved. Today's labs WBC 16.54 hemoglobin 10.6, sodium 139, potassium 4.4, UA negative. 03/03/2024 Patient seen and examined at the side. She continues to endorse lower abdominal pain. Leukocytosis persistent, afebrile. Labs WBC 16.7, hemoglobin 11.1. Sodium 135, AST ALT downtrending. Chest and abdominal x-ray findings of no acute processes. REVIEW OF SYSTEMS: Pertinent positives and negatives noted in HPI. PHYSICAL EXAMINATION: Vitals reviewed GENERAL: No acute distress. Well developed, well nourished. Obese HEENT: Pupils are round and equally reacting to light. EOMI. No scleral icterus. Normocephalic, atraumatic. CARDIOVASCULAR: S1 and S2 present. No murmurs, rubs, or gallops. PULMONARY: Diminished air movement bilaterally, no wheezing, rhonchi, or crackles. ABDOMEN: Soft, right upper quadrant and periumbilical tenderness, nondistended, normoactive bowel sounds. No palpable organomegaly. MUSCULOSKELETAL: No apparent joint swelling and deformities. EXTREMITIES: No apparent cyanosis, clubbing, or pedal edema. NEUROLOGICAL: The patient is alert and oriented x3, Gross neurological examination did not reveal any focal deficits. SKIN: No apparent rashes. Assessment and plan Patient is 71-year-old female with COPD, GERD, hyperlipidemia, hypertension, thyroid disorder, Alzheimers, who is treated for UTI, and JUSTIN. #Leukocytosis, unknown origin Left shift immature granulocytes Initial concern for pacemaker site tenderness Repeat UA unremarkable Chest x-ray and abdominal x-ray unremarkable Blood cultures negative thus far Stool culture pending No current steroid use Continues on ceftriaxone 1g every 24 for UTI, day #7 ID consulted #Lower abdominal pain #Altered bowel habits, constipation predominant CT abdomen with no acute process Continue MiraLAX, Protonix, dicyclomine GI consulted, recommendations appreciated # Urinary tract infection #JUSTIN likely due to dehydration - UA with significant leukocyte esterase Repeat UA unremarkable Continue Rocephin 1 g daily Blood cultures negative thus far Monitor BMP # Lower extremity weakness, improved # COPD not in acute exacerbation, chronic cough Continue Ventolin #Hyperkalemia Monitor BMP, hyperkalemia resolved #Sick sinus syndrome, with permanent dual-chamber pacemaker implantation 1129- [id number] #Chest wall tenderness at pacemaker insertion site No sign of infection Continue monitor Cardiology signed off Chronic Medical Conditions # Essential hypertension - Resume home Losartan #Hyperlidemia - Resume home simvastatin #Alzheimer's Restart home meds #Hypothyroidism - Resume home Synthroid #GERD - Resume home Pantoprazole #Anxiety/Depression - Resume home bupropion, fluoxetine F: P.o. E: Replete as needed N: Heart healthy diet DVT ppx: Subq heparin every 8 hours Code status: Full code Anticipated discharge place: Home with home health services Anticipated discharge time: 1 to 2 days Dictation was produced using [employer] dictation software. Please excuse any grammatical, word or spelling errors. Objective - Vital Signs Vital signs: Vital Signs Temp 98.5 F 03/03/24 07:02 Pulse 65 03/03/24 07:02 Resp 18 03/03/24 07:02 BP 160/71 03/03/24 07:02 Pulse Ox 92 L 03/03/24 07:02 FiO2 21 02/26/24 07:50 Intake & Output 03/02/24 03/03/24 03/03/24 18:59 06:59 18:59 Intake Total 50 540 Balance 50 540 Intake: Intake, IV Titration 50 Amount cefTRIAXone 1 gm In 50 Sodium Chloride 0.9% 50 ml @ 100 mls/hr IVPB Q24HR [facility] Rx#:[id number] Oral 540 Other: Voiding Method Bedside Commode Bedside Commode Diaper Diaper Incontinent Incontinent # Voids 1 # Bowel Movements 1 - Labs CBC & Chem 7: 03/03/24 08:11 03/03/24 08:11 Labs: Abnormal Lab Results - Last 24 Hours (Table) 03/02/24 03/02/24 Range/Units 04:38 04:38 WBC 16.54 H (4.50-10.00) X 10*3/uL RBC 3.52 L (4.10-5.20) X 10*6/uL Hgb 10.6 L (12.0-15.0) g/dL Hct 32.9 L (37.2-46.3) % Immature Gran # 0.58 H (0.00-0.04) X 10*3/uL Neutrophils # 12.09 H (1.80-7.70) X 10*3/uL Monocytes # 1.16 H (0.20-1.00) X 10*3/uL Eosinophils # 0.55 H (0.04-0.35) X 10*3/uL Total Bilirubin 0.2 L (0.3-1.2) mg/dL ALT 47 H (8-44) U/L Albumin 3.5 L (3.8-4.9) g/dL Albumin/Globulin Ratio 1.25 L (1.60-3.17) Ratio
[2024-03-04 08:48] LABS: Basophils # (A) 0.14 X 10*3/uL (0.00-0.10); Basophils % (A) 0.9 %; Eosinophils # (A) 0.41 X 10*3/uL (0.04-0.35); Eosinophils % (A) 2.5 %; HCT 36.1 % (37.2-46.3); HGB 11.1 g/dL (12.0-15.0); Lymphocytes # (A) 2.22 X 10*3/uL (0.90-5.00); Lymphocytes % (A) 13.5 %; MCHC 30.7 g/dL (32.0-37.0); MCV 97.6 FL (80.0-97.0); Mean Platelet Volume 10.9 FL (9.5-12.2); Monocytes # (A) 1.29 X 10*3/uL (0.20-1.00); Monocytes % (A) 7.9 %; NRBC Per 100 WBC 0 X 10*3/uL (0.00-0.01); Neutrophils # (A) 11.87 X 10*3/uL (1.80-7.70); Neutrophils % (A) 72.4 %; Platelet Count 359 X 10*3/uL (140-440); RDW 14.4 % (11.5-14.5); WBC 16.39 X 10*3/uL (4.50-10.00)
[2024-03-04 08:57] LABS: ALT 36 U/L (8-44); AST 26 U/L (13-35); Albumin 3.4 g/dL (3.8-4.9); Albumin/Globulin Ratio 1.13 Ratio (1.60-3.17); Alkaline Phosphatase 101 U/L (41-126); Blood Urea Nitrogen 15.2 mg/dL (9.0-27.0); Calcium 9.2 mg/dL (8.7-10.3); Carbon Dioxide 27.8 mmol/L (21.6-31.8); Chloride 100 mmol/L (96-109); Glucose 78 mg/dL (70-110); Sodium 140 mmol/L (135-145); Total Bilirubin <0.2 mg/dL (0.3-1.2); Total Protein 6.4 g/dL (6.2-8.2)
--- NOTE | 2024-03-04 14:06 | P.PN ---
Subjective Progress Note Date: 03/04/24 Principal diagnosis: Abdominal pain This a pleasant 73-year-old female who presented to the emergency department with multiple complaints including that she was unable to stand up that her legs were so weak, generalized bodyaches with concern for an infection. Past medical history includes COPD, GERD, hyperlipidemia, hypertension, memory impairment, thyroid disorder, coronary artery disease with recent pacemaker placement. Patient has chronic pain and is on [place] at home. States she takes daily. States that when she came into the hospital she was starting to have some abdominal pain. She had not had a bowel movement in 4 to 5 days. She states that is not normal for her. She was given some laxative and was able to have a bowel movement this morning. Abdominal pain improved some. She denies any nausea or vomiting. She has had multiple imaging done of the abdomen without any acute findings. Patient's had leukocytosis since admission, with slight elevation today of 16.7. She has been afebrile. Urinalysis normal. Chest x- ray reports no acute cardiopulmonary disease/process. Patient had EGD and colonoscopy in September 2022. Upper endoscopy with findings of mild gastritis and colonoscopy normal. 03/04/2024 Patient seen and examined today as a follow-up. States she still having some lower abdominal pain. She did not have any bowel movement today. She states most the discomfort is if she is trying to bend or move. Still has leukocytosis without any fever. She is sitting up eating a regular breakfast, no nausea or vomiting. Objective - Vital Signs Vital signs: Vital Signs Temp 98.4 F 03/04/24 07:23 Pulse 65 03/04/24 07:23 Resp 20 03/04/24 07:23 BP 147/76 03/04/24 07:23 Pulse Ox 94 L 03/04/24 07:23 FiO2 21 02/26/24 07:50 Intake & Output 03/03/24 03/04/24 03/04/24 18:59 06:59 18:59 Weight 101.151 kg Other: Voiding Method Toilet Toilet Diaper Diaper Incontinent Incontinent # Voids 2 2 - Exam General appearance: The patient is alert, oriented, appears in no acute distress. HET: Head is normocephalic and atraumatic. Conjunctiva pink. Sclera anicteric. Neck: Supple without lymphadenopathy. Abdomen: Soft, mild lower abdominal tenderness, nondistended. Extremities: Normal skin color and turgor. No pedal edema Skin: No rashes, no jaundice Neurological: No focal deficits. Alert and oriented. - Labs CBC & Chem 7: 03/04/24 04:33 03/04/24 04:33 Labs: Abnormal Lab Results - Last 24 Hours (Table) 03/04/24 03/04/24 Range/Units 04:33 04:33 WBC 16.39 H (4.50-10.00) X 10*3/uL RBC 3.70 L (4.10-5.20) X 10*6/uL Hgb 11.1 L (12.0-15.0) g/dL Hct 36.1 L (37.2-46.3) % MCV 97.6 H (80.0-97.0) FL MCHC 30.7 L (32.0-37.0) g/dL Immature Gran # 0.46 H (0.00-0.04) X 10*3/uL Neutrophils # 11.87 H (1.80-7.70) X 10*3/uL Monocytes # 1.29 H (0.20-1.00) X 10*3/uL Eosinophils # 0.41 H (0.04-0.35) X 10*3/uL Basophils # 0.14 H (0.00-0.10) X 10*3/uL Anion Gap 12.20 H (4.00-12.00) mmol/L Total Bilirubin <0.2 L (0.3-1.2) mg/dL Albumin 3.4 L (3.8-4.9) g/dL Albumin/Globulin Ratio 1.13 L (1.60-3.17) Ratio Microbiology - Last 24 Hours (Table) 02/27/24 13:00 Blood Culture - Final Blood 02/27/24 12:52 Blood Culture - Final Blood Assessment and Plan (1) Abdominal pain Narrative/Plan: 73-year-old female presented with multiple complaints to the emergency department but her main complaint was lower extremity weakness. She also had complaints of abdominal pain and constipation since she came into the hospital. Had been 4 to 5 days prior to her bowel movement this morning. She was given lactulose and then subsequently had a bowel movement today. Denies any blood or black stool in her bowels. Denies any nausea or vomiting. Also presenting with leukocytosis unclear etiology. Abdominal pain appears secondary to constipat ion, multiple images with no acute findings. Recommend treat constipation which is likely secondary to opioid use. Discussed importance with patient for regular bowel regimen. Recent EGD and colonoscopy in September 2022 with out any acute findings. Current Visit: Yes Status: Acute Code(s): R10.9 - UNSPECIFIED ABDOMINAL PAIN SNOMED Code(s): 70933671 (2) Constipation Current Visit: Yes Status: Acute Code(s): K59.00 - CONSTIPATION, UNSPECIFIED SNOMED Code(s): 99188051 (3) Opioid use Current Visit: Yes Status: Acute Code(s): F11.90 - OPIOID USE, UNSPECIFIED, UNCOMPLICATED SNOMED Code(s): 70391765 (4) Leukocytosis Narrative/Plan: Unclear etiology of leukocytosis, consider consultation to infectious disease for persistent leukocytosis. Current Visit: Yes Status: Acute Code(s): D72.829 - ELEVATED WHITE BLOOD CELL COUNT, UNSPECIFIED SNOMED Code(s): 226929272 Plan: 1. Continue symptomatic and supportive care 2. Discontinue lactulose as could cause secondary cramping 3. Increase MiraLAX to twice daily. Recommend discharge on MiraLAX for possible opioid-induced constipation 4. May continue Bentyl 5. No further gastroenterology workup planned. Patient had recent EGD and colonoscopy September 2022 with findings of mild gastritis with a normal colonoscopy 6. Consider consultation to infectious disease for leukocytosis Thank you for this consultation, we will continue to follow. Dr. Danna Garrett I agree with the dictator's note, documented as a scribe by Lynn Mckeon.
[2024-03-04] MEDS: IOPAMIDOL CONTRAST (ORAL USE) VIAL PO PRN (14:21)
--- NOTE | 2024-03-04 15:01 | P.PN ---
Subjective Progress Note Date: 03/04/24 Patient is 71-year-old female with COPD, GERD, hyperlipidemia, hypertension, thyroid disorder, Alzheimers who presents with weakness. Her symptoms began Friday and have progressed to a point where she states she cannot stand by herself. Pacemaker placed 1 week ago and she is concerned for infection due to some soreness at site of pacemaker placement. She also has stated a long history of urinary incontinence for which she uses adult diapers and bedpan at baseline. She endorses chronic cough with some shortness of breath. Which she states is at her baseline. Patient reports absence of fever, chills, chest pain, palpitations, diaphoresis, abdominal pain, and dysuria. Overnight patient states she was disoriented and had 1 episode of urinary incontinence. She has no other complaints today. Labs in ER unremarkable for leukocytosis 14.2, sodium 135, BUN 29, creatinine 1.46, glucose 134, AST 47, ALP 134, troponin 0.021, UA significant for cloudy appearance, protein 2+, blood moderate, leukocyte esterase large, RBC 13, WBC> 182 with bacteria, viral panel negative UDS positive for benzodiazepine. EKG done in the ER independently interpreted showed heart rate of 88, no ST segment elevation or depression seen, no T-wave inversions seen. Chest x-ray done independently interpreted in the ER showed no acute process. Air noted in right upper quadrant likely loops of bowel. CT chest abdomen pelvis with contrast done independently interpreted showed no suspicious changes for acute pneumoperitoneum, some air present within colon anterior to the liver. Multiple bilateral renal cysts, small area of increased density in anterior peripheral right lung. 02/27/2024 Patient seen and examined at bedside. No acute events overnight. She remains afebrile. She continues to endorse lower abdominal pain. She also states her urination is improving. She continues on Rocephin 1 g daily. PT suggesting subacute rehab will continue to follow her. WBC remains stable. Today's labs WBC 12.8, hemoglobin 12.5, MCV 104.4, sodium 135, potassium 5.6, BUN 29, creatinine 1.14, glucose 139, AST 134, ALT 93. 02/27. Patient seen and examined. States abdominal pain has improved. Patient seen and examined at bedside. States she is having regular bowel movements now, continues to endorse lower abdominal pain. Repeat UA. Blood cultures negative thus far. Today's labs WBC 15.1, sodium 138, potassium 4.7. 03/02/2024 Patient seen and examined at the side. Patient states he is to have regular bowel movements, with diarrhea. She continues to endorse lower abdominal pain which has not improved. Today's labs WBC 16.54 hemoglobin 10.6, sodium 139, potassium 4.4, UA negative. 03/03/2024 Patient seen and examined at the side. She continues to endorse lower abdominal pain. Leukocytosis persistent, afebrile. Labs WBC 16.7, hemoglobin 11.1. Sodium 135, AST ALT downtrending. Chest and abdominal x-ray findings of no acute processes. 03/04/2024 Patient is seen and examined at bedside she continues to endorse her lower abdominal pain. She continues on ceftriaxone. ID was consulted for ongoing leukocytosis with no clear origin. Today's labs significant for WBC 16.39, hemoglobin 11.1, platelets 359. REVIEW OF SYSTEMS: Pertinent positives and negatives noted in HPI. PHYSICAL EXAMINATION: Vitals reviewed GENERAL: No acute distress. Well developed, well nourished. Obese HEENT: Pupils are round and equally reacting to light. EOMI. No scleral icterus. Normocephalic, atraumatic. CARDIOVASCULAR: S1 and S2 present. No murmurs, rubs, or gallops. PULMONARY: Diminished air movement bilaterally, no wheezing, rhonchi, or crackles. ABDOMEN: Soft, generalized tenderness, nondistended, normoactive bowel sounds. No palpable organomegaly. MUSCULOSKELETAL: No apparent joint swelling and deformities. EXTREMITIES: No apparent cyanosis, clubbing, or pedal edema. NEUROLOGICAL: The patient is alert and oriented x3, Gross neurological examination did not reveal any focal deficits. SKIN: No apparent rashes. Assessment and plan Patient is 71-year-old female with COPD, GERD, hyperlipidemia, hypertension, thyroid disorder, Alzheimers, who is treated for UTI, and JUSTIN. #Leukocytosis, unknown origin Left shift immature granulocytes Initial concern for pacemaker site tenderness Repeat UA unremarkable Chest x-ray and abdominal x-ray unremarkable Blood cultures negative thus far Stool culture pending No current steroid use Continues on ceftriaxone 1g every 24 for UTI, day # 8 ID consulted #Lower abdominal pain #Altered bowel habits, constipation predominant CT abdomen with no acute process Continue MiraLAX, Protonix, dicyclomine GI following # Urinary tract infection #JUSTIN likely due to dehydration - UA with significant leukocyte esterase Repeat UA unremarkable Continue Rocephin 1 g daily Blood cultures negative thus far Monitor BMP # Lower extremity weakness, improved # COPD not in acute exacerbation, chronic cough Continue Ventolin #Hyperkalemia Monitor BMP, hyperkalemia resolved #Sick sinus syndrome, with permanent dual-chamber pacemaker implantation 1129- [id number] #Chest wall tenderness at pacemaker insertion site No sign of infection Continue monitor Cardiology signed off Chronic Medical Conditions # Essential hypertension - Resume home Losartan #Hyperlidemia - Resume home simvastatin #Alzheimer's Restart home meds #Hypothyroidism - Resume home Synthroid #GERD - Resume home Pantoprazole #Anxiety/Depression - Resume home bupropion, fluoxetine F: P.o. E: Replete as needed N: Heart healthy diet DVT ppx: Subq heparin every 8 hours Code status: Full code Anticipated discharge place: Home with home health services Anticipated discharge time: Tomorrow if leukocytosis improved Dictation was produced using [employer] dictation software. Please excuse any grammatical, word or spelling errors. Objective - Vital Signs Vital signs: Vital Signs Temp 98.4 F 03/04/24 07:23 Pulse 65 03/04/24 07:23 Resp 20 03/04/24 07:23 BP 147/76 03/04/24 07:23 Pulse Ox 94 L 03/04/24 07:23 FiO2 21 02/26/24 07:50 Intake & Output 03/03/24 03/04/24 03/04/24 18:59 06:59 18:59 Weight 101.151 kg Other: Voiding Method Toilet Toilet Diaper Diaper Incontinent Incontinent # Voids 2 2 - Labs CBC & Chem 7: 03/04/24 04:33 03/04/24 04:33 Labs: Abnormal Lab Results - Last 24 Hours (Table) 03/04/24 03/04/24 Range/Units 04:33 04:33 WBC 16.39 H (4.50-10.00) X 10*3/uL RBC 3.70 L (4.10-5.20) X 10*6/uL Hgb 11.1 L (12.0-15.0) g/dL Hct 36.1 L (37.2-46.3) % MCV 97.6 H (80.0-97.0) FL MCHC 30.7 L (32.0-37.0) g/dL Immature Gran # 0.46 H (0.00-0.04) X 10*3/uL Neutrophils # 11.87 H (1.80-7.70) X 10*3/uL Monocytes # 1.29 H (0.20-1.00) X 10*3/uL Eosinophils # 0.41 H (0.04-0.35) X 10*3/uL Basophils # 0.14 H (0.00-0.10) X 10*3/uL Anion Gap 12.20 H (4.00-12.00) mmol/L Total Bilirubin <0.2 L (0.3-1.2) mg/dL Albumin 3.4 L (3.8-4.9) g/dL Albumin/Globulin Ratio 1.13 L (1.60-3.17) Ratio Microbiology - Last 24 Hours (Table) 02/27/24 13:00 Blood Culture - Final Blood 02/27/24 12:52 Blood Culture - Final Blood
[2024-03-04] MEDS: metroNIDAZOLE 500 MG TAB PO SCH (16:36)
--- NOTE | 2024-03-04 17:59 | CT ---
EXAMINATION TYPE: CT abdomen pelvis w con DATE OF EXAM: 03/04/2024 4:43 PM COMPARISON: None. CLINICAL INDICATION: Female, 73 years old with history of Leukocytosis, abdominal pain, UTI, Weakness , dehydration. Leakocytosis, abdominal pain. TECHNIQUE:CT scan of the abdomen and pelvis is performed with Oral Contrast and with IV Contrast, pat ient injected with 100 ml mL of Isovue 300. CT DLP: 2047.0 mGycm, Automated exposure control for dose reduction was used. FINDINGS: LUNG BASES-: No visible nodule. No infiltrate. LIVER/GB: No calcified gallstones. No space occupying hepatic lesion. Biliary tree is of normal ca liber. PANCREAS: No inflammation. No distinct mass. SPLEEN: No splenic enlargement. No lesion seen. ADRENALS: No nodule. No thickening. KIDNEYS/BLADDER: No hydronephrosis. Small renal calculi difficult to exclude. Multiple renal cysts a re redemonstrated. Urinary bladder grossly unremarkable. BOWEL: Normal bowel caliber. No inflammation. Moderate fecal stasis. Poor visualization of the appen pat. GENITAL ORGANS: No gross abnormality. LYMPH NODES: No greater than 1cm abdominal or pelvic lymph nodes are appreciated. AORTA: No significant abnormality. OSSEOUS STRUCTURES: No significant abnormality is seen. OTHER: No significant additional abnormality is seen. IMPRESSION: 1. No acute process seen to account for the patient's symptoms. [facility] J Carlos Cohn, , 03/04/2024 5:56 PM
[2024-03-04] MEDS: polyethylene glycoL 3350 17 GM POWD.PACK PO SCH (21:30)
[2024-03-05 08:02] VITALS: PULSE 62
--- NOTE | 2024-03-05 09:30 | P.CONS ---
History of Present Illness - Reason for Consult Consult date: 03/04/24 Leukocytosis of unknown origin Requesting physician: Surijt Davis - Chief Complaint Weakness generalized bodyaches x days - History of Present Illness Patient is a 73-year-old female with a past medical history significant for hypertension hyperlipidemia osteoarthritis reflux and COPD patient recently did have a left chest wall pacemaker placement and presented to the hospital about 9 days ago on 02/25/2024 for evaluation of generalized bodyaches and weakness patient did not have low-grade fever of 99.3 F on presentation, no high-grade fever have been reported during this admission patient did have a white count of 14.2 on admission with subsequent normalized to 9.62 on 02/28/2024 however the patient white count is slowly trending up and is up to 16.39 today that has prompted this infectious disease consultation today patient currently denies having any fever or any chills denies any headache or URI symptoms no chest pain shortness of breath or cough has been complaining of some vague lower abdominal pain and constipation did have some nausea but no vomiting and no urinary symptoms and the patient denies having any pain or swelling at the pacemaker site patient is currently on empiric Rocephin started on 02/26/2024 Review of Systems Positive point and negatives has been mentioned in the HPI, complete review of systems was performed and all other systems are negative Past Medical History Past Medical History: COPD, GERD/Reflux, Hyperlipidemia, Hypertension, Memory Impairment, Osteoarthritis (OA), Thyroid Disorder Additional Past Medical History / Comment(s): urinary incontinence, crushed tailbone, herniated discs History of Any Multi-Drug Resistant Organisms: None Reported Past Surgical History: Appendectomy, Section, Heart Catheterization, Pacemaker Additional Past Surgical History / Comment(s): NECK FUSION, colonoscopy Past Anesthesia/Blood Transfusion Reactions: No Reported Reaction, Motion Sickness Type of Cardiac Device: Unknown Device Placement Date:: 02/13/24 Past Psychological History: Anxiety, Depression Smoking Status: Former smoker Past Alcohol Use History: Rare Additional Past Alcohol Use History / Comment(s): STARTED SMOKING AT AGE 18- SMOKES <1/2PPD Past Drug Use History: None Reported Additional Drug Use History / Comment(s): quit smoking 2023. - Past Family History Mother Family Medical History: Cancer Father Family Medical History: Cancer Additional Family Medical History / Comment(s): PROSTATE Brother(s) Family Medical History: Cancer Additional Family Medical History / Comment(s): ESOPHAGUS CANCER Sister(s) Family Medical History: Cancer Additional Family Medical History / Comment(s): BREAST Medications and Allergies Home Medications Medication Instructions Recorded Confirmed Type Simvastatin [Zocor] 40 mg PO HS 08/29/15 02/25/24 History oxyBUTYnin chloride [Ditropan] 5 mg PO DAILY 08/29/15 02/25/24 History Acetaminophen [Tylenol Arthritis] 650 mg PO BID 10/24/15 02/25/24 History Aspirin EC [Ecotrin Low Dose] 81 mg PO DAILY 10/24/15 02/25/24 History Donepezil HCl [Aricept] 10 mg PO HS 10/17/21 02/25/24 History Omeprazole 20 mg PO DAILY 10/17/21 02/25/24 History buPROPion HCL [buPROPion HCL SR] 150 mg PO Q12HR 10/17/21 02/25/24 History Albuterol Inhaler [Ventolin Hfa 2 puff INHALATION RT-Q6H PRN 02/10/24 02/25/24 History Inhaler] Ascorbic Acid [Vitamin C] 1,000 mg PO DAILY 02/10/24 02/25/24 History Cholecalciferol [Vitamin D3 (25 50 mcg PO DAILY 02/10/24 02/25/24 History Mcg = 1000 Iu)] Cyanocobalamin (Vitamin B-12) 1,000 mcg PO DAILY 02/10/24 02/25/24 History [Vitamin B-12] FLUoxetine HCL 40 mg PO DAILY 02/10/24 02/25/24 History Ferrous Sulfate [Iron (65 MG 325 mg PO BID 02/10/24 02/25/24 History Elemental)] HYDROcodone/APAP 10-325MG [[place] 1 tab PO BID PRN 02/10/24 02/25/24 History 10-325] Memantine [Namenda] 5 mg PO BID 02/10/24 02/25/24 History Multivitamins, Thera [Multivitamin 1 tab PO DAILY 02/10/24 02/25/24 History (formulary)] Naloxone HCl [Narcan] 4 mg NASAL ONCE PRN 02/10/24 02/25/24 History Pregabalin [Lyrica] 200 mg PO TID 02/10/24 02/25/24 History Losartan [Cozaar] 25 mg PO DAILY #90 tab 02/13/24 02/25/24 Rx Levothyroxine Sodium [Synthroid] 75 mcg PO DAILY 02/25/24 02/25/24 History Allergies Allergy/AdvReac Type Severity Reaction Status Date / Time Penicillins Allergy Rash/Hives Verified 02/25/24 20:33 venom-honey bee Allergy Swelling Verified 02/25/24 20:33 [bee venom (honey bee)] Physical Exam Vitals: Vital Signs Temp Pulse Resp BP BP Pulse Ox 03/04/24 07:23 98.4 F 65 20 147/76 94 L 03/04/24 01:50 98.3 F 67 18 145/75 92 L 03/03/24 19:23 98.4 F 67 20 147/78 94 L 03/03/24 12:55 98.4 F 69 18 122/69 96 Intake and Output 03/03/24 03/04/24 03/04/24 22:59 06:59 14:59 Other: Voiding Method Toilet Diaper Incontinent # Voids 2 2 Weight 101.151 kg GENERAL DESCRIPTION: Elderly female lying in bed, no distress. No tachypnea or accessory muscle of respiration use. HEENT: Shows Pallor , no scleral icterus. Oral mucous membrane is dry. No pharyngeal erythema or thrush NECK: Trachea central, no thyromegaly. LUNGS: Unlabored breathing. Clear to auscultation anteriorly. No wheeze or crackle. HEART: S1, S2, regular rate and rhythm. Left chest wall pacemaker site with no swelling no redness or drainage ABDOMEN: Soft, no tenderness , EXTREMITIES: No edema of feet. SKIN: No rash, no masses palpable. NEUROLOGICAL: The patient is awake, alert, oriented x3, mood and affect normal. Results CBC & Chem 7: 03/04/24 04:33 03/04/24 04:33 Labs: Abnormal Lab Results - Last 24 Hours (Table) 03/04/24 03/04/24 Range/Units 04:33 04:33 WBC 16.39 H (4.50-10.00) X 10*3/uL RBC 3.70 L (4.10-5.20) X 10*6/uL Hgb 11.1 L (12.0-15.0) g/dL Hct 36.1 L (37.2-46.3) % MCV 97.6 H (80.0-97.0) FL MCHC 30.7 L (32.0-37.0) g/dL Immature Gran # 0.46 H (0.00-0.04) X 10*3/uL Neutrophils # 11.87 H (1.80-7.70) X 10*3/uL Monocytes # 1.29 H (0.20-1.00) X 10*3/uL Eosinophils # 0.41 H (0.04-0.35) X 10*3/uL Basophils # 0.14 H (0.00-0.10) X 10*3/uL Anion Gap 12.20 H (4.00-12.00) mmol/L Total Bilirubin <0.2 L (0.3-1.2) mg/dL Albumin 3.4 L (3.8-4.9) g/dL Albumin/Globulin Ratio 1.13 L (1.60-3.17) Ratio Microbiology - Last 24 Hours (Table) 02/27/24 13:00 Blood Culture - Final Blood 02/27/24 12:52 Blood Culture - Final Blood Assessment and Plan (1) Penicillin allergy Current Visit: Yes Status: Acute Code(s): Z88.0 - ALLERGY STATUS TO PENICILLIN SNOMED Code(s): 22321086 (2) Leukocytosis Current Visit: Yes Status: Acute Code(s): D72.829 - ELEVATED WHITE BLOOD CELL COUNT, UNSPECIFIED SNOMED Code(s): 262438262 Plan: 1patient with elevated white count and this patient has been the hospital for almost 9 days now with initial presentation with generalized bodyaches did have a low-grade fever then but no fever since then patient did have a initial CT chest abdominal pelvis that was done without any contrast did not show any acute abnormality not complaining of some abdominal pain and constipation possible abdominal source 2patient with a penicillin allergy that developed in the number of antibiotics safe to use 3we will check a CT of abdominal pelvis with oral and IV contrast 4continue with Rocephin and oral Flagyl We will follow on clinical condition and cultures to further adjust medication if needed Thank you for this consultation we will follow the patient along with you Dictation was produced using [employer] software. please excuse any grammatical, word or spelling errors. Time with Patient: Greater than 30
[2024-03-05 10:34] LABS: Basophils # (A) 0.06 X 10*3/uL (0.00-0.10); Basophils % (A) 0.4 %; Eosinophils # (A) 0.33 X 10*3/uL (0.04-0.35); Eosinophils % (A) 2.1 %; HCT 34.4 % (37.2-46.3); Lymphocytes # (A) 2.19 X 10*3/uL (0.90-5.00); Lymphocytes % (A) 13.7 %; MCH 30.8 pg (27.0-32.0); MCV 96.4 FL (80.0-97.0); Monocytes # (A) 1.26 X 10*3/uL (0.20-1.00); Monocytes % (A) 7.9 %; NRBC Per 100 WBC 0 X 10*3/uL (0.00-0.01); Neutrophils % (A) 74.2 %; Platelet Count 381 X 10*3/uL (140-440); RBC 3.57 X 10*6/uL (4.10-5.20); RDW 14.3 % (11.5-14.5); WBC 16.01 X 10*3/uL (4.50-10.00)
[2024-03-05 11:01] LABS: ALT 34 U/L (8-44); AST 25 U/L (13-35); Albumin 3.5 g/dL (3.8-4.9); Albumin/Globulin Ratio 1.09 Ratio (1.60-3.17); Alkaline Phosphatase 105 U/L (41-126); Blood Urea Nitrogen 18.7 mg/dL (9.0-27.0); Calcium 9.4 mg/dL (8.7-10.3); Carbon Dioxide 30.6 mmol/L (21.6-31.8); Chloride 97 mmol/L (96-109); Globulin 3.2 g/dL (1.6-3.3); Glucose 88 mg/dL (70-110); Potassium 5.2 mmol/L (3.5-5.5); Sodium 137 mmol/L (135-145); Total Bilirubin <0.2 mg/dL (0.3-1.2); Total Protein 6.7 g/dL (6.2-8.2)
--- NOTE | 2024-03-05 12:15 | P.PN ---
Subjective Progress Note Date: 03/05/24 Principal diagnosis: Abdominal pain This a pleasant 73-year-old female who presented to the emergency department with multiple complaints including that she was unable to stand up that her legs were so weak, generalized bodyaches with concern for an infection. Past medical history includes COPD, GERD, hyperlipidemia, hypertension, memory impairment, thyroid disorder, coronary artery disease with recent pacemaker placement. Patient has chronic pain and is on [place] at home. States she takes daily. States that when she came into the hospital she was starting to have some abdominal pain. She had not had a bowel movement in 4 to 5 days. She states that is not normal for her. She was given some laxative and was able to have a bowel movement this morning. Abdominal pain improved some. She denies any nausea or vomiting. She has had multiple imaging done of the abdomen without any acute findings. Patient's had leukocytosis since admission, with slight elevation today of 16.7. She has been afebrile. Urinalysis normal. Chest x- ray reports no acute cardiopulmonary disease/process. Patient had EGD and colonoscopy in September 2022. Upper endoscopy with findings of mild gastritis and colonoscopy normal. 03/04/2024 Patient seen and examined today as a follow-up. States she still having some lower abdominal pain. She did not have any bowel movement today. She states most the discomfort is if she is trying to bend or move. Still has leukocytosis without any fever. She is sitting up eating a regular breakfast, no nausea or vomiting. Fall 2023 Patient seen and examined today as a follow-up. She states that she had a large bowel movement yesterday evening. She is feeling better. She is requesting to be discharged home. She denies any nausea or vomiting. She is tolerating her diet. Denies any blood in her stool. Objective - Vital Signs Vital signs: Vital Signs Temp 98.1 F 03/05/24 07:14 Pulse 62 03/05/24 07:14 Resp 14 03/05/24 07:14 BP 156/76 03/05/24 07:14 Pulse Ox 95 03/05/24 07:14 FiO2 21 02/26/24 07:50 Intake & Output 03/04/24 03/05/24 03/05/24 18:59 06:59 18:59 Intake Total 658 Balance 658 Intake: Oral 658 Other: Voiding Method Toilet Toilet Toilet Diaper Bedside Commode Bedside Commode Incontinent Diaper Diaper Incontinent Incontinent # Voids 3 2 # Bowel Movements 1 1 - Exam General appearance: The patient is alert, oriented, appears in no acute distress. HET: Head is normocephalic and atraumatic. Conjunctiva pink. Sclera anicteric. Neck: Supple without lymphadenopathy. Abdomen: Soft, mild lower abdominal tenderness, nondistended. Extremities: Normal skin color and turgor. No pedal edema Skin: No rashes, no jaundice Neurological: No focal deficits. Alert and oriented. - Labs CBC & Chem 7: 03/05/24 06:45 03/05/24 06:45 Labs: Abnormal Lab Results - Last 24 Hours (Table) 03/05/24 03/05/24 Range/Units 06:45 06:45 WBC 16.01 H (4.50-10.00) X 10*3/uL RBC 3.57 L (4.10-5.20) X 10*6/uL Hgb 11.0 L (12.0-15.0) g/dL Hct 34.4 L (37.2-46.3) % Immature Gran # 0.27 H (0.00-0.04) X 10*3/uL Neutrophils # 11.90 H (1.80-7.70) X 10*3/uL Monocytes # 1.26 H (0.20-1.00) X 10*3/uL Est GFR (CKD-EPI) 53 L (>=60) Total Bilirubin <0.2 L (0.3-1.2) mg/dL Albumin 3.5 L (3.8-4.9) g/dL Albumin/Globulin Ratio 1.09 L (1.60-3.17) Ratio Microbiology - Last 24 Hours (Table) 03/03/24 12:15 Stool Culture - Preliminary Stool Assessment and Plan (1) Abdominal pain Narrative/Plan: 73-year-old female presented with multiple complaints to the emergency department but her main complaint was lower extremity weakness. She also had complaints of abdominal pain and constipation since she came into the hospital. Had been 4 to 5 days prior to her bowel movement this morning. She was given lactulose and then subsequently had a bowel movement today. Denies any blood or black stool in her bowels. Denies any nausea or vomiting. Also presenting with leukocytosis unclear etiology. Abdominal pain appears secondary to const ipation, multiple images with no acute findings. Recommend treat constipation which is likely secondary to opioid use. Discussed importance with patient for regular bowel regimen. Recent EGD and colonoscopy in September 2022 with out any acute findings. Current Visit: Yes Status: Acute Code(s): R10.9 - UNSPECIFIED ABDOMINAL PAIN SNOMED Code(s): 37900600 (2) Constipation Narrative/Plan: Continue with MiraLAX twice daily. Discussed with patient she can titrate to take 1-2 times daily at home. Current Visit: Yes Status: Acute Code(s): K59.00 - CONSTIPATION, UNSPECIFIED SNOMED Code(s): 57331370 (3) Opioid use Current Visit: Yes Status: Acute Code(s): F11.90 - OPIOID USE, UNSPECIFIED, UNCOMPLICATED SNOMED Code(s): 97320410 (4) Leukocytosis Narrative/Plan: Unclear etiology of leukocytosis, consider consultation to infectious disease for persistent leukocytosis. Current Visit: Yes Status: Acute Code(s): D72.829 - ELEVATED WHITE BLOOD CELL COUNT, UNSPECIFIED SNOMED Code(s): 108682355 Plan: 1. Continue symptomatic and supportive care 2. Continue MiraLAX twice daily, on discharge patient may titrate to take 1-2 times daily. 3. May continue Bentyl 4. No further gastroenterology workup planned. Patient had recent EGD and colonoscopy September 2022 with findings of mild gastritis with a normal colonoscopy Thank you for this consultation, patient is cleared from gastroenterology for discharge. We will sign off at this time. Dr. Danna Garrett I agree with the dictator's note, documented as a scribe by [email or web address] Mckeon.
[2024-03-05 13:26] VITALS: BP 144/80; RESP 16; TEMP 98
--- NOTE | 2024-03-05 19:38 | P.DS ---
Providers Date of admission: 02/25/24 20:26 Expected date of discharge: 03/05/24 Attending physician: William Salazar Consults: 03/03/24 07:05 Consult Physician Routine Consulting Provider: Christina Garrett Consult Reason/Comments: persistant abdominal pain/ leukocytosis Do you want consulting provider notified?: Yes 03/03/24 18:22 Consult Physician Routine Consulting Provider: Gato Grey Consult Reason/Comments: leukocytosis, unknown origin Do you want consulting provider notified?: Yes Primary care physician: [facility] Hospital Course: Discharge diagnoses; # Urinary tract infection #JUSTIN likely due to dehydration #Leukocytosis, unknown origin #Lower abdominal pain #Altered bowel habits, constipation predominant # Lower extremity weakness, improved # COPD not in acute exacerbation, chronic cough #Hyperkalemia, resolved #Sick sinus syndrome, with permanent dual-chamber pacemaker #Chest wall tenderness at pacemaker insertion site #Essential hypertension #Hyperlidemia #Alzheimer's #Hypothyroidism #GERD #Anxiety/Depression Hospital course; Patient is 71-year-old female with COPD, GERD, hyperlipidemia, hypertension, thyroid disorder, Alzheimers who presents with weakness. Her symptoms began Friday and have progressed to a point where she states she cannot stand by herself. Pacemaker placed 1 week ago and she is concerned for infection due to some soreness at site of pacemaker placement. She also has stated a long history of urinary incontinence for which she uses adult diapers and bedpan at baseline. She endorses chronic cough with some shortness of breath. Which she states is at her baseline. Patient reports absence of fever, chills, chest pain, palpitations, diaphoresis, abdominal pain, and dysuria. Overnight patient states she was disoriented and had 1 episode of urinary incontinence. She has no other complaints today. Labs in ER remarkable for leukocytosis 14.2, sodium 135, BUN 29, creatinine 1.46, glucose 134, AST 47, ALP 134, troponin 0.021, UA significant for cloudy appearance, protein 2+, blood moderate, leukocyte esterase large, RBC 13, WBC> 182 with bacteria, viral panel negative UDS positive for benzodiazepine. EKG done in the ER independently interpreted showed heart rate of 88, no ST segment elevation or depression seen, no T-wave inversions seen. Chest x-ray done independently interpreted in the ER showed no acute process. Air noted in right upper quadrant likely loops of bowel. CT chest abdomen pelvis with contrast done independently interpreted showed no suspicious changes for acute pneumoperitoneum, some air present within colon anterior to the liver. Multiple bilateral renal cysts, small area of increased density in anterior peripheral right lung. During hospital stay patient was treated for UTI, JUSTIN she was initially given a course of Rocephin which improved her symptoms. After initial course of antibiotics her WBC improved however she later developed leukocytosis of unknown etiology and seen by ID. Repeat chest x-ray, CT abdomen and UA were unremarkable. For her initial constipation, later diarrhea, and lower abdominal pain she was followed by GI. Patient is stable for discharge to home with home health services. On discharge she is given new medication Bentyl for abdominal pain and dyspepsia, MiraLAX for constipation, Ceftin and Flagyl for leukocytosis. She has a follow-up with her PCP and Dr. Christina Garrett gastroenterology. PHYSICAL EXAMINATION: Vitals reviewed GENERAL: No acute distress. Well developed, well nourished. Obese HEENT: Pupils are round and equally reacting to light. EOMI. No scleral icterus. Normocephalic, atraumatic. CARDIOVASCULAR: S1 and S2 present. No murmurs, rubs, or gallops. PULMONARY: Diminished air movement bilaterally, no wheezing, rhonchi, or crackles. ABDOMEN: Soft, nontender, nondistended, normoactive bowel sounds. No palpable organomegaly. MUSCULOSKELETAL: No apparent joint swelling and deformities. EXTREMITIES: No apparent cyanosis, clubbing, or pedal edema. NEUROLOGICAL: The patient is alert and oriented x3, Gross neurological examination did not reveal any focal deficits. SKIN: No apparent rashes. Dictation was produced using [employer] dictation software. please excuse any grammatical, word or spelling errors. Patient Condition at Discharge: Stable Plan - Discharge Summary Discharge Rx Participant: No New Discharge Prescriptions: New Dicyclomine [Bentyl] 10 mg PO TID PRN #21 cap PRN Reason: Dyspepsia cefuroxime axetiL [Ceftin] 500 mg PO BID #14 tab metroNIDAZOLE [Flagyl] 500 mg PO TID #21 tab polyethylene glycoL 3350 [Miralax] 17 gm PO BID #14 packet Continue Simvastatin [Zocor] 40 mg PO HS oxyBUTYnin chloride [Ditropan] 5 mg PO DAILY Aspirin EC [Ecotrin Low Dose] 81 mg PO DAILY Acetaminophen [Tylenol Arthritis] 650 mg PO BID Omeprazole 20 mg PO DAILY Donepezil HCl [Aricept] 10 mg PO HS Ascorbic Acid [Vitamin C] 1,000 mg PO DAILY Memantine [Namenda] 5 mg PO BID Naloxone HCl [Narcan] 4 mg NASAL ONCE PRN PRN Reason: SUSPECTED OPIOID OVERDOSE HYDROcodone/APAP 10-325MG [[place] 10-325] 1 tab PO BID PRN PRN Reason: Pain Albuterol Inhaler [Ventolin Hfa Inhaler] 2 puff INHALATION RT-Q6H PRN PRN Reason: Shortness Of Breath Losartan [Cozaar] 25 mg PO DAILY #90 tab Levothyroxine Sodium [Synthroid] 75 mcg PO DAILY buPROPion HCL [buPROPion HCL SR] 150 mg PO Q12HR Cholecalciferol [Vitamin D3 (25 Mcg = 1000 Iu)] 50 mcg PO DAILY Cyanocobalamin (Vitamin B-12) [Vitamin B-12] 1,000 mcg PO DAILY Multivitamins, Thera [Multivitamin (formulary)] 1 tab PO DAILY Pregabalin [Lyrica] 200 mg PO TID Ferrous Sulfate [Iron (65 MG Elemental)] 325 mg PO BID FLUoxetine HCL 40 mg PO DAILY Discharge Medication List Simvastatin [Zocor] 40 mg PO HS 08/29/15 [History] oxyBUTYnin chloride [Ditropan] 5 mg PO DAILY 08/29/15 [History] Acetaminophen [Tylenol Arthritis] 650 mg PO BID 10/24/15 [History] Aspirin EC [Ecotrin Low Dose] 81 mg PO DAILY 10/24/15 [History] Donepezil HCl [Aricept] 10 mg PO HS 10/17/21 [History] Omeprazole 20 mg PO DAILY 10/17/21 [History] buPROPion HCL [buPROPion HCL SR] 150 mg PO Q12HR 10/17/21 [History] Albuterol Inhaler [Ventolin Hfa Inhaler] 2 puff INHALATION RT-Q6H PRN 02/10/24 [History] Ascorbic Acid [Vitamin C] 1,000 mg PO DAILY 02/10/24 [History] Cholecalciferol [Vitamin D3 (25 Mcg = 1000 Iu)] 50 mcg PO DAILY 02/10/24 [History] Cyanocobalamin (Vitamin B-12) [Vitamin B-12] 1,000 mcg PO DAILY 02/10/24 [History] FLUoxetine HCL 40 mg PO DAILY 02/10/24 [History] Ferrous Sulfate [Iron (65 MG Elemental)] 325 mg PO BID 02/10/24 [History] HYDROcodone/APAP 10-325MG [[place] 10-325] 1 tab PO BID PRN 02/10/24 [History] Memantine [Namenda] 5 mg PO BID 02/10/24 [History] Multivitamins, Thera [Multivitamin (formulary)] 1 tab PO DAILY 02/10/24 [History] Naloxone HCl [Narcan] 4 mg NASAL ONCE PRN 02/10/24 [History] Pregabalin [Lyrica] 200 mg PO TID 02/10/24 [History] Losartan [Cozaar] 25 mg PO DAILY #90 tab 02/13/24 [Rx] Levothyroxine Sodium [Synthroid] 75 mcg PO DAILY 02/25/24 [History] Dicyclomine [Bentyl] 10 mg PO TID PRN #21 cap 03/05/24 [Rx] cefuroxime axetiL [Ceftin] 500 mg PO BID #14 tab 03/05/24 [Rx] metroNIDAZOLE [Flagyl] 500 mg PO TID #21 tab 03/05/24 [Rx] polyethylene glycoL 3350 [Miralax] 17 gm PO BID #14 packet 03/05/24 [Rx] Follow up Appointment(s)/Referral(s): Maylin Yu MD [Primary Care Provider] - 03/23/24 3:00 pm Julian Garrett MD [STAFF PHYSICIAN] - 03/11/24 3:45 pm Patient Instructions/Handouts: Cefuroxime (By mouth), Metronidazole (By mouth), Polyethylene Glycol 3350 (By mouth) Discharge Disposition: HOME WITH HOME HEALTH SERVICES
== END 2024-03-05 15:48 | disposition home health service (06) | DRG 690 ==
LOC: EC 16:05 → OBSVTOIN 20:26 → 5NMEDONC 20:26
PROVIDERS: ADMIT Hospitalist; ATTEND Hospitalist
DX: N39.0 Urinary tract infection, site not specified (principal); N17.9 Acute kidney failure, unspecified; F02.83 Dementia in other diseases classified elsewhere, unspecified severity, with mood disturbance; F02.84 Dementia in other diseases classified elsewhere, unspecified severity, with anxiety; I49.5 Sick sinus syndrome; J44.9 Chronic obstructive pulmonary disease, unspecified; G30.9 Alzheimer's disease, unspecified; F32.A Depression, unspecified; E03.9 Hypothyroidism, unspecified; I11.9 Hypertensive heart disease without heart failure; R32 Unspecified urinary incontinence; N28.1 Cyst of kidney, acquired; E86.0 Dehydration; E78.5 Hyperlipidemia, unspecified; K21.9 Gastro-esophageal reflux disease without esophagitis; E87.5 Hyperkalemia; I25.10 Atherosclerotic heart disease of native coronary artery without angina pectoris; K59.00 Constipation, unspecified; G89.29 Other chronic pain; Z95.0 Presence of cardiac pacemaker; Z79.82 Long term (current) use of aspirin; Z79.890 Hormone replacement therapy; Z87.891 Personal history of nicotine dependence; Z88.0 Allergy status to penicillin; Z79.899 Other long term (current) drug therapy; Z98.1 Arthrodesis status
CPT/HCPCS: 36415; 71045; 71046; 71260; 74018; 74022; 74177; 80053; 80306; 81001; 81003; 84132; 84145; 84484; 85025; 85610; 85730; 87040; 87045; 87046; 87636; 93005; 94640; 94760; 96361; 96365; 96366; 96375; 99285